=== PATIENT | female | born 1995 | race Caucasian/White ===

== ENCOUNTER → 2019-05-10 11:52 | Outpatient (BNVA) | payer MEDICAID, SELFPAY | PROVIDERS: Visit Provider Social Worker | DX: F31.12 Bipolar disorder, current episode manic without psychotic features, moderate (principal); F43.12 Post-traumatic stress disorder, chronic; F60.3 Borderline personality disorder | CPT/HCPCS: 90834 ==

== ENCOUNTER 2019-05-29 11:03 | Emergency (ER) | payer MEDICAID, SELFPAY ==
[2019-05-29 11:16] VITALS: BP 126/91; PULSE 84; RESP 16; TEMP 36.9; O2SAT 99; BMI 35.2
[2019-05-29 11:28] VITALS: O2SAT 97
--- NOTE | 2019-05-29 11:34 | XR_ITS ---
WS: [id number] XR chest 1V portable [id number] REASON FOR EXAM: admission FINDINGS: The heart and mediastinal interfaces were normal. The lung lopez are well aerated no pneumonia, pleural effusion, pulmonary edema, no mass effect. The hilum and apices are normal. No osseous abnormalities. XR/XR chest 1V portable [id number] IMPRESSION: No active cardiopulmonary disease.
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
[2019-05-29 11:43] VITALS: PULSE 81; RESP 18; O2SAT 98
[2019-05-29 11:48] VITALS: PULSE 78
[2019-05-29 11:53] LABS: Rapid Strep A Test Negative (Negative)
[2019-05-29 12:02] LABS: Influenza A by IFA Negative (Negative); Influenza B by IFA Negative (Negative)
[2019-05-29 12:28] VITALS: BP 133/87; PULSE 80; RESP 17; O2SAT 98
== END 2019-05-29 12:29 | disposition home or self-care (01) ==
PROVIDERS: Emergency Provider Nurse Practitioner Family
DX: J02.9 Acute pharyngitis, unspecified (principal); R59.0 Localized enlarged lymph nodes; R05 Cough; R50.9 Fever, unspecified; J45.909 Unspecified asthma, uncomplicated; F17.200 Nicotine dependence, unspecified, uncomplicated
CPT/HCPCS: 71045; 87081; 87804; 87880; 94640; 99282; 99283; J7611

== ENCOUNTER → 2019-07-12 08:22 | Outpatient (BNVA) | payer MEDICAID, SELFPAY | PROVIDERS: Visit Provider Nurse Practitioner | DX: F31.71 Bipolar disorder, in partial remission, most recent episode hypomanic (principal) | CPT/HCPCS: 99214 ==

== ENCOUNTER 2019-08-03 13:55 | Outpatient (CLI) | payer MEDICAID, SELFPAY ==
--- NOTE | 2019-08-03 14:01 | XR_ITS ---
WS: [id number] PROCEDURE: XR chest 2V* [id number] CLINICAL INFORMATION: FEVER, WHEEZING, COUGH, ASTHMA EXACERBATION COMPARISON: May 29, 2019 FINDINGS: Heart: Normal cardiac silhouette. Lungs: Lungs are clear. No consolidation or pleural fluid. No acute pulmonary infiltrates. Bones: Normal visualized bony structures. XR/XR chest 2V* [id number] IMPRESSION: Normal chest
== END 2019-08-03 13:56 | disposition home or self-care (01) ==
LOC: RADWPI 13:59
PROVIDERS: PCP Nurse Practitioner Family; Visit Provider Nurse Practitioner Family
DX: R50.9 Fever, unspecified (principal); R05 Cough; J45.901 Unspecified asthma with (acute) exacerbation
CPT/HCPCS: 71046

== ENCOUNTER → 2019-08-16 08:24 | Outpatient (BNVA) | payer MEDICAID, SELFPAY | PROVIDERS: PCP Nurse Practitioner Family; Visit Provider Social Worker | DX: F31.71 Bipolar disorder, in partial remission, most recent episode hypomanic (principal) | CPT/HCPCS: 90834 ==

== ENCOUNTER → 2019-08-23 08:11 | Outpatient (BNVA) | payer MEDICAID, SELFPAY | PROVIDERS: PCP Nurse Practitioner Family; Visit Provider Nurse Practitioner | DX: F31.71 Bipolar disorder, in partial remission, most recent episode hypomanic (principal) | CPT/HCPCS: 80178; 99214 ==

== ENCOUNTER → 2019-09-06 08:35 | Outpatient (BNVA) | payer MEDICAID, SELFPAY | PROVIDERS: PCP Nurse Practitioner Family; Visit Provider Social Worker | DX: F31.71 Bipolar disorder, in partial remission, most recent episode hypomanic (principal) | CPT/HCPCS: 90832 ==

== ENCOUNTER 2019-09-09 16:40 | Emergency (ER) | payer MEDICAID, SELFPAY ==
[2019-09-09 16:48] VITALS: BMI 34.9
[2019-09-09 16:53] VITALS: BP 127/89; PULSE 78; RESP 16; TEMP 36.7; O2SAT 99
--- NOTE | 2019-09-09 17:05 | W.ED.ABDPA2 ---
Documented by User: TAJ Maxwell 09/09/19 21:01 HPI - Abdominal Pain General: Chief Complaint: Abdominal Pain Stated Complaint: L ABD PAIN/RECTAL BLEEDING/V Time Seen by Provider: 09/09/19 17:04 History of Present Illness: HPI narrative: Patient is a 24-year-old female comes to the ED with left lower quadrant abdominal pain, nausea/vomiting and diarrhea with red blood. Patient has a past medical history of IBS and has had colonoscopies in the past. Patient says symptoms started about 3 to 4 days ago. She is also had some fever and chills during that time. She had multiple episodes of vomiting and many episodes of diarrhea. She says she sometimes has trouble controlling her diarrhea. Her stools are described as loose, yellow and floating. She describes as having a little bit of bright red blood in the diarrhea recently. The abdominal pain is located in the left lower quadrant and she currently rates it a 5 out of 10. Patient also says that in the past she has had some problems with drinking alcohol but none currently. Patient does say that she takes Tylenol frequently for headaches. She said in the last week to 2 weeks she is taken Tylenol almost daily anywhere from 1500 to 3000 mg. She endorses decreased appetite over the past couple days. Denies any dysuria, hematuria, vaginal discharge. Associated Symptoms: Reports chills, diarrhea, fever(s), hematochezia (bright red), nausea and vomiting; Denies constipation, dysuria and hematuria Review of Systems Const: Reports: fever(s), chills and change in appetite (decreased); Denies: fatigue Eyes: Denies: change in vision or eye discomfort ENMT: Denies: throat pain, odynophagia, nasal discharge or nasal congestion Card: Denies: chest pain, palpitations, edema, swelling of feet/ankles, dyspnea on exertion or orthopnea Resp: Denies: dyspnea, productive cough or non-productive cough GI: Reports: abdominal pain (LLQ), nausea, vomiting, diarrhea and hematochezia (bright red); Denies: constipation : Denies: flank pain, dysuria or hematuria Musc: Denies: neck pain, back pain or extremity swelling Skin/Breast: Denies: rash or new lesions Neuro: Denies: headache(s), numbness in extremities or weakness in extremities PFSH ED PFSH: Medical History Bipolar disorder, in partial remission, most recent episode hypomanic Social History Smoking and tobacco status: current every day smoker Physical Exam Const: COMMON NORMALS: no acute distress, patient oriented x3 and alert GENERAL APPEARANCE: cooperative, comfortable and well hydrated NUTRITIONAL APPEARANCE: obese HENMT: COMMON NORMALS: normocephalic HEAD & SCALP: normocephalic MOUTH: Normal oral and palatal mucosa present THROAT: posterior oropharynx normal and uvula midline Eye: COMMON NORMALS: Equal, round and reactive pupils present PUPIL: Yes Equal, round and reactive pupils present Neck/C-Spine: COMMON NORMALS: supple GENERAL: Yes normal visual inspection Resp: COMMON NORMALS: normal respiratory effort, No retractions, No use of accessory muscles and clear to auscultation bilaterally EFFORT & INSPECTION: Yes able to speak in complete sentences AUSCULTATION: clear to auscultation bilaterally Cardio: COMMON NORMALS: regular rate, regular rhythm, S1 normal heart sound present, S2 normal heart sound present, No gallops present (Cardio), No clicks present (Cardio), No murmurs present (Cardio) and Peripheral pulses 2+ throughout RATE: regular rate RHYTHM: regular rhythm HEART SOUNDS: S1 normal heart sound present and S2 normal heart sound present PERIPHERAL PULSES: Peripheral pulses 2+ throughout GI: COMMON NORMALS: Normal to inspection, nondistended, normoactive bowel sounds present, Soft to palpation and no masses INSPECTION: Yes central obesity AUSCULTATION: Yes normoactive bowel sounds PALPATION: Yes Soft to palpation and Yes Tenderness to palpation present (GI) Details: LLQ (mild tenderness) : COMMON NORMALS: Yes no CVA tenderness BLADDER/KIDNEY EXAM: Yes no CVA tenderness Back/Pelvis: COMMON NORMALS: no CVA tenderness Extremity: COMMON NORMALS: normal to inspection and no pedal edema Neuro: COMMON NORMALS: patient oriented x3 SENSORIUM/ORIENTATION: Yes alert GAIT: Yes Normal gait present Skin: COMMON NORMALS: no rashes or lesions noted GENERAL SKIN EXAM: no rashes or lesions noted and dry skin Course Vital Signs: Vital signs: Vital Signs Temperature 98.1 F 09/09/19 16:53 Pulse Rate 71 09/09/19 20:29 Respiratory Rate 16 06/04/20 20:29 Blood Pressure 150/92 09/09/19 20:29 Pulse Oximetry 98 09/09/19 20:29 MDM - Abdominal Pain MDM Narrative: Medical decision making narrative: Patient is a 24-year-old female comes to the ED with left lower quadrant abdominal pain, nausea/vomiting and diarrhea described as yellow and floating. Past medical history of IBS and has had several colonoscopies in the past. Patient states she has been taking Tylenol up to 3 g daily for the past 1 to 2 weeks and has had some problems with alcohol in the past. CBC and CMP were unremarkable. Liver enzymes AST and ALT were elevated 842 and 581 respectively. Hepatitis panel was nonreactive and acetaminophen levels were checked and were normal. CT of the abdomen and pelvis showed some chronic inflammation in the colon. Patient was diagnosed with elevated liver enzymes and told to stop taking Tylenol and to abstain from drinking alcohol. Patient was also told to reduce Seroquel dose 200 mg and to contact behavioral health doctor who prescribes med to discuss med dose changes. Patient will follow-up with her PCP in a week to recheck liver enzymes and I placed referral to Dr. Anderson for patient to get further evaluation. Patient understood and agreed with plan. Lab Data: Attestation: I reviewed the patient's lab results. Labs: Lab Results 09/09/19 09/09/19 09/09/19 Range/Units 17:15 17:15 17:25 WBC 5.1 (4.0-10.0) 10^3/ uL RBC 4.85 (4.1-5.3) 10^6/u L Hgb 13.3 (11.5-15.3) g/dL Hct 41.1 (37.0-47.0) % MCV 84.7 (81-99) fL MCH 27.4 L (28.0-34.0) pg MCHC 32.4 (30.0-36.0) g/dL RDW 12.8 (12.1-15.1) % Plt Count 180 (130-400) 10^3/c mm MPV 10.9 H (7.4-10.4) fL Neut % (Auto) 48.5 % Lymph % (Auto) 30.3 % Deuel % (Auto) 17.2 % Eos % (Auto) 2.8 % Baso % (Auto) 0.8 % Neut # (Auto) 2.5 (1.8-7.7) 10^3/u L Lymph # (Auto) 1.5 (0.8-4.8) 10^3/u L Deuel # (Auto) 0.9 (0.2-0.9) 10^3/u L Eos # (Auto) 0.1 (0.0-0.8) 10^3/u L Baso # (Auto) 0.0 (0.0-0.1) 10^3/u L Nucleated RBC % (a uto) 0 % Nucleated RBCs # 0.0 /100WBC ESR (0-15) mm/hr Sodium (136-145) mmol/L Potassium (3.5-5.1) mmol/L Chloride (98-107) mmol/L Carbon Dioxide (22-29) mmol/L Anion Gap (5-19) BUN (6-20) mg/dL Creatinine (0.5-0.9) mg/dL GFR Calculation (90-130) mL/min Glucose (65-115) mg/dL Calculated Osmolal ity (285-295) mOsm/k g Calcium (8.5-10.5) mg/dL Total Bilirubin (0.15-1.2) mg/dL AST (0-32) U/L ALT (0-33) U/L Alkaline Phosphata se (35-105) IU/L C-Reactive Protein (0.0-4.9) mg/L Total Protein (6.6-8.7) g/dL Albumin (3.5-5.2) g/dL Globulin (1.3-4.6) g/dL Lipase (13-60) U/L Urine Color Yellow (Yellow) Urine Appearance Clear (CLEAR) Urine pH 5 (5-7) Ur Specific Gravit y 1.025 (1.005-1.030) Urine Protein Neg (Negative) Urine Glucose (UA) Norm (Normal) Urine Ketones Negative (Negative) Urine Blood Neg (Negative) Urine Nitrate Negative (Negative) Urine Bilirubin Neg (NEGATIVE) Urine Urobilinogen Norm (Negative) mg/dL Ur Leukocyte Libby ase Negative (Negative) Urine HCG, Qual Negative (Negative) Acetaminophen (10-30) ug/mL Ethyl Alcohol (0-10) mg/dL Hepatitis A IgM Ab (Nonreactive) Hep Bs Antigen (Nonreactive) Hep Bs Antibody (0-8.5) Hep B Core Total A b (Nonreactive) Hepatitis C Antibo dy (Nonreactive) 09/09/19 09/09/19 09/09/19 Range/Units 17:25 17:25 17:25 WBC (4.0-10.0) 10^3/ uL RBC (4.1-5.3) 10^6/u L Hgb (11.5-15.3) g/dL Hct (37.0-47.0) % MCV (81-99) fL MCH (28.0-34.0) pg MCHC (30.0-36.0) g/dL RDW (12.1-15.1) % Plt Count (130-400) 10^3/c mm MPV (7.4-10.4) fL Neut % (Auto) % Lymph % (Auto) % Deuel % (Auto) % Eos % (Auto) % Baso % (Auto) % Neut # (Auto) (1.8-7.7) 10^3/u L Lymph # (Auto) (0.8-4.8) 10^3/u L Deuel # (Auto) (0.2-0.9) 10^3/u L Eos # (Auto) (0.0-0.8) 10^3/u L Baso # (Auto) (0.0-0.1) 10^3/u L Nucleated RBC % (a uto) % Nucleated RBCs # /100WBC ESR 9 (0-15) mm/hr Sodium 138 (136-145) mmol/L Potassium 3.5 (3.5-5.1) mmol/L Chloride 106 (98-107) mmol/L Carbon Dioxide 23 (22-29) mmol/L Anion Gap 12.5 (5-19) BUN 10 (6-20) mg/dL Creatinine 0.6 (0.5-0.9) mg/dL GFR Calculation 125.0 (90-130) mL/min Glucose 80 (65-115) mg/dL Calculated Osmolal ity 281 L (285-295) mOsm/k g Calcium 8.9 (8.5-10.5) mg/dL Total Bilirubin 0.3 (0.15-1.2) mg/dL AST 842 H (0-32) U/L ALT 581 H (0-33) U/L Alkaline Phosphata se 61 (35-105) IU/L C-Reactive Protein 9.1 H (0.0-4.9) mg/L Total Protein 6.6 (6.6-8.7) g/dL Albumin 4.5 (3.5-5.2) g/dL Globulin 2.1 (1.3-4.6) g/dL Lipase 16 (13-60) U/L Urine Color (Yellow) Urine Appearance (CLEAR) Urine pH (5-7) Ur Specific Gravit y (1.005-1.030) Urine Protein (Negative) Urine Glucose (UA) (Normal) Urine Ketones (Negative) Urine Blood (Negative) Urine Nitrate (Negative) Urine Bilirubin (NEGATIVE) Urine Urobilinogen (Negative) mg/dL Ur Leukocyte Libby ase (Negative) Urine HCG, Qual (Negative) Acetaminophen (10-30) ug/mL Ethyl Alcohol (0-10) mg/dL Hepatitis A IgM Ab (Nonreactive) Hep Bs Antigen (Nonreactive) Hep Bs Antibody (0-8.5) Hep B Core Total A b (Nonreactive) Hepatitis C Antibo dy (Nonreactive) 09/09/19 09/09/19 09/09/19 Range/Units 17:25 17:25 17:25 WBC (4.0-10.0) 10^3/ uL RBC (4.1-5.3) 10^6/u L Hgb (11.5-15.3) g/dL Hct (37.0-47.0) % MCV (81-99) fL MCH (28.0-34.0) pg MCHC (30.0-36.0) g/dL RDW (12.1-15.1) % Plt Count (130-400) 10^3/c mm MPV (7.4-10.4) fL Neut % (Auto) % Lymph % (Auto) % Deuel % (Auto) % Eos % (Auto) % Baso % (Auto) % Neut # (Auto) (1.8-7.7) 10^3/u L Lymph # (Auto) (0.8-4.8) 10^3/u L Deuel # (Auto) (0.2-0.9) 10^3/u L Eos # (Auto) (0.0-0.8) 10^3/u L Baso # (Auto) (0.0-0.1) 10^3/u L Nucleated RBC % (a uto) % Nucleated RBCs # /100WBC ESR (0-15) mm/hr Sodium (136-145) mmol/L Potassium (3.5-5.1) mmol/L Chloride (98-107) mmol/L Carbon Dioxide (22-29) mmol/L Anion Gap (5-19) BUN (6-20) mg/dL Creatinine (0.5-0.9) mg/dL GFR Calculation (90-130) mL/min Glucose (65-115) mg/dL Calculated Osmolal ity (285-295) mOsm/k g Calcium (8.5-10.5) mg/dL Total Bilirubin (0.15-1.2) mg/dL AST (0-32) U/L ALT (0-33) U/L Alkaline Phosphata se (35-105) IU/L C-Reactive Protein (0.0-4.9) mg/L Total Protein (6.6-8.7) g/dL Albumin (3.5-5.2) g/dL Globulin (1.3-4.6) g/dL Lipase (13-60) U/L Urine Color (Yellow) Urine Appearance (CLEAR) Urine pH (5-7) Ur Specific Gravit y (1.005-1.030) Urine Protein (Negative) Urine Glucose (UA) (Normal) Urine Ketones (Negative) Urine Blood (Negative) Urine Nitrate (Negative) Urine Bilirubin (NEGATIVE) Urine Urobilinogen (Negative) mg/dL Ur Leukocyte Libby ase (Negative) Urine HCG, Qual (Negative) Acetaminophen < 5.0 L (10-30) ug/mL Ethyl Alcohol < 10 (0-10) mg/dL Hepatitis A IgM Ab Non-reactive (Nonreactive) Hep Bs Antigen Non-reactive (Nonreactive) Hep Bs Antibody 80.1 H (0-8.5) Hep B Core Total A b Non-reactive (Nonreactive) Hepatitis C Antibo dy Non-reactive (Nonreactive) Imaging Data ^: CT Abd/Pel: Attestation: I personally reviewed and interpreted this imaging study as follows: Radiologist's impression: [address] [place] [address] CT Scan Report Signed Patient: Amie Aguilar Unit #: [id number] : 1995 Age/Sex: 24 / F ADM Date: 09/09/19 Loc: ER Room/Bed: Attending Dr: Ordering Provider/Ordering MD: Denzel Wright Date of Service: 09/09/19 Procedure(s): CT abdomen pelvis w con* [id number] Accession Number(s): [id number] Report Number: [id number] PROCEDURE INFORMATION: Exam: CT Abdomen And Pelvis With Contrast Exam date and time: 09/09/2019 6:20 PM Age: 24 years old Clinical indication: Nausea and vomiting and other: Rectal bleeding; Abdominal pain; Localized; Left; Patient HX: H/o ibs; Additional info: Llq abdom pain, diarrhea, n/v TECHNIQUE: Imaging protocol: Computed tomography of the abdomen and pelvis with intravenous contrast. Radiation optimization: All CT scans at this facility use at least one of these dose optimization techniques: automated exposure control; mA and/or kV adjustment per patient size (includes targeted exams where dose is matched to clinical indication); or iterative reconstruction. Contrast material: OMNI 300; Contrast volume: 95 ml; Contrast route: IV COMPARISON: No relevant prior studies available. FINDINGS: There are tiny bilateral pleural effusions with adjacent atelectasis. Liver, spleen, pancreas, kidneys, and adrenal glands appear unremarkable. Urinary bladder is poorly distended. Appendix appears grossly unremarkable. Bowel loops do not appear significantly dilated. Fat deposition in pettit of proximal colon may be due to chronic inflammation. No large amount of free fluid demonstrated. Abdominal aorta does not appear dilated. CT/CT abdomen pelvis w con* [id number] IMPRESSION: There are tiny bilateral pleural effusions with adjacent atelectasis. Fat deposition in pettit of proximal colon may be due to chronic inflammation. Total DLP: 2003.64 mGy-cm Radiation Dose CTDIVOL = (mGy): DLP = 2003.64 (mGy-cm) Dictated By: Fay Meyers MD Signed By: Fay Meyers MD Signed Date/Time: 09/09/191858 DD/ 57 Discharge Plan Discharge Patient Disposition: Home, Self-Care Clinical Impression: Elevated liver enzymes, Chronic inflammation of colon Condition: Stable Prescriptions: No Action lithium carbonate 300 mg tablet extended release 600 mg PO BID Qty: 120 RF: 1 prazosin 2 mg capsule 2 mg PO BEDTIME Qty: 30 RF: 1 Seroquel 100 mg tablet 150 mg PO BEDTIME Qty: 45 RF: 1 sertraline [Zoloft] 50 mg tablet 50 mg PO DAILY Qty: 30 RF: 1 aspirin 325 mg Tablet 325 mg PO PRN RF: 0 Tylenol Extra Strength 500 mg Tablet 1,000 mg PO PRN RF: 0 ibuprofen 200 mg Tablet 800 - 1,000 mg PO PRN RF: 0 ProAir HFA 90 mcg/actuation Hfa Aerosol Inhaler 2 puff INHALATION Q4H PRN (Reason: Shortness Of Breath) RF: 0 Ambien 5 mg tablet 5 mg PO BEDTIME RF: 0 Discharge Orders: Discharge Order (Routine); Ordered 09/09/19 Ordered By: Denzel Wright Referrals: EVELYNE TOURE FNP [Primary Care Provider] - Discharge Diet: Regular Discharge Activity: Resume usual activity Activity Restrictions/Additional Instructions: I placed a referral for you to see Dr. Anderson the [facility] internal medicine doctor. You can also follow-up with your PCP in the next week for reevaluation. Recheck liver enzymes (AST and ALT) at your next appointment. Stop drinking alcohol and taking Tylenol. Also, call your behavioral health doctor to talk to him about reducing your Seroquel dose. I recommend reducing your Seroquel dose down to 100 mg at night. Discharge Date/Time: 09/09/19 20:34 Coding Level of Care Code ED Composing Room Machinist Apprentice for Chg Fwd Exam Comprehensive Documented by User: Yonathan Robbins DO 09/09/19 22:50 HPI - Abdominal Pain General: Chief Complaint: Abdominal Pain Stated Complaint: L ABD PAIN/RECTAL BLEEDING/V Time Seen by Provider: 09/09/19 17:04 PFSH ED PFSH: Medical History Bipolar disorder, in partial remission, most recent episode hypomanic Social History Smoking and tobacco status: current every day smoker Course Vital Signs: Vital signs: Vital Signs Temperature 98.1 F 09/09/19 16:53 Pulse Rate 71 09/09/19 20:29 Respiratory Rate 16 09/09/19 20:29 Blood Pressure 150/92 09/09/19 20:29 Pulse Oximetry 98 09/09/19 20:29 MDM - Abdominal Pain MDM Narrative: Medical decision making narrative: Reviewed with TAJ Maxwell agree with assessment and plan discharge home follow-up with Dr. Anderson recommend abstinence from all alcohol recommend decreasing quit dipping to 50 nightly and recommend absolutely no Tylenol needs follow-up liver functions. Lab Data: Labs: Lab Results 09/09/19 09/09/19 09/09/19 Range/Units 17:15 17:15 17:25 WBC 5.1 (4.0-10.0) 10^3/ uL RBC 4.85 (4.1-5.3) 10^6/u L Hgb 13.3 (11.5-15.3) g/dL Hct 41.1 (37.0-47.0) % MCV 84.7 (81-99) fL MCH 27.4 L (28.0-34.0) pg MCHC 32.4 (30.0-36.0) g/dL RDW 12.8 (12.1-15.1) % Plt Count 180 (130-400) 10^3/c mm MPV 10.9 H (7.4-10.4) fL Neut % (Auto) 48.5 % Lymph % (Auto) 30.3 % Deuel % (Auto) 17.2 % Eos % (Auto) 2.8 % Baso % (Auto) 0.8 % Neut # (Auto) 2.5 (1.8-7.7) 10^3/u L Lymph # (Auto) 1.5 (0.8-4.8) 10^3/u L Deuel # (Auto) 0.9 (0.2-0.9) 10^3/u L Eos # (Auto) 0.1 (0.0-0.8) 10^3/u L Baso # (Auto) 0.0 (0.0-0.1) 10^3/u L Nucleated RBC % (a uto) 0 % Nucleated RBCs # 0.0 /100WBC ESR (0-15) mm/hr Sodium (136-145) mmol/L Potassium (3.5-5.1) mmol/L Chloride (98-107) mmol/L Carbon Dioxide (22-29) mmol/L Anion Gap (5-19) BUN (6-20) mg/dL Creatinine (0.5-0.9) mg/dL GFR Calculation (90-130) mL/min Glucose (65-115) mg/dL Calculated Osmolal ity (285-295) mOsm/k g Calcium (8.5-10.5) mg/dL Total Bilirubin (0.15-1.2) mg/dL AST (0-32) U/L ALT (0-33) U/L Alkaline Phosphata se (35-105) IU/L C-Reactive Protein (0.0-4.9) mg/L Total Protein (6.6-8.7) g/dL Albumin (3.5-5.2) g/dL Globulin (1.3-4.6) g/dL Lipase (13-60) U/L Urine Color Yellow (Yellow) Urine Appearance Clear (CLEAR) Urine pH 5 (5-7) Ur Specific Gravit y 1.025 (1.005-1.030) Urine Protein Neg (Negative) Urine Glucose (UA) Norm (Normal) Urine Ketones Negative (Negative) Urine Blood Neg (Negative) Urine Nitrate Negative (Negative) Urine Bilirubin Neg (NEGATIVE) Urine Urobilinogen Norm (Negative) mg/dL Ur Leukocyte Libby ase Negative (Negative) Urine HCG, Qual Negative (Negative) Acetaminophen (10-30) ug/mL Ethyl Alcohol (0-10) mg/dL Hepatitis A IgM Ab (Nonreactive) Hep Bs Antigen (Nonreactive) Hep Bs Antibody (0-8.5) Hep B Core Total A b (Nonreactive) Hepatitis C Antibo dy (Nonreactive) 09/09/19 09/09/19 09/09/19 Range/Units 17:25 17:25 17:25 WBC (4.0-10.0) 10^3/ uL RBC (4.1-5.3) 10^6/u L Hgb (11.5-15.3) g/dL Hct (37.0-47.0) % MCV (81-99) fL MCH (28.0-34.0) pg MCHC (30.0-36.0) g/dL RDW (12.1-15.1) % Plt Count (130-400) 10^3/c mm MPV (7.4-10.4) fL Neut % (Auto) % Lymph % (Auto) % Deuel % (Auto) % Eos % (Auto) % Baso % (Auto) % Neut # (Auto) (1.8-7.7) 10^3/u L Lymph # (Auto) (0.8-4.8) 10^3/u L Deuel # (Auto) (0.2-0.9) 10^3/u L Eos # (Auto) (0.0-0.8) 10^3/u L Baso # (Auto) (0.0-0.1) 10^3/u L Nucleated RBC % (a uto) % Nucleated RBCs # /100WBC ESR 9 (0-15) mm/hr Sodium 138 (136-145) mmol/L Potassium 3.5 (3.5-5.1) mmol/L Chloride 106 (98-107) mmol/L Carbon Dioxide 23 (22-29) mmol/L Anion Gap 12.5 (5-19) BUN 10 (6-20) mg/dL Creatinine 0.6 (0.5-0.9) mg/dL GFR Calculation 125.0 (90-130) mL/min Glucose 80 (65-115) mg/dL Calculated Osmolal ity 281 L (285-295) mOsm/k g Calcium 8.9 (8.5-10.5) mg/dL Total Bilirubin 0.3 (0.15-1.2) mg/dL AST 842 H (0-32) U/L ALT 581 H (0-33) U/L Alkaline Phosphata se 61 (35-105) IU/L C-Reactive Protein 9.1 H (0.0-4.9) mg/L Total Protein 6.6 (6.6-8.7) g/dL Albumin 4.5 (3.5-5.2) g/dL Globulin 2.1 (1.3-4.6) g/dL Lipase 16 (13-60) U/L Urine Color (Yellow) Urine Appearance (CLEAR) Urine pH (5-7) Ur Specific Gravit y (1.005-1.030) Urine Protein (Negative) Urine Glucose (UA) (Normal) Urine Ketones (Negative) Urine Blood (Negative) Urine Nitrate (Negative) Urine Bilirubin (NEGATIVE) Urine Urobilinogen (Negative) mg/dL Ur Leukocyte Libby ase (Negative) Urine HCG, Qual (Negative) Acetaminophen (10-30) ug/mL Ethyl Alcohol (0-10) mg/dL Hepatitis A IgM Ab (Nonreactive) Hep Bs Antigen (Nonreactive) Hep Bs Antibody (0-8.5) Hep B Core Total A b (Nonreactive) Hepatitis C Antibo dy (Nonreactive) 09/09/19 09/09/19 09/09/19 Range/Units 17:25 17:25 17:25 WBC (4.0-10.0) 10^3/ uL RBC (4.1-5.3) 10^6/u L Hgb (11.5-15.3) g/dL Hct (37.0-47.0) % MCV (81-99) fL MCH (28.0-34.0) pg MCHC (30.0-36.0) g/dL RDW (12.1-15.1) % Plt Count (130-400) 10^3/c mm MPV (7.4-10.4) fL Neut % (Auto) % Lymph % (Auto) % Deuel % (Auto) % Eos % (Auto) % Baso % (Auto) % Neut # (Auto) (1.8-7.7) 10^3/u L Lymph # (Auto) (0.8-4.8) 10^3/u L Deuel # (Auto) (0.2-0.9) 10^3/u L Eos # (Auto) (0.0-0.8) 10^3/u L Baso # (Auto) (0.0-0.1) 10^3/u L Nucleated RBC % (a uto) % Nucleated RBCs # /100WBC ESR (0-15) mm/hr Sodium (136-145) mmol/L Potassium (3.5-5.1) mmol/L Chloride (98-107) mmol/L Carbon Dioxide (22-29) mmol/L Anion Gap (5-19) BUN (6-20) mg/dL Creatinine (0.5-0.9) mg/dL GFR Calculation (90-130) mL/min Glucose (65-115) mg/dL Calculated Osmolal ity (285-295) mOsm/k g Calcium (8.5-10.5) mg/dL Total Bilirubin (0.15-1.2) mg/dL AST (0-32) U/L ALT (0-33) U/L Alkaline Phosphata se (35-105) IU/L C-Reactive Protein (0.0-4.9) mg/L Total Protein (6.6-8.7) g/dL Albumin (3.5-5.2) g/dL Globulin (1.3-4.6) g/dL Lipase (13-60) U/L Urine Color (Yellow) Urine Appearance (CLEAR) Urine pH (5-7) Ur Specific Gravit y (1.005-1.030) Urine Protein (Negative) Urine Glucose (UA) (Normal) Urine Ketones (Negative) Urine Blood (Negative) Urine Nitrate (Negative) Urine Bilirubin (NEGATIVE) Urine Urobilinogen (Negative) mg/dL Ur Leukocyte Libby ase (Negative) Urine HCG, Qual (Negative) Acetaminophen < 5.0 L (10-30) ug/mL Ethyl Alcohol < 10 (0-10) mg/dL Hepatitis A IgM Ab Non-reactive (Nonreactive) Hep Bs Antigen Non-reactive (Nonreactive) Hep Bs Antibody 80.1 H (0-8.5) Hep B Core Total A b Non-reactive (Nonreactive) Hepatitis C Antibo dy Non-reactive (Nonreactive) Discharge Plan Discharge Patient Disposition: Home, Self-Care Clinical Impression: Elevated liver enzymes, Chronic inflammation of colon Condition: Stable Prescriptions: No Action lithium carbonate 300 mg tablet extended release 600 mg PO BID Qty: 120 RF: 1 prazosin 2 mg capsule 2 mg PO BEDTIME Qty: 30 RF: 1 Seroquel 100 mg tablet 150 mg PO BEDTIME Qty: 45 RF: 1 sertraline [Zoloft] 50 mg tablet 50 mg PO DAILY Qty: 30 RF: 1 aspirin 325 mg Tablet 325 mg PO PRN RF: 0 Tylenol Extra Strength 500 mg Tablet 1,000 mg PO PRN RF: 0 ibuprofen 200 mg Tablet 800 - 1,000 mg PO PRN RF: 0 ProAir HFA 90 mcg/actuation Hfa Aerosol Inhaler 2 puff INHALATION Q4H PRN (Reason: Shortness Of Breath) RF: 0 Ambien 5 mg tablet 5 mg PO BEDTIME RF: 0 Discharge Orders: Discharge Order (Routine); Ordered 09/09/19 Ordered By: Denzel Wright Referrals: EVELYNE TOURE FNP [Primary Care Provider] - Discharge Diet: Regular Discharge Activity: Resume usual activity Activity Restrictions/Additional Instructions: I placed a referral for you to see Dr. Anderson the [facility] internal medicine doctor. You can also follow-up with your PCP in the next week for reevaluation. Recheck liver enzymes (AST and ALT) at your next appointment. Stop drinking alcohol and taking Tylenol. Also, call your behavioral health doctor to talk to him about reducing your Seroquel dose. I recommend reducing your Seroquel dose down to 100 mg at night. Discharge Date/Time: 09/09/19 20:34 Coding Level of Care Code ED Composing Room Machinist Apprentice for Jarret Fwd Exam Comprehensive
[2019-09-09 17:31] VITALS: BP 134/91; PULSE 72; RESP 16; O2SAT 99
[2019-09-09 17:32] LABS: Basophils % 0.8 %; Eosinophils # 0.1 10^3/uL (0.0-0.8); Eosinophils % 2.8 %; Hematocrit 41.1 % (37.0-47.0); Hemoglobin 13.3 g/dL (11.5-15.3); Lymphocytes # 1.5 10^3/uL (0.8-4.8); Lymphocytes % 30.3 %; Mean Corpuscular HGB Conc 32.4 g/dL (30.0-36.0); Mean Corpuscular Hemoglobin 27.4 pg (28.0-34.0); Mean Corpuscular Volume 84.7 fL (81-99); Mean Platelet Volume 10.9 fL (7.4-10.4); Monocytes # 0.9 10^3/uL (0.2-0.9); Monocytes % 17.2 %; Neutrophils # 2.5 10^3/uL (1.8-7.7); Neutrophils % 48.5 %; Nucleated Red Blood Cells % 0 %; Platelet Count 180 10^3/cmm (130-400); Red Blood Count 4.85 10^6/uL (4.1-5.3); Red Cell Distribution Width 12.8 % (12.1-15.1); White Blood Count 5.1 10^3/uL (4.0-10.0)
--- NOTE | 2019-09-09 17:32 | CTR_ITS ---
PROCEDURE INFORMATION: Exam: CT Abdomen And Pelvis With Contrast Exam date and time: 09/09/2019 6:20 PM Age: 24 years old Clinical indication: Nausea and vomiting and other: Rectal bleeding; Abdominal pain; Localized; Left; Patient HX: H/o ibs; Additional info: Llq abdom pain, diarrhea, n/v TECHNIQUE: Imaging protocol: Computed tomography of the abdomen and pelvis with intravenous contrast. Radiation optimization: All CT scans at this facility use at least one of these dose optimization techniques: automated exposure control; mA and/or kV adjustment per patient size (includes targeted exams where dose is matched to clinical indication); or iterative reconstruction. Contrast material: OMNI 300; Contrast volume: 95 ml; Contrast route: IV COMPARISON: No relevant prior studies available. FINDINGS: There are tiny bilateral pleural effusions with adjacent atelectasis. Liver, spleen, pancreas, kidneys, and adrenal glands appear unremarkable. Urinary bladder is poorly distended. Appendix appears grossly unremarkable. Bowel loops do not appear significantly dilated. Fat deposition in pettit of proximal colon may be due to chronic inflammation. No large amount of free fluid demonstrated. Abdominal aorta does not appear dilated. CT/CT abdomen pelvis w con* [id number] IMPRESSION: There are tiny bilateral pleural effusions with adjacent atelectasis. Fat deposition in pettit of proximal colon may be due to chronic inflammation. Total DLP: 2003.64 mGy-cm Radiation Dose CTDIVOL = (mGy): DLP = 2003.64 (mGy-cm)
[2019-09-09 17:38] LABS: Add Urine Microscopic? NO
[2019-09-09 17:44] VITALS: RESP 16
[2019-09-09] MEDS: ondansetron 2 mg/ML SDV 2 mL 4 MG IVP (17:44)
[2019-09-09] MEDS: morphine 4 mg/mL SDV 1 mL 2 MG IVP (17:44)
[2019-09-09] MEDS: sodium chloride 0.9% 1,000 ML 999 ML IV (17:45)
[2019-09-09 17:48] LABS: Bilirubin Urine Neg (NEGATIVE); Blood Urine Neg (Negative); Glucose Urine UA Norm (Normal); Ketones Urine Negative (Negative); Leukocyte Esterase Urine Negative (Negative); Nitrate Urine Negative (Negative); Protein Urine Neg (Negative); Specific Gravity, Urine 1.025 (1.005-1.030); Urine Appearance Clear (CLEAR); Urine Color Yellow (Yellow); Urobilinogen Urine Norm (Negative); pH Urine 5 (5-7)
[2019-09-09 17:53] LABS: Alanine Aminotransferase 581 U/L (0-33); Albumin Level 4.5 g/dL (3.5-5.2); Alkaline Phosphatase 61 IU/L (35-105); Anion Gap 12.5 (5-19); Blood Urea Nitrogen 10 mg/dL (6-20); Calcium 8.9 mg/dL (8.5-10.5); Carbon Dioxide 23 mmol/L (22-29); Chloride 106 mmol/L (98-107); Globulin 2.1 g/dL (1.3-4.6); Glucose 80 mg/dL (65-115); Lipase 16 U/L (13-60); Osmolality Calculated 281 mOsm/kg (285-295); Potassium 3.5 mmol/L (3.5-5.1); Sodium 138 mmol/L (136-145); Total Bilirubin 0.3 mg/dL (0.15-1.2); Total Protein 6.6 g/dL (6.6-8.7)
[2019-09-09 18:06] LABS: C Reactive Protein 9.1 mg/L (0.0-4.9)
[2019-09-09 18:09] LABS: Aspartate Amino Transferase 842 U/L (0-32)
[2019-09-09] MEDS: iohexol 300 mg/mL 100 mL Btl IV (18:25)
[2019-09-09 18:34] LABS: Erythrocyte Sedimentation Rate 9 mm/hr (0-15)
[2019-09-09 18:55] LABS: Hepatitis A Antibody IgM Non-Reactive (Nonreactive); Hepatitis B Core AB, Total Non-Reactive (Nonreactive); Hepatitis B Surface AB 80.1 (0-8.5); Hepatitis B Surface Antigen Non-Reactive (Nonreactive); Hepatitis C Virus Antibody Non-Reactive (Nonreactive)
[2019-09-09 18:59] LABS: Alcohol Level < 10 mg/dL (0-10)
[2019-09-09 19:47] VITALS: BP 147/90; PULSE 75; RESP 16; O2SAT 99
[2019-09-09 19:48] LABS: Acetaminophen < 5.0 ug/mL (10-30)
[2019-09-09 20:29] VITALS: BP 150/92; PULSE 71; RESP 16; O2SAT 98
--- NOTE | 2019-09-10 10:56 | DCPLANNER ---
manager economic had message so schedule a follow up appointment for patient with Dr. Anderson. manager economic called the office of Dr. Anderson, spoke with Huma. A follow up appointment is scheduled for Friday, September 13, 2019 at 10:30 with . manager economic called patient and gave patient the appointment information, patient stated that she would attend the scheduled appointment.
--- NOTE | 2019-09-14 10:04 | DCPLANNER ---
Patient did attend appointment scheduled for 09.13.[address] Anderson.
== END 2019-09-09 20:34 | disposition home or self-care (01) ==
PROVIDERS: Nurse Practitioner Family; Emergency Provider Physician Assistant; PCP Nurse Practitioner Family
DX: K52.9 Noninfective gastroenteritis and colitis, unspecified (principal); R74.8 Abnormal levels of other serum enzymes; Z79.82 Long term (current) use of aspirin; F17.210 Nicotine dependence, cigarettes, uncomplicated
CPT/HCPCS: 12345; 74177; 80053; 80307; 81003; 81025; 83690; 85025; 85651; 86140; 86705; 86706; 86709; 86803; 87340; 96361; 96374; 96375; 99283; J2270; J2405; J7030; Q9967

== ENCOUNTER → 2019-09-13 16:53 | Outpatient (BNVA) | payer MEDICAID, SELFPAY | PROVIDERS: PCP Nurse Practitioner Family; Visit Provider Internal Medicine | DX: R74.8 Abnormal levels of other serum enzymes (principal); R10.84 Generalized abdominal pain; K92.1 Melena | CPT/HCPCS: 80053 ==

== ENCOUNTER 2019-09-20 08:40 | Day surgery (SDC) | payer MEDICAID, SELFPAY ==
[2019-09-17 13:31] VITALS: BMI 36.6
[2019-09-20 08:59] VITALS: BP 127/85; PULSE 86; RESP 18; TEMP 36.2; O2SAT 98
[2019-09-20] MEDS: sodium chloride 0.9% 1,000 ML 30 ML IV (09:03)
--- NOTE | 2019-09-20 09:04 | ANES.PREANE2 ---
Pre-Anesthetic Assessment Pre-Anesthetic Assessment: Height/Weight: Height 1.83 m Weight 122.47 kg Temp Pulse Resp BP Pulse Ox 97.1 F L 86 18 127/85 98 09/20/19 08:59 09/20/19 08:59 09/20/19 08:59 09/20/19 08:59 09/20/19 08:59 Preop Diagnosis: pain bleeding Proposed Procedure: Operation Date: 09/20/19 09:30 Proposed Procedures p [id number]/r10.84/k92.1(Not Applicable) - Luis Anderson MD s Colonoscopy(Not Applicable) - Luis Anderson MD Last intake: Intake Last Liquid Date 09/19/19 Last Liquid Time 23:56 Last Solid Date 09/18/19 Last Solid Time 23:59 Social: Social History: Tobacco and No alcohol Exam: Pre-Anes Outpt Exam: alert, oriented x 3, clear to auscultation bilaterally and regular rate & rhythm Airway: Submandibular: WNL Cervical ROM: WNL MP: 2 Dentition: Other (teeth ok) History/ROS: No significant history except as noted Pulmonary: Pulmonary: Asthma (mild) and Sleep apnea CV/HEM: CV/HEM: HTN : : None reported Hepatic: Comments: Increased LFT GI: GI: GERD Metabolic: Metabolic: Morbid obesity Musc/skel: Musc/skel: Lower Back Pain Neuropsych: Neuropsych: Anxiety, Bipolar and Depression Anesthetic Plan: ASA status: 3 Anesthesia: Anesthesia Evaluation and MAC Risk of > 500 ml blood loss (7ml/kg in children): No Meds/Allergies Current Medications: Current Medications Generic Name Dose Route Start Last Admin Trade Name Freq PRN Reason Stop Dose Admin Sodium Chloride 1,000 mls @ 30 ml s/hr 09/20/19 08:30 09/20/19 09:03 Sodium Chloride 0.9% IV 09/21/19 08:29 30 mls/hr .Q24H DAI Administration PFSH Anesthesia PFSH: Medical History Bipolar disorder, in partial remission, most recent episode hypomanic Generalized postprandial abdominal pain Hematochezia Hemorrhage following tonsillectomy and adenoidectomy Surgical History (Updated 09/20/19 @ 09:06 by Bayron Estes MD) History of tonsillectomy Family History Other Cancer Diabetes Heart disease Social History Smoking and tobacco status: current every day smoker Alcohol intake: former Adopted: No Marital status: Single service: No History of recent travel: No Current gender identity: Female Data Anesthesia Cardiac Studies: No Data to Display
[2019-09-20 09:05] LABS: OR HCG Qualitative Urine Negative (Negative)
[2019-09-20 10:20] VITALS: BP 109/77; PULSE 72; RESP 18; TEMP 36.3; O2SAT 99
[2019-09-20 10:30] VITALS: BP 131/82; PULSE 76; RESP 18; O2SAT 99
[2019-09-21 10:36] LABS: H. Pylori / CLO Test Negative
--- NOTE | 2019-09-22 12:33 | W.PM.OPSUD ---
Surgery/Procedure H&P Update DATE OF PROCEDURE: September 22, 2019 DATE H&P PERFORMED: 09/13/19 PREOP DIAGNOSIS: pain bleeding PLANNED PROCEDURE: Operation Date: 09/20/19 09:30 Proposed Procedures p [id number]/r10.84/k92.1(Not Applicable) - Luis Anderson MD s Colonoscopy(Not Applicable) - Luis Anderson MD
== END 2019-09-20 10:44 | disposition home or self-care (01) ==
PROVIDERS: Anesthesiology; PCP Nurse Practitioner Family; Visit Provider Internal Medicine
PROC: 0DJ08ZZ Inspection of Upper Intestinal Tract, Via Natural or Artificial Opening Endoscopic (ICD-10-PCS; CPT 43235; principal; 2019-09-20 09:30)
PROC: 0DJD8ZZ Inspection of Lower Intestinal Tract, Via Natural or Artificial Opening Endoscopic (ICD-10-PCS; CPT 45378; 2019-09-20 09:30)
DX: K92.1 Melena (principal); R10.84 Generalized abdominal pain; K29.71 Gastritis, unspecified, with bleeding; I10 Essential (primary) hypertension; K21.9 Gastro-esophageal reflux disease without esophagitis; E66.01 Morbid (severe) obesity due to excess calories; Z68.36 Body mass index [BMI] 36.0-36.9, adult; G47.30 Sleep apnea, unspecified; F31.75 Bipolar disorder, in partial remission, most recent episode depressed; F17.210 Nicotine dependence, cigarettes, uncomplicated; Z79.82 Long term (current) use of aspirin
CPT/HCPCS: 12345; 43239; 45378; 84703; 87077; J2704; J7030

== ENCOUNTER → 2019-09-22 07:40 | Outpatient (BNVA) | payer MEDICAID, SELFPAY | PROVIDERS: PCP Nurse Practitioner Family; Visit Provider Nurse Practitioner | DX: F31.71 Bipolar disorder, in partial remission, most recent episode hypomanic (principal) | CPT/HCPCS: 99213 ==

== ENCOUNTER 2019-10-19 | Emergency (ER) | payer MEDICAID, SELFPAY ==
[2019-10-19 00:54] VITALS: BP 148/75; PULSE 71; RESP 18; TEMP 37.2; O2SAT 100; BMI 33.0
--- NOTE | 2019-10-19 01:28 | W.ED.FEMALGU ---
HPI - Female Genitourinary General: Chief complaint: Urogenital-Female Stated complaint: genital rash Time Seen by Provider: 10/19/19 01:04 Source: patient Mode of arrival: ambulatory Limitations: no limitations History of Present Illness: HPI Narrative: Amie is a 24-year-old female who comes in complaining of rash on her genital area. She states the symptoms have been present for the past 2 to 3 days. Denies any vaginal discharge or bleeding. She denies any dysuria or hematuria. Patient states she is been with a new sexual partner who also had a rash recently that was similar. She is unaware of anything that makes her symptoms better or worse other than urinating or touching the affected areas. She denies any fevers or chills or systemic symptoms. Associated symptoms: Deny abdominal pain, headache(s), nausea or syncope Date of Last Menstrual Period: 10/19/19 Review of Systems Const: Denies: fever(s), chills, body aches, fatigue, malaise or diaphoresis Eyes: Denies: change in vision, blurry vision, blind spots, photophobia, eye discharge or eye redness ENMT: Denies: throat pain, odynophagia, hoarseness, swelling of lips/tongue, oral sores, ear or mastoid pain, ear discharge, change in hearing or nasal discharge Card: Denies: chest pain, palpitations, irregular heart rhythm, edema, lightheadedness, syncope, pre-syncope, dyspnea on exertion or orthopnea Resp: Denies: dyspnea, productive cough, non-productive cough, wheezing, hemoptysis or chest congestion GI: Denies: abdominal pain, nausea, vomiting, hematemesis, coffee ground emesis, heartburn, diarrhea, constipation, GI cramping, hematochezia or melena : Denies: flank pain, dysuria, urinary frequency, urinary urgency or hematuria Musc: Denies: neck pain, back pain, extremity pain, extremity swelling, joint pain, joint swelling, joint redness, joint warmth or joint stiffness Skin/Breast: Reports: rash (See HPI) Neuro: Denies: headache(s), numbness in extremities, weakness in extremities, sensory changes, lack of coordination, difficulty walking, dizziness, vertigo, confusion, Slurred speech present or seizure-like activity Jeffrey/Lymph: Denies: easy bruising, easy bleeding, petechiae, purpura or enlarged lymph nodes All/Imm: Denies: urticaria, throat swelling, tongue swelling, facial swelling or acute wheezing PFSH ED PFSH: Medical History Bipolar disorder, in partial remission, most recent episode hypomanic Generalized postprandial abdominal pain Hematochezia Hemorrhage following tonsillectomy and adenoidectomy Surgical History History of tonsillectomy Family History Other Cancer Diabetes Heart disease Social History Smoking and tobacco status: current every day smoker Alcohol intake: former Adopted: No Marital status: Single service: No History of recent travel: No Current gender identity: Female Female Reproductive History: Date of last menstrual period: 10/19/19 Physical Exam Const: COMMON NORMALS: no acute distress, patient oriented x3, no limitations, healthy appearing and well nourished GENERAL APPEARANCE: cooperative, well kempt and well developed HENMT: COMMON NORMALS: normocephalic, atraumatic, external ears normal, EAC's normal and Normal external nose present HEAD & SCALP: normal to inspection, normocephalic and atraumatic FACE & SINUS: normal facial exam and face symmetric NOSE: Normal external nose present and Normal nares present EXTERNAL EAR: Yes external ears normal EXTERNAL AUDITORY CANAL: EAC's normal MOUTH: Normal oral and palatal mucosa present, lip normal and tongue normal Eye: COMMON NORMALS: Equal, round and reactive pupils present and conjunctivae normal GENERAL EYE: appearance normal, both eyes and all related structures ALIGNMENT: Yes alignment normal PERIORBITAL: periorbital findings normal EYELID: eyelids normal CONJUNCTIVA: Yes conjunctivae normal SCLERA: sclerae normal PUPIL: Yes Equal, round and reactive pupils present Neck/C-Spine: COMMON NORMALS: full ROM, no lymphadenopathy, supple, no meningeal signs and no JVD GENERAL: Yes normal visual inspection and Yes trachea midline Chest: COMMONS NORMALS: normal inspection of the chest and normal palpation of entire chest wall Resp: COMMON NORMALS: normal respiratory effort, No retractions and No use of accessory muscles EFFORT & INSPECTION: Yes able to speak in complete sentences and Yes symmetric chest movement AUSCULTATION: no crackles, no rales, no rhonchi and no wheezes Cardio: COMMON NORMALS: no JVD, regular rate, regular rhythm, S1 normal heart sound present and S2 normal heart sound present RATE: regular rate RHYTHM: regular rhythm HEART SOUNDS: S1 normal heart sound present, S2 normal heart sound present, no click, no gallops, no murmurs, no rubs and abnormal split S2 GI: COMMON NORMALS: Soft to palpation and No hepatosplenomegaly present PALPATION: Yes Soft to palpation, No Tenderness to palpation present (GI), No Guarding due to palpation present (GI), No Rigid due to palpation, Yes No hepatosplenomegaly present, No Hernia present, No Palpable mass present and No Pulsatile mass present : COMMON NORMALS: Yes no CVA tenderness BLADDER/KIDNEY EXAM: Yes no CVA tenderness EXTERNAL FEMALE EXAM: No Hernia present and Yes other (Herpetic lesions noted throughout the perineum and labia.) SPECULUM EXAM - VAGINA: Yes other (Patient cannot tolerate manual exam or speculum exam secondary to herpetic lesions. No obvious discharge or bleeding.) Back/Pelvis: COMMON NORMALS: no CVA tenderness, thoracic and lumbar spine normal to inspection, no thoracic nor lumbar tenderness and thoraco-lumbar ROM normal Extremity: COMMON NORMALS: normal to inspection, full ROM, capillary refill normal, no joint enlargement, no clubbing, cyanosis or edema and no calf tenderness Neuro: COMMON NORMALS: patient oriented x3, CN's II-XII intact bilaterally, moves all extremities, no focal motor deficits and no sensory deficits noted MENINGEAL SIGNS: Yes no meningeal signs SPEECH: speech normal Psych: COMMON NORMALS: mental status grossly normal, Normal thought process present, cooperative, normal affect, speech normal and activity/motor behavior normal APPEARANCE: Yes well kempt SPEECH: Yes normal speech THOUGHT PROCESS: Normal thought process present Skin: COMMON NORMALS: no rashes or lesions noted, turgor normal, no jaundice, no petechiae and no mottling GENERAL SKIN EXAM: no rashes or lesions noted and turgor normal Course Vital Signs: Vital signs: Vital Signs Temperature 98.9 F 10/19/19 00:54 Pulse Rate 78 10/19/19 03:22 Respiratory Rate 17 10/19/19 03:22 Blood Pressure 156/85 10/19/19 03:22 Pulse Oximetry 98 10/19/19 03:22 MDM - Female MDM Narrative: Medical decision making narrative: Amie comes in with appears to be a classic herpes type infestation/infection. Patient denies any other complaints at this time. Going to start her empirically on acyclovir as herpes cultures have been sent. Patient agrees to follow-up for definitive management and care. Lab Data: Labs: Lab Results 10/19/19 10/19/19 Range/Units 01:08 01:13 HCG, Qual Negative (Negative) Urine Color Yellow (Yellow) Urine Appearance Cloudy (CLEAR) Urine pH 5 (5-7) Ur Specific Gravit y 1.025 (1.005-1.030) Urine Protein Neg (Negative) Urine Glucose (UA) Norm (Normal) Urine Ketones Negative (Negative) Urine Blood 2+ H (Negative) Urine Nitrate Negative (Negative) Urine Bilirubin Neg (NEGATIVE) Urine Urobilinogen Norm (Negative) mg/dL Ur Leukocyte Libby ase 2+ H (Negative) Urine RBC 0-4 H (0-2) /hpf Urine WBC 25-40 H (0-5) /hpf Ur Squamous Epith Cells 25-40 H (0-5) Amorphous Sediment Not Reportable Urine Bacteria 1+ H (NONE) Urine Mucus 1+ Discharge Plan Discharge Patient Disposition: Home, Self-Care Clinical Impression: Genital herpes Qualifiers: Herpes simplex infection site: vulvovaginitis Qualified Code(s): A60.04 - Herpesviral vulvovaginitis Condition: Stable Prescriptions: New acyclovir 400 mg tablet 400 mg PO TID Qty: 30 RF: 0 [place] 5-325 mg tablet 1 tab PO Q6H PRN (Reason: pain) 5 Days Qty: 8 RF: 0 No Action Seroquel 100 mg tablet 100 mg PO BEDTIME Qty: 30 RF: 1 sertraline [Zoloft] 50 mg tablet 50 mg PO DAILY Qty: 30 RF: 1 zolpidem [Ambien] 5 mg tablet 5 mg PO BEDTIME Qty: 30 RF: 1 prazosin 2 mg capsule 2 mg PO BEDTIME Qty: 30 RF: 1 lithium carbonate 300 mg tablet extended release 600 mg PO BID Qty: 120 RF: 1 acetaminophen [Tylenol Extra Strength] 500 mg Tablet 1,000 mg PO PRN RF: 0 albuterol sulfate [ProAir HFA] 90 mcg/actuation Hfa Aerosol Inhaler 2 puff INHALATION Q4H PRN (Reason: Shortness Of Breath) RF: 0 pantoprazole 40 mg tablet,delayed release (DR/EC) 40 mg PO DAILY Qty: 30 RF: 8 Discharge Orders: Discharge Order (Routine); Ordered 10/19/19 Ordered By: Mayda Kaur Referrals: EVELYNE TOURE FNP [Primary Care Provider] - 7-10 days Suha oHrton MD [Physician] - 7-10 days Discharge Diet: Advance as tolerated Discharge Activity: Resume usual activity Patient Instructions: Genital Herpes - Female, Genital Herpes Simplex (ED) Activity Restrictions/Additional Instructions: Please return to the ER immediately for any of the signs or symptoms listed on your discharge instruction sheets, worsening/changing of your symptoms, you are not getting better as quickly as expected, or for ANY other cause or concerns. Be certain to follow-up with your doctor to get your test results as well as with Dr. Koch for further evaluation and care. 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
[2019-10-19 01:32] VITALS: BP 149/117; PULSE 106; RESP 17; O2SAT 99
[2019-10-19 02:09] LABS: Add Urine Microscopic? YES; Bacteria Urine 1+; Bilirubin Urine Neg (NEGATIVE); Blood Urine 2+ (Negative); Glucose Urine UA Norm (Normal); Ketones Urine Negative (Negative); Leukocyte Esterase Urine 2+ (Negative); Mucus Urine 1+; Nitrate Urine Negative (Negative); Protein Urine Neg (Negative); RBC Urine 0-4 /hpf (0-2); Specific Gravity, Urine 1.025 (1.005-1.030); Squamous Epithelial Cell Urine 25-40 (0-5); Urine Appearance Cloudy (CLEAR); Urine Color Yellow (Yellow); Urobilinogen Urine Norm (Negative); WBC Urine 25-40 /hpf (0-5); pH Urine 5 (5-7)
[2019-10-19 02:09] LABS: HCG Qualitative Urine. Negative (Negative)
[2019-10-19] MEDS: valACYclovir 1,000 mg Tablet 1000 MG PO (02:17)
[2019-10-19 03:19] VITALS: BP 145/91; PULSE 85; RESP 17; O2SAT 98
[2019-10-19 03:22] VITALS: BP 156/85; PULSE 78; RESP 17; O2SAT 98
--- NOTE | 2019-10-20 14:19 | DCPLANNER ---
assistant food service manager had message to schedule a follow up appointment for patient with [facility]. assistant food service manager made referral to [facility], a follow up appointment is scheduled for Friday, November 10, 2019 at 9:30. Clinic will call patient with appointment information.
[2019-10-27 10:15] LABS: HSV 1 DNA DETECTED; HSV 2 DNA NOT DETECTED
--- NOTE | 2019-11-19 13:08 | DCPLANNER ---
Patient had an appointment scheduled for 11.10.19 with [facility] - patient did not attend the appointment.
== END 2019-10-19 03:24 | disposition home or self-care (01) ==
PROVIDERS: Emergency Provider Emergency Medicine; PCP Nurse Practitioner Family
DX: A60.04 Herpesviral vulvovaginitis (principal); F17.210 Nicotine dependence, cigarettes, uncomplicated
CPT/HCPCS: 12345; 81001; 81003; 81025; 87086; 87210; 87530; 99283

== ENCOUNTER → 2019-12-03 08:24 | Outpatient (BNVA) | payer MEDICAID, SELFPAY | PROVIDERS: PCP Nurse Practitioner Family; Visit Provider Nurse Practitioner | DX: F31.71 Bipolar disorder, in partial remission, most recent episode hypomanic (principal) | CPT/HCPCS: 99213 ==

== ENCOUNTER → 2020-01-17 08:07 | Outpatient (BNVA) | payer MEDICAID, SELFPAY | PROVIDERS: PCP Nurse Practitioner Family; Visit Provider Nurse Practitioner | DX: F31.71 Bipolar disorder, in partial remission, most recent episode hypomanic (principal) | CPT/HCPCS: 99213 ==

== ENCOUNTER → 2020-02-25 07:49 | Outpatient (BNVA) | payer MEDICAID, SELFPAY | PROVIDERS: PCP Nurse Practitioner Family; Visit Provider Nurse Practitioner | DX: F31.71 Bipolar disorder, in partial remission, most recent episode hypomanic (principal) | CPT/HCPCS: 99213 ==

== ENCOUNTER → 2020-03-20 11:10 | Outpatient (BNVA) | payer MEDICAID, SELFPAY | PROVIDERS: PCP Nurse Practitioner Family; Visit Provider Obstetrics & Gynecology | DX: Z32.01 Encounter for pregnancy test, result positive (principal) | CPT/HCPCS: 81025; 84702 ==

== ENCOUNTER → 2020-03-21 15:09 | Outpatient (BNVA) | payer MEDICAID, SELFPAY | PROVIDERS: PCP Nurse Practitioner Family; Visit Provider Obstetrics & Gynecology | DX: R10.32 Left lower quadrant pain (principal) | CPT/HCPCS: 76830 ==

== ENCOUNTER → 2020-05-03 14:37 | Outpatient (BNVA) | payer MEDICAID, SELFPAY | PROVIDERS: PCP Nurse Practitioner Family; Visit Provider Nurse Practitioner Family | DX: Z20.2 Contact with and (suspected) exposure to infections with a predominantly sexual mode of transmission (principal); Z32.00 Encounter for pregnancy test, result unknown; Z68.31 Body mass index [BMI] 31.0-31.9, adult; F17.210 Nicotine dependence, cigarettes, uncomplicated | CPT/HCPCS: 81015; 81025; 87491; 87591; 87661 ==

== ENCOUNTER → 2020-05-05 09:21 | Outpatient (BNVA) | payer MEDICAID, SELFPAY | PROVIDERS: PCP Nurse Practitioner Family; Visit Provider Nurse Practitioner | DX: F31.81 Bipolar II disorder (principal) | CPT/HCPCS: 99214 ==

== ENCOUNTER → 2020-05-31 12:55 | Outpatient (BNVA) | payer MEDICAID, SELFPAY | PROVIDERS: PCP Nurse Practitioner Family; Visit Provider Obstetrics & Gynecology | DX: O20.9 Hemorrhage in early pregnancy, unspecified (principal) | CPT/HCPCS: 84702 ==

== ENCOUNTER 2020-06-30 18:28 | Emergency (ER) | payer MEDICAID, SELFPAY ==
[2020-06-30 18:31] VITALS: BP 160/101; PULSE 77; RESP 18; TEMP 36.8; O2SAT 100; BMI 32.1
--- NOTE | 2020-06-30 19:12 | ED_ITS ---
HPI - Abdominal Pain General: Chief Complaint: Abdominal Pain Stated Complaint: RUQ ABD PAIN Time Seen by Provider: 06/30/20 19:03 Source: patient Mode of arrival: ambulatory Limitations: no limitations History of Present Illness: HPI narrative: Patient is a 24-year-old female who presents to ED today with a complaint of right upper quadrant pain. Patient tells me she is had problems with her gallbladder previously and told at one point she needed a cholecystectomy. Patient states her pain began yesterday but worsened today while at work. She has not had any episodes of vomiting. She has had several episodes of nonbloody diarrhea. She is not complaining of fevers. Patient has a history of IBS and gastritis. She is supposed to be taking omeprazole but has not been. Patient also has a history of elevated LFTs. She has a hx of chronic alcohol use but states she has been doing better about this however states last night she drank three shots. MD elicited complaint: abdominal pain Pertinent past history: other (IBS/gastritis) Onset (ago): day(s) (yesterday) Pain Consistency: constant Location: RUQ Severity: moderate Quality: cramping and sharp Radiation: none Migration to: no migration Relieving factors: nothing Associated Symptoms: Reports diarrhea; Denies chills, dysuria, fever(s), hematochezia, melena, nausea and vomiting Related Data: Date of Last Menstrual Period: 06/28/20 Patient : No Review of Systems Const: Denies: fever(s) or chills Card: Denies: chest pain Resp: Denies: dyspnea GI: Reports: abdominal pain and diarrhea; Denies: nausea, vomiting, pain on defecation, rectal pain, hematochezia or melena : Reports: other; Denies: flank pain, dysuria, vaginal odor or pelvic pain Musc: Denies: neck pain or back pain Skin/Breast: Denies: rash Neuro: Denies: headache(s) PFSH ED PFSH: Medical History (Updated 06/30/20 @ 21:46 by TAJ Hutchison) Bipolar 2 disorder Bipolar disorder, in partial remission, most recent episode hypomanic Generalized postprandial abdominal pain Hematochezia Hemorrhage following tonsillectomy and adenoidectomy Surgical History (Updated 01/31/20 @ 13:21 by Rylee Nash RN) History of tonsillectomy Family History (Updated 01/31/20 @ 13:23 by Rylee Nash RN) Grandmother No problems noted. Grandfather Diabetes paternal Heart disease paternal Hyperlipidemia paternal Stroke paternal Colon cancer paternal Mother Hypertension Family/Other Thyroid condition maternal aunt Denies family history of Ovarian cancer Clotting disorder Breast cancer Anesthesia complication Bleeding disorder Uterine cancer Social History (Updated 01/31/20 @ 13:24 by Rylee Nash RN) Smoking and tobacco status: current every day smoker cigarettes Packs smoked per day: 1.5 Alcohol intake: current Alcohol intake frequency: holidays/special occasions only Alcohol type: hard liquor Adopted: No Marital status: Single service: No History of recent travel: No Female Reproductive History: Date of last menstrual period: 06/28/20 Physical Exam Const: COMMON NORMALS: no acute distress, patient oriented x3, no limitations and alert GENERAL APPEARANCE: cooperative NUTRITIONAL APPEARANCE: obese ORIENTATION/CONSCIOUSNESS: Yes awake, Yes oriented to person, Yes oriented to place and Yes oriented to time HENMT: COMMON NORMALS: normocephalic and atraumatic HEAD & SCALP: normocephalic and atraumatic Resp: COMMON NORMALS: normal respiratory effort and clear to auscultation bilaterally AUSCULTATION: clear to auscultation bilaterally Cardio: COMMON NORMALS: regular rate and regular rhythm RATE: regular rate RHYTHM: regular rhythm GI: COMMON NORMALS: Normal to inspection, nondistended, normoactive bowel sounds present, Soft to palpation, No hepatosplenomegaly present and no masses PALPATION: Yes Soft to palpation, Yes Tenderness to palpation present (GI) Details: RUQ and Yes No hepatosplenomegaly present : COMMON NORMALS: Yes no CVA tenderness BLADDER/KIDNEY EXAM: Yes no CVA tenderness Back/Pelvis: COMMON NORMALS: no CVA tenderness Neuro: COMMON NORMALS: patient oriented x3 SENSORIUM/ORIENTATION: Yes alert, Yes oriented to person, Yes oriented to place and Yes oriented to time Skin: COMMON NORMALS: no rashes or lesions noted GENERAL SKIN EXAM: no rashes or lesions noted Course ED course: Patients clean cath urine sample contains contaminates and a large amount of blood. She is currently on her menstrual cycle. Recommend cath specimen but patient adamantly refuses. Vital Signs: Vital signs: Vital Signs Temperature 98.3 F 06/30/20 18:31 Pulse Rate 77 06/30/20 18:31 Respiratory Rate 18 06/30/20 18:31 Blood Pressure 160/101 06/30/20 18:31 Pulse Oximetry 100 06/30/20 18:31 MDM - Abdominal Pain MDM Narrative: Medical decision making narrative: Patient clinically is in no acute distress. Her vital signs are stable. Her labs at this time are non- concerning. UA is contaminated but she refused a cath specimen. Ultrasound of her gallbladder showed no convincing evidence for cholecystitis. We will get patient set up with general surgery for further evaluation. Return to ED precautions given. Lab Data: Labs: Lab Results 06/30/20 06/30/20 06/30/20 Range/Units 19:08 19:08 19:08 WBC 9.8 (4.0-10.0) 10^3/ uL RBC 5.24 (4.1-5.3) 10^6/u L Hgb 15.5 H (11.5-15.3) g/dL Hct 47.3 H (37.0-47.0) % MCV 90.3 (81-99) fL MCH 29.6 (28.0-34.0) pg MCHC 32.8 (30.0-36.0) g/dL RDW 12.4 (12.1-15.1) % Plt Count 272 (130-400) 10^3/c mm MPV 10.4 (7.4-10.4) fL Neut % (Auto) 59.2 % Lymph % (Auto) 29.5 % [place] % (Auto) 9.1 % Eos % (Auto) 1.3 % Baso % (Auto) 0.4 % Neut # (Auto) 5.76 (1.8-7.7) 10^3/u L Lymph # (Auto) 2.9 (0.8-4.8) 10^3/u L [place] # (Auto) 0.9 (0.2-0.9) 10^3/u L Eos # (Auto) 0.1 (0.0-0.8) 10^3/u L Baso # (Auto) 0.0 (0.0-0.1) 10^3/u L Nucleated RBC % (a uto) 0 % Nucleated RBCs # 0.0 /100WBC Sodium 137 (136-145) mmol/L Potassium 3.5 (3.5-5.1) mmol/L Chloride 102 (98-107) mmol/L Carbon Dioxide 26 (22-29) mmol/L Anion Gap 12.5 (5-19) BUN 10 (6-20) mg/dL Creatinine 0.6 (0.5-0.9) mg/dL GFR Calculation 125.0 (90-130) mL/min Glucose 75 (65-115) mg/dL Calculated Osmolal ity 282 L (285-295) mOsm/k g Calcium 8.5 (8.5-10.5) mg/dL Total Bilirubin 0.3 (0.15-1.2) mg/dL AST 18 (0-32) U/L ALT 25 (0-33) U/L Alkaline Phosphata se 51 (35-105) IU/L Total Protein 7.4 (6.6-8.7) g/dL Albumin 4.4 (3.5-5.2) g/dL Globulin 3.0 (1.3-4.6) g/dL Lipase 16 (13-60) U/L HCG, Qual Negative (Negative) Urine Color (Yellow) Urine Appearance (CLEAR) Urine pH (5-7) Ur Specific Gravit y (1.005-1.030) Urine Protein (Negative) Urine Glucose (UA) (Normal) Urine Ketones (Negative) Urine Blood (Negative) Urine Nitrate (Negative) Urine Bilirubin (Negative) Urine Urobilinogen (Negative) mg/dL Ur Leukocyte Libby ase (Negative) Urine RBC (0-2) /hpf Urine WBC (0-5) /hpf Ur Squamous Epith Cells (0-5) /hpf Amorphous Sediment Urine Bacteria (NONE) /hpf 06/30/ Range/Units 19:12 WBC (4.0-10.0) 10^3/ uL RBC (4.1-5.3) 10^6/u L Hgb (11.5-15.3) g/dL Hct (37.0-47.0) % MCV (81-99) fL MCH (28.0-34.0) pg MCHC (30.0-36.0) g/dL RDW (12.1-15.1) % Plt Count (130-400) 10^3/c mm MPV (7.4-10.4) fL Neut % (Auto) % Lymph % (Auto) % [place] % (Auto) % Eos % (Auto) % Baso % (Auto) % Neut # (Auto) (1.8-7.7) 10^3/u L Lymph # (Auto) (0.8-4.8) 10^3/u L [place] # (Auto) (0.2-0.9) 10^3/u L Eos # (Auto) (0.0-0.8) 10^3/u L Baso # (Auto) (0.0-0.1) 10^3/u L Nucleated RBC % (a uto) % Nucleated RBCs # /100WBC Sodium (136-145) mmol/L Potassium (3.5-5.1) mmol/L Chloride (98-107) mmol/L Carbon Dioxide (22-29) mmol/L Anion Gap (5-19) BUN (6-20) mg/dL Creatinine (0.5-0.9) mg/dL GFR Calculation (90-130) mL/min Glucose (65-115) mg/dL Calculated Osmolal ity (285-295) mOsm/k g Calcium (8.5-10.5) mg/dL Total Bilirubin (0.15-1.2) mg/dL AST (0-32) U/L ALT (0-33) U/L Alkaline Phosphata se (35-105) IU/L Total Protein (6.6-8.7) g/dL Albumin (3.5-5.2) g/dL Globulin (1.3-4.6) g/dL Lipase (13-60) U/L HCG, Qual (Negative) Urine Color Yellow (Yellow) Urine Appearance Clear (CLEAR) Urine pH 5 (5-7) Ur Specific Gravit y 1.015 (1.005-1.030) Urine Protein Neg (Negative) Urine Glucose (UA) Norm (Normal) Urine Ketones Negative (Negative) Urine Blood 3+ H (Negative) Urine Nitrate Negative (Negative) Urine Bilirubin Neg (Negative) Urine Urobilinogen Norm (Negative) mg/dL Ur Leukocyte Libby ase Negative (Negative) Urine RBC 15-25 H (0-2) /hpf Urine WBC 5-10 H (0-5) /hpf Ur Squamous Epith Cells 10-15 H (0-5) /hpf Amorphous Sediment Not Reportable Urine Bacteria 1+ H (NONE) /hpf Imaging Data ^: US gallbladder: Radiologist's impression: [employer] [address] Ultrasound Report Signed Patient: Amie Aguilar #: [id number] : 1995Acct#:[id number] Age/Sex: 24 / FADM Date: 06/30/20 Loc: ERRoom/Bed: Attending Dr: Ordering Provider/Ordering MD: Yue Catherine Date of Service: 06/30/20 Procedure(s): US gall bladder 20554 Accession Number(s): [id number] Report Number: [id number] PROCEDURE INFORMATION: Exam: US Abdomen, Limited; Right Upper Quadrant Exam date and time: 06/30/2020 8:37 PM Age: 24 years old Clinical indication: Abdominal pain; Patient HX: Per PT h/o gb problems; Additional info: Ruq pain TECHNIQUE: Imaging protocol: US abdomen. Real time ultrasound with image documentation. Limited exam focused on the right upper quadrant. COMPARISON: CT abdomen pelvis w con* [id number] 09/09/2019 6:16 PM FINDINGS: Liver: Normal. No masses. Gallbladder: Gallbladder is fairly contracted at the time of imaging. Some of the images show echogenic shadowing near the superior margin of the gallbladder. This is of uncertain significance. Possibly adjacent bowel loop but echogenic shadowing stones are not confidently excluded. Common bile duct: Biliary system is nondilated. Common bile duct is not clearly seen secondary to poor acoustic windows, however no evidence of dilation. Pancreas: Visualized pancreas is unremarkable. Right kidney: Normal. No mass. No hydronephrosis. US/US gall bladder [id number] IMPRESSION: 1. Difficult scan secondary to body habitus and poor acoustic windows. 2. No convincing ultrasound evidence of acute right upper quadrant abdomen abnormality. 3. Contracted gallbladder possibly demonstrating echogenic shadowing stones versus adjacent bowel loop. 4. If there is high clinical suspicion of acute cholecystitis, recommend HIDA scan. Dictated By:Otilio Arce Signed By:Kinza Arce Date/Time:06/30/202138 DD/ 36 Discharge Plan Discharge Patient Disposition: Home Clinical Impression: Right upper quadrant abdominal pain Condition: Stable Prescriptions: No Action acyclovir 400 mg tablet 800 mg PO DAILY Qty: 180 RF: 3 zolpidem [Ambien] 5 mg tablet 5 mg PO BEDTIME Qty: 30 RF: 0 sertraline [Zoloft] 50 mg tablet 50 mg PO DAILY Qty: 30 RF: 0 Seroquel 100 mg tablet 100 mg PO BEDTIME Qty: 30 RF: 0 prazosin 2 mg capsule 2 mg PO BEDTIME Qty: 30 RF: 0 lithium carbonate 300 mg tablet extended release 600 mg PO BID Qty: 120 RF: 0 acetaminophen [Tylenol Extra Strength] 500 mg Tablet 1,000 mg PO PRN RF: 0 albuterol sulfate [ProAir HFA] 90 mcg/actuation Hfa Aerosol Inhaler 2 puff INHALATION Q4H PRN (Reason: Shortness Of Breath) RF: 0 Discharge Orders: Discharge ED (Routine); Ordered 06/30/20 Ordered By: Yue Catherine Referrals: Danielle Hansen FNP [Primary Care Provider] - Patient Instructions: Abdominal Pain (ED) Activity Restrictions/Additional Instructions: As discussed case management should contact you early next week to set you up with an appointment for general surgery consultation for evaluation of your right upper quadrant pain. He may return to the emergency department for worsening or severe pain, repetitive episodes of diarrhea or vomiting, blood in your vomit or diarrhea, fevers, or any other concerns you may have. Coding Level of Care Code ED Pillowcase Folder for Jarret Fwpriya Exam Detailed
[2020-06-30 19:24] LABS: Basophils % 0.4 %; Eosinophils # 0.1 10^3/uL (0.0-0.8); Eosinophils % 1.3 %; Hematocrit 47.3 % (37.0-47.0); Hemoglobin 15.5 g/dL (11.5-15.3); Lymphocytes # 2.9 10^3/uL (0.8-4.8); Lymphocytes % 29.5 %; Mean Corpuscular HGB Conc 32.8 g/dL (30.0-36.0); Mean Corpuscular Hemoglobin 29.6 pg (28.0-34.0); Mean Corpuscular Volume 90.3 fL (81-99); Mean Platelet Volume 10.4 fL (7.4-10.4); Monocytes # 0.9 10^3/uL (0.2-0.9); Monocytes % 9.1 %; Neutrophils # 5.76 10^3/uL (1.8-7.7); Neutrophils % 59.2 %; Nucleated Red Blood Cells % 0 %; Platelet Count 272 10^3/cmm (130-400); Red Blood Count 5.24 10^6/uL (4.1-5.3); Red Cell Distribution Width 12.4 % (12.1-15.1); White Blood Count 9.8 10^3/uL (4.0-10.0)
[2020-06-30 19:27] LABS: HCG, Serum Qual Negative (Negative)
[2020-06-30 19:48] LABS: Add Urine Microscopic? YES; Bacteria Urine 1+ /hpf; Bilirubin Urine Neg (Negative); Blood Urine 3+ (Negative); Glucose Urine UA Norm (Normal); Ketones Urine Negative (Negative); Leukocyte Esterase Urine Negative (Negative); Nitrate Urine Negative (Negative); Protein Urine Neg (Negative); RBC Urine 15-25 /hpf (0-2); Specific Gravity, Urine 1.015 (1.005-1.030); Urine Appearance Clear (CLEAR); Urine Color Yellow (Yellow); Urobilinogen Urine Norm (Negative); pH Urine 5 (5-7)
[2020-06-30 20:04] LABS: Alanine Aminotransferase 25 U/L (0-33); Albumin Level 4.4 g/dL (3.5-5.2); Alkaline Phosphatase 51 IU/L (35-105); Anion Gap 12.5 (5-19); Aspartate Amino Transferase 18 U/L (0-32); Blood Urea Nitrogen 10 mg/dL (6-20); Calcium 8.5 mg/dL (8.5-10.5); Carbon Dioxide 26 mmol/L (22-29); Chloride 102 mmol/L (98-107); Glucose 75 mg/dL (65-115); Lipase 16 U/L (13-60); Osmolality Calculated 282 mOsm/kg (285-295); Potassium 3.5 mmol/L (3.5-5.1); Sodium 137 mmol/L (136-145); Total Bilirubin 0.3 mg/dL (0.15-1.2); Total Protein 7.4 g/dL (6.6-8.7)
--- NOTE | 2020-07-03 08:21 | DCPLANNER ---
residential property manager had message to schedule a follow up appointment for patient with general surgery. residential property manager emailed patients information to both Damaris and Brie at [facility] General Surgery. Patients information will be printed and reviewed. Clinic will call patient with appointment information.
--- NOTE | 2020-07-06 07:54 | DCPLANNER ---
Patient has a follow up appointment scheduled for Saturday, July 25, 2020 at 1:[address] Smith at [facility] General Surgery. Clinic will call patient with appointment information.
--- NOTE | 2020-08-02 10:26 | DCPLANNER ---
Patients appointment scheduled for 07.25.20 was rescheduled for 08.11.[address] Smith at general surgery.
--- NOTE | 2020-09-01 11:07 | DCPLANNER ---
Patient had an appointment scheduled for 08.11.20 - appointment was cancelled.
== END 2020-06-30 21:56 | disposition home or self-care (01) ==
PROVIDERS: Emergency Provider Physician Assistant; PCP Nurse Practitioner Family
DX: R10.11 Right upper quadrant pain (principal); F17.210 Nicotine dependence, cigarettes, uncomplicated
CPT/HCPCS: 76705; 80053; 81001; 83690; 84703; 85025; 99283

== ENCOUNTER 2020-07-18 12:53 | Outpatient (CLI) | payer MEDICAID, SELFPAY ==
--- NOTE | 2020-07-18 12:58 | XRR_ITS ---
PROCEDURE INFORMATION: Exam: XR Chest Exam date and time: 07/18/2020 1:08 PM Age: 25 years old Clinical indication: Cough and dyspnea; Chest pain; Type not specified; Patient HX: PT has new nipple piercings and refused to elvira; Additional info: Tobacco dependence/dyspnea/bronchitis TECHNIQUE: Imaging protocol: XR of the chest. Views: 2 views. COMPARISON: CR XR chest 2V* [id number] 08/03/2019 2:06 PM FINDINGS: Lungs: Retrocardiac paravertebral parenchymal density is seen in the left lower lobe consistent with pneumonia. This finding was not seen on prior examination. Pleural spaces: Unremarkable. No pleural effusion. No pneumothorax. Heart/Mediastinum: Unremarkable. No cardiomegaly. Bones/joints: Unremarkable. Incidentally noted is metallic nipple rings. XR/XR chest 2V* [id number] IMPRESSION: Retrocardiac paravertebral left lower lobe pneumonia.
== END 2020-07-18 12:54 | disposition home or self-care (01) ==
LOC: RAD 12:55
PROVIDERS: PCP Nurse Practitioner Family; Visit Provider Nurse Practitioner Family
DX: F17.200 Nicotine dependence, unspecified, uncomplicated (principal); R06.00 Dyspnea, unspecified; J40 Bronchitis, not specified as acute or chronic; J18.8 Other pneumonia, unspecified organism
CPT/HCPCS: 71046

== ENCOUNTER → 2020-07-27 13:53 | Outpatient (BNVA) | payer MEDICAID, SELFPAY | PROVIDERS: PCP Nurse Practitioner Family; Visit Provider Nurse Practitioner | DX: F31.81 Bipolar II disorder (principal); F43.12 Post-traumatic stress disorder, chronic | CPT/HCPCS: 99214 ==

== ENCOUNTER 2020-08-18 14:13 | Emergency (ER) | payer MEDICAID, SELFPAY ==
[2020-08-18 14:46] VITALS: BP 133/85; PULSE 70; RESP 17; TEMP 36.8; O2SAT 99; BMI 31.8
--- NOTE | 2020-08-18 15:25 | US_ITS ---
WS: [id number] RIGHT UPPER QUADRANT ULTRASOUND HISTORY: RUQ pain COMPARISON: 06/30/2020 Liver: 18.2 cm in length. Moderately enlarged liver. Mild coarsened echotexture with no mass. No bile duct dilatation. Gallbladder: Gallbladder is not identified. There is shadowing from the region of the gallbladder fos sa which may be a stone filled gallbladder which is contracted. Stone filled gallbladder was evident on a prior ultrasound from 06/30/2020. CBD: 0.3 cm Pancreas: Not visualized. Right kidney: 13.4 cm in length. Normal size and echogenicity. No hydronephrosis or mass. Aorta and IVC: Not well visualized. No ascites. US/US gall bladder [id number] IMPRESSION: 1. Gallbladder is not identified today. There is shadowing from the region of the gallbladder fossa. Suspect this is most likely a contracted gallbladder wit h stones. A gallbladder with stones was identified on 06/30/2020 at the gallblad yue fossa. 2. No bile duct dilatation. 3. Hepatic steatosis and hepatomegaly.
--- NOTE | 2020-08-18 15:28 | ED_ITS ---
HPI - Abdominal Pain General: Chief Complaint: Abdominal Pain Stated Complaint: Gallbladder Attack Time Seen by Provider: 08/18/20 15:25 History of Present Illness: HPI narrative: Patient complain about right upper quadrant pain pretty severe today. Says she ate a [employer] and go straight to bathroom afterwards and had a greasy stool. Patient said she has appointment Dr. Nava office next week to have her gallbladder evaluated. Last gallbladder evaluation did not show anything. MD elicited complaint: abdominal pain Onset (ago): hour(s) Pain Consistency: intermittent Location: RUQ Severity: moderate Associated Symptoms: Reports no associated symptoms, heartburn and nausea; Denies chills, fever(s) and vomiting Related Data: Date of Last Menstrual Period: 07/30/20 Review of Systems Const: Denies: fever(s), chills or body aches Eyes: Denies: change in vision or blurry vision ENMT: Denies: throat pain or nasal congestion Card: Denies: chest pain or dyspnea on exertion Resp: Denies: dyspnea, productive cough or non-productive cough GI: Reports: abdominal pain (Pain radiates from right upper quadrant into the right shoulder), nausea and heartburn; Denies: vomiting Musc: Denies: extremity pain Skin/Breast: Denies: rash Neuro: Denies: headache(s) Psych: Denies: anxiety or depression Jeffrey/Lymph: Denies: easy bruising PFSH ED PFSH: Medical History (Updated 08/18/20 @ 16:15 by FERNANDO Aguilar) Bipolar 2 disorder Bipolar disorder, in partial remission, most recent episode hypomanic Generalized postprandial abdominal pain Hematochezia Hemorrhage following tonsillectomy and adenoidectomy Post-traumatic stress disorder, chronic Surgical History History of tonsillectomy Family History (Updated 01/31/20 @ 13:23 by Rylee Nash RN) Grandmother No problems noted. Grandfather Diabetes paternal Heart disease paternal Hyperlipidemia paternal Stroke paternal Colon cancer paternal Mother Hypertension Family/Other Thyroid condition maternal aunt Denies family history of Ovarian cancer Clotting disorder Breast cancer Anesthesia complication Bleeding disorder Uterine cancer Social History Smoking and tobacco status: current every day smoker cigarettes Packs smoked per day: 1.5 Alcohol intake: current Alcohol intake frequency: holidays/special occasions only Alcohol type: hard liquor Adopted: No Marital status: Single service: No History of recent travel: No Female Reproductive History: Date of last menstrual period: 07/30/20 Physical Exam Const: COMMON NORMALS: no acute distress, average body habitus and patient oriented x3 HENMT: COMMON NORMALS: normocephalic HEAD & SCALP: normal to inspection and normocephalic FACE & SINUS: normal facial exam Eye: COMMON NORMALS: conjunctivae normal GENERAL EYE: appearance normal, both eyes and all related structures CONJUNCTIVA: Yes conjunctivae normal Neck/C-Spine: COMMON NORMALS: no JVD Chest: COMMONS NORMALS: normal inspection of the chest Resp: COMMON NORMALS: normal respiratory effort and clear to auscultation bilaterally AUSCULTATION: clear to auscultation bilaterally Cardio: COMMON NORMALS: no JVD, regular rate and regular rhythm RATE: regular rate RHYTHM: regular rhythm GI: COMMON NORMALS: Normal to inspection, nondistended, normoactive bowel sounds present AUSCULTATION: Yes normoactive bowel sounds PALPATION: Yes Tenderness to palpation present (GI) Details: RUQ Extremity: COMMON NORMALS: normal to inspection and full ROM Neuro: COMMON NORMALS: patient oriented x3 Course Vital Signs: Vital signs: Vital Signs Temperature 98.2 F 08/18/20 14:46 Pulse Rate 70 08/18/20 14:46 Respiratory Rate 17 08/18/20 14:46 Blood Pressure 133/85 08/18/20 14:46 Pulse Oximetry 99 08/18/20 14:46 MDM - Abdominal Pain MDM Narrative: Medical decision making narrative: Nurse went in to draw blood after ultrasound was done and patient had already left. I did instruct her were going to lab work after ultrasound was done told her that the ultrasound would have to wait radiologist report. Apparently she left after this without consulting anybody. Discharge Plan Discharge Patient Disposition: Left Against Medical Advice Clinical Impression: Abdominal pain Qualifiers: Abdominal location: right upper quadrant Qualified Code(s): R10.11 - Right upper quadrant pain Condition: Stable Prescriptions: No Action acyclovir 400 mg tablet 800 mg PO DAILY Qty: 180 RF: 3 prazosin 2 mg capsule 2 mg PO BEDTIME Qty: 30 RF: 0 Seroquel 100 mg tablet 100 mg PO BEDTIME Qty: 30 RF: 0 zolpidem [Ambien] 5 mg tablet 5 mg PO BEDTIME Qty: 30 RF: 0 acetaminophen [Tylenol Extra Strength] 500 mg Tablet 1,000 - 1,500 mg PO PRN RF: 0 albuterol sulfate [ProAir HFA] 90 mcg/actuation Hfa Aerosol Inhaler 2 puff INHALATION Q6H PRN (Reason: Shortness Of Breath) RF: 0 Lamictal 25 mg tablet 25 mg PO BID RF: 0 Zoloft 50 mg tablet 50 mg PO QAM RF: 0 Discharge Orders: Discharge ED (Routine); Ordered 08/18/20 Ordered By: Atif Arias Referrals: Danielle Hansen, [employer] [Primary Care Provider] - Patient Instructions: Abdominal Pain (ED) Coding Level of Care Code ED Dietitian Teaching for Chg Fwd Exam Comprehensive
== END 2020-08-18 16:21 | disposition left against medical advice (07) ==
PROVIDERS: Emergency Provider Nurse Practitioner Family; PCP Nurse Practitioner Family
DX: R10.11 Right upper quadrant pain (principal); Z53.21 Procedure and treatment not carried out due to patient leaving prior to being seen by health care provider; F17.210 Nicotine dependence, cigarettes, uncomplicated
CPT/HCPCS: 76705

== ENCOUNTER → 2020-09-13 07:51 | Outpatient (BNVA) | payer MEDICAID, SELFPAY | PROVIDERS: PCP Nurse Practitioner Family; Visit Provider Nurse Practitioner | DX: F31.81 Bipolar II disorder (principal); F43.12 Post-traumatic stress disorder, chronic | CPT/HCPCS: 99214 ==

== ENCOUNTER 2020-09-14 09:41 | Outpatient (CLI) | payer MEDICAID, SELFPAY ==
--- NOTE | 2020-09-14 10:00 | NM_ITS ---
WS: [id number] NUCLEAR MEDICINE HIDA SCAN WITH GALLBLADDER EJECTION FRACTION HISTORY: R10.11 - Right upper quadrant pain COMPARISON: 08/18/2020 gallbladder ultrasound TECHNIQUE: The patient was intravenously injected with 5.2 mCi of TC99m Mebrofenin. Immediate imaging over the right upper quadrant was followed by 5 minute image and additional images for a total of 60 minutes. Normal uptake of radiotracer throughout the liver. Activity identified in the gallbladder at 10 minutes and only slightly distended by 60 minutes. Activity in the proximal small bowel was seen by 10 minutes. Good washout of the radiotracer from the liver by 60 minutes. The patient then drank 8 ounces of Ensure Plus. Ejection fraction at 60 minutes was 42%. Normal GB ej ection fraction is 35-75%. Post fatty meal symptoms: Mild nausea. NM/NM hepatobiliary w phar* [id number] IMPRESSION: 1. Normal HIDA scan. 2. Low normal ejection fraction.
== END 2020-09-14 09:42 | disposition home or self-care (01) ==
LOC: RAD 09:43
PROVIDERS: PCP Nurse Practitioner Family; Visit Provider Surgery
DX: R10.11 Right upper quadrant pain (principal)
CPT/HCPCS: 78227; A9537

== ENCOUNTER → 2020-09-20 12:40 | Outpatient (BNVA) | payer MEDICAID, SELFPAY | PROVIDERS: PCP Nurse Practitioner Family; Visit Provider Surgery | DX: R10.84 Generalized abdominal pain (principal); Z20.822 Contact with and (suspected) exposure to COVID-19 | CPT/HCPCS: 87635 ==

== ENCOUNTER 2020-09-25 06:32 | Day surgery (SDC) | payer MEDICAID, SELFPAY ==
[2020-09-22 13:39] VITALS: BMI 33.2
[2020-09-25] VITALS (10 sets, daily range): BP systolic 103–163; BP diastolic 64–98; PULSE 54–80; RESP 14–28; TEMP 36.1–36.5; O2SAT 94–98
--- NOTE | 2020-09-25 07:55 | W.PM.OPSUD ---
Surgery/Procedure H&P Update DATE OF PROCEDURE: September 25, 2020 DATE H&P PERFORMED: 09/15/20 H&P UPDATE INFORMATION: I have reviewed H&P completed within last 30 days, I have examined patient prior to procedure and No changes to prior documentation PREOP DIAGNOSIS: Chronic cholecystitis PLANNED PROCEDURE: Operation Date: 09/25/20 08:00 Proposed Procedures p Lap possible open cholecystectomy 14248 r10.11(Not Applicable) - Bonilla Smith MD
[2020-09-25 08:14] LABS: OR HCG Qualitative Urine Negative (Negative)
--- NOTE | 2020-09-25 08:19 | ANES.PREANE2 ---
Pre-Anesthetic Assessment Pre-Anesthetic Assessment: Height/Weight: Height 1.83 m Weight 111.13 kg Temp Pulse Resp BP Pulse Ox 97.3 F L 64 18 103/85 98 09/25/20 06:53 09/25/20 06:53 09/25/20 06:53 09/25/20 06:53 09/25/20 06:53 Preop Diagnosis: Chronic cholecystitis Proposed Procedure: Operation Date: 09/25/20 08:00 Proposed Procedures p Lap possible open cholecystectomy 90072 r10.11(Not Applicable) - Bonilla Smith MD Familial anesthetic complications: None Was Beta Neva taken within 24 hours: N/A Was Clonidine taken within 24 hours: N/A Last intake: Intake Last Liquid Date 09/24/20 Last Liquid Time 21:00 Last Solid Date 09/24/20 Last Solid Time 21:00 Social: Social History: Tobacco and No alcohol Exam: Pre-Anes Outpt Exam: alert, oriented x 3 and regular rate & rhythm Additional Exam Findings (including area of procedure): B/L wheeze (L > R) Airway: Cervical ROM: WNL MP: 4 Dentition: Chipped Pulmonary: Pulmonary: Asthma GI: GI: GERD Anesthetic Plan: ASA status: 2 Anesthesia: General Risk of > 500 ml blood loss (7ml/kg in children): No PFSH Anesthesia PFSH: Medical History Bipolar 2 disorder Bipolar disorder, in partial remission, most recent episode hypomanic Gastritis Generalized postprandial abdominal pain Post-traumatic stress disorder, chronic Surgical History H/O oral surgery wisdom teeth History of colonoscopy 2020 History of esophagogastroduodenoscopy (EGD) History of tonsillectomy Family History Grandmother No problems noted. Grandfather Diabetes paternal Heart disease paternal Hyperlipidemia paternal Stroke paternal Colon cancer paternal Mother Hypertension Family/Other Thyroid condition maternal aunt Denies family history of Ovarian cancer Clotting disorder Breast cancer Anesthesia complication Bleeding disorder Uterine cancer Social History Smoking and tobacco status: current every day smoker cigarettes Packs smoked per day: 1.5 Alcohol intake: current Alcohol intake frequency: holidays/special occasions only Alcohol type: hard liquor Adopted: No Marital status: Single service: No History of recent travel: No Female Reproductive History: Date of last menstrual period: 08/31/20 Data Anesthesia Other Labs: Laboratory Results - last 48 hr 09/25/20 08:12 Urine HCG, Qual Negative Cardiac Studies: No Data to Display
[2020-09-25] MEDS: sodium chloride 0.9% 1,000 ML 30 ML IV (08:27)
--- NOTE | 2020-09-25 09:28 | PM.OP ---
Operative Report Date of procedure: September 25, 2020 Pre-op Diagnosis: Chronic cholecystitis Post-op diagnosis: same Procedure Done: Laparoscopic cholecystectomy Specimens removed/disposition: Gallbladder Surgeon: Bonilla Smith Anesthesia: General Estimated blood loss (mL): 5 Condition: stable Disposition: PACU Procedure: The patient was taken to the operating room and was intubated under general anesthesia. After the antibiotic had been administered, the abdomen was prepped and draped in a sterile manner. Using a #15 blade, a 1 centimeter infraumbilical curvilinear incision was made and using an open Lisa technique the peritoneal cavity was entered. A 10 millimeter port was placed and 15 millimeters of pneumoperitoneum was created. A 10 millimeter, 30 degrees scope was then introduced. Three 5 millimeter ports were placed in the epigastric, midclavicular and the anterior axillary line two fingerbreadths below the costal margin on the right side under the direct visualization. Ratcheted forceps were introduced into the lateral most port and was used to retract the fundus of the gallbladder cephalad and using forceps the infundibulum of the gallbladder was retracted laterally. Using L-hook cautery the peritoneum overlying the Calot's triangle was opened medially and laterally until the cystic duct and the cystic artery were skeletonized. Dissection was carried along the body of the gallbladder and after ensuring critical view of safety, 4 clips applied on the cystic duct and 3 clips applied on the cystic artery and cut leaving, 3 clips on the remaining portion of the duct and 2 clips on the remaining portion of the artery. The rest of the gallbladder was dissected off the liver using L-hook cautery. There was no bleeding or bile leaking noted from the gallbladder fossa and the clips appeared to be in place. An EndoCatch bag was introduced to remove the gallbladder. All the ports were removed under direct visualization and there was no bleeding noted from the port sites. The fascia of the umbilicus was closed using [id number] 0 Vicryl sutures and the subcutaneous tissue was approximated using 3-0 Vicryl sutures. The skin at all four ports were closed using 4-0 Monocryl and Dermabond. A total of 10 millimeters of 0.5% Marcaine was infiltrated around the port sites. The patient was stable throughout the procedure.
[2020-09-25] MEDS: ondansetron 2 mg/ML SDV 2 mL 4 MG IVP (09:49)
[2020-09-25] MEDS: fentaNYL 50 mcg/mL INJ 2mL IVP ×2 (09:51→09:56)
[2020-09-25] MEDS: metoclopramide 5 mg/mL SDV 2 mL 10 MG IVP ×2 (09:55→10:01)
[2020-09-25] MEDS: HYDROcodone-acetaminophen 5-325 mg Tablet 1 TAB PO (11:03)
--- NOTE | 2020-09-25 15:51 | ANE.PACU2 ---
Inpatient post-anesthesia follow up: Airway intact: Yes Vital signs: Temperature 97.7 F Pulse Rate 54 Respiratory Rate 16 Blood Pressure 126/64 Pulse Oximetry 97 Oxygen Delivery Me thod Room Air Oxygen Flow Rate Fraction of Inspir ed Oxygen Hydration adequate: Yes Nausea and vomiting: No Pain level: 3 Mental status: Baseline
== END 2020-09-25 12:35 | disposition home or self-care (01) ==
PROVIDERS: PCP Nurse Practitioner Family; Visit Provider Surgery
PROC: 0FT44ZZ Resection of Gallbladder, Percutaneous Endoscopic Approach (ICD-10-PCS; CPT 47562; principal; 2020-09-25 08:00)
DX: K80.10 Calculus of gallbladder with chronic cholecystitis without obstruction (principal); F17.210 Nicotine dependence, cigarettes, uncomplicated
CPT/HCPCS: 47562; 81025; 84703; 88304; 96365; J0690; J1100; J1885; J2405; J2704; J2710; J2765; J3010; J3490; J3535; J7030

== ENCOUNTER 2020-10-31 19:21 | Emergency (ER) | payer MEDICAID, SELFPAY ==
[2020-10-31 19:23] VITALS: BP 146/104; PULSE 119; RESP 20; TEMP 36.8; O2SAT 96; BMI 32.5
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
[2020-10-31 20:57] VITALS: BP 162/99; PULSE 100; RESP 16; O2SAT 98
== END 2020-10-31 20:58 | disposition home or self-care (01) ==
PROVIDERS: Emergency Provider Physician Assistant; PCP Nurse Practitioner Family
DX: S13.4XXA Sprain of ligaments of cervical spine, initial encounter (principal); S63.501A Unspecified sprain of right wrist, initial encounter; F17.210 Nicotine dependence, cigarettes, uncomplicated; V49.9XXA Car occupant (driver) (passenger) injured in unspecified traffic accident, initial encounter; Y92.411 Interstate highway as the place of occurrence of the external cause
CPT/HCPCS: 70450; 72125; 72128; 72131; 73110; 99283

== ENCOUNTER → 2020-11-20 07:32 | Outpatient (BNVA) | payer MEDICAID, SELFPAY | PROVIDERS: PCP Nurse Practitioner Family; Visit Provider Nurse Practitioner | DX: F43.12 Post-traumatic stress disorder, chronic (principal); F31.81 Bipolar II disorder | CPT/HCPCS: 99214 ==

== ENCOUNTER → 2021-02-13 08:31 | Outpatient (BNVA) | payer MEDICAID, SELFPAY | PROVIDERS: PCP Nurse Practitioner Family; Visit Provider Nurse Practitioner | DX: F43.12 Post-traumatic stress disorder, chronic (principal); F31.81 Bipolar II disorder; F31.71 Bipolar disorder, in partial remission, most recent episode hypomanic | CPT/HCPCS: 99214 ==

== ENCOUNTER 2021-03-11 16:12 | Emergency (ER) | payer MEDICAID, SELFPAY ==
[2021-03-11 16:21] VITALS: BP 151/103; PULSE 68; RESP 16; TEMP 36.8; O2SAT 99
--- NOTE | 2021-03-11 16:32 | W.ED.PREGNAN ---
HPI - General: Chief complaint: Vaginal Bleeding Stated complaint: 6 WKS , BLEEDING/CRAMPING Time Seen by Provider: 03/11/21 16:32 History of Present Illness: HPI Narrative: Ms. Aguilar is a 25-year-old lady with significant psychiatric history who presents to the emergency department due to abdominal cramping and spotting with clots during . Including this she is G2, P0 with a early sab approximately 1 year ago. Her last menstrual period was January 31. She had a positive home test on 03/07 and subsequently confirmatory test at [facility]. She has been at her baseline health without significant changes up until this morning. She has spontaneous onset of spotting which is progressed to more bleeding and passing clots. She has associated abdominal cramping in the lower abdomen and back. She reports that she typically has heavy periods and therefore relatively this is etl developer than it. But she feels like it is worsened. No other specific changes in health. No other specific exacerbating or relieving factors. No abdominal trauma. Date of Last Menstrual Period: 08/31/20 Review of Systems General: Reports: 10 or more systems reviewed and unremarkable except in HPI and below PFSH ED PFSH: Medical History Bipolar 2 disorder Bipolar disorder, in partial remission, most recent episode hypomanic Gastritis Post-traumatic stress disorder, chronic Psychiatric care Surgical History H/O oral surgery wisdom teeth History of colonoscopy 2020 History of esophagogastroduodenoscopy (EGD) History of tonsillectomy Status post laparoscopic cholecystectomy (09/25/20) Family History Grandmother No problems noted. Grandfather Diabetes paternal Heart disease paternal Hyperlipidemia paternal Stroke paternal Colon cancer paternal Mother Hypertension Family/Other Thyroid condition maternal aunt Denies family history of Ovarian cancer Clotting disorder Breast cancer Anesthesia complication Bleeding disorder Uterine cancer Social History Smoking and tobacco status: current every day smoker cigarettes Packs smoked per day: 1.5 Alcohol intake: current Alcohol intake frequency: holidays/special occasions only Alcohol type: hard liquor Adopted: No Marital status: Single service: No History of recent travel: No Female Reproductive History: Date of last menstrual period: 08/31/20 Physical Exam Narrative: EXAM NARRATIVE: GENERAL/CONSTITUTIONAL -well appearing. Mildly uncomfortable due to pain Eyes -no scleral icterus, no conjunctival injection ENMT - Atraumatic external nose and ears. Moist mucous membranes NECK - supple. trachea midline CARDIOVASCULAR - regular rate and rhythm. RESPIRATORY -clear to auscultation bilaterally. ABDOMEN/GI -mild tenderness without evidence of peritonitis in the suprapubic region MSK - Extremities without obvious deformity or tenderness to palpation SKIN - Warm, Dry NEURO - alert and appropriately oriented. Moves all extremities equally. PELVIC - performed with hog slaughterer present. Patient has history of HSV and is on daily oral suppressive medication, no external vesicular lesions or abnormality. Trace dark red blood in the vaginal vault without appreciable abnormality. Cervix is well identified and the os appears closed, more small slitlike horizontally oriented than expected for a nulparous woman, with mucoid discharge. No asymmetry or masses or color differences noted cervical inspection. Bimanual exam performed with right adnexal tenderness greater than midline or left. Course ED course: - Patient was seen and evaluated by me at bedside -Vital signs obtained - Initial evaluation notable for exam as noted above. - Labs notable for hCG 13.18. RBCs noted in urine - Based on adnexal tenderness on bimanual examination imaging is warranted . imaging notable for no evidence of intrauterine gestation. Adnexa are normal. - Upon serial reexamination after treatment the patient was similar - Based on patient history, evaluation, labs, and imaging as interpreted the most likely cause of the patient's condition is SAB versus failed - The results of ED evaluation were discussed with the patient including prescriptions and/or symptomatic cares (if applicable) including appropriate and responsible use, followup plan, and return precautions. I discussed need for follow-up for repeat hCG and ultrasound if clinically indicated as recommended by radiology. The patient verbalized understanding and felt safe for discharge. - Patient discharged in satisfactory condition. Vital Signs: Vital signs: Vital Signs Temperature 98.3 F 03/11/21 16:21 Pulse Rate 78 03/11/21 19:48 Respiratory Rate 18 03/11/21 19:48 Blood Pressure 138/78 03/11/21 19:48 Pulse Oximetry 99 03/11/21 19:48 MDM - OB/Uterine Contractions Medical Records: Attestation: I reviewed the patient's medical records. Lab Data: Attestation: I reviewed the patient's lab results. Labs: Lab Results 03/11/21 03/11/21 03/11/21 17:03 17:03 17:03 Ser , Gregory i-Qnt 13.18 mIU/mL mIU/ mL Urine Color Yellow (Yellow) Urine Appearance Sl hazy (CLEAR) Urine pH 5 (5-7) Ur Specific Gravit y 1.020 (1.005-1.030) Urine Protein Neg (Negative) Urine Glucose (UA) Norm (Normal) Urine Ketones Negative (Negative) Urine Blood 3+ H (Negative) Urine Nitrate Negative (Negative) Urine Bilirubin Neg (Negative) Urine Urobilinogen Norm mg/dL mg/dL (Negative) Ur Leukocyte Libby ase Negative (Negative) Urine RBC 80-100 /hpf H /hp f (0-2) Urine WBC Rare /hpf /hpf (0-5) Ur Squamous Epith Cells 0-4 /hpf H /hpf (0-5) Amorphous Sediment Not Reportable Urine Bacteria 1+ /hpf H /hpf (NONE) Urine Mucus 1+ /hpf /hpf Blood Type B Positive Rho(D) Type Positive Discharge Plan Discharge Patient Disposition: Home Clinical Impression: Vaginal bleeding, , Abdominal cramping Condition: Stable Prescriptions: No Action acyclovir 400 mg tablet 800 mg PO DAILY Qty: 180 RF: 3 hydrocodone-acetaminophen 5-325 mg tablet 1 tab PO Q6H PRN (Reason: pain) 42 Days Qty: 20 RF: 0 Zofran 4 mg tablet 4 mg PO Q6H PRN (Reason: nausea and vomiting) Qty: 20 RF: 0 pantoprazole 40 mg tablet,delayed release (DR/EC) 40 mg PO DAILY Qty: 30 RF: 2 zolpidem [Ambien] 5 mg tablet 5 mg PO BEDTIME Qty: 30 RF: 2 lamotrigine [Lamictal] 100 mg tablet 100 mg PO DAILY Qty: 30 RF: 2 prazosin 2 mg capsule 2 mg PO BEDTIME Qty: 30 RF: 2 Seroquel 100 mg tablet 100 mg PO BEDTIME Qty: 30 RF: 2 triamcinolone acetonide 0.1 % cream 1 applic topical DAILY 14 Days Qty: 30 RF: 0 acetaminophen [Tylenol Extra Strength] 500 mg Tablet 1,000 - 1,500 mg PO PRN RF: 0 albuterol sulfate [ProAir HFA] 90 mcg/actuation Hfa Aerosol Inhaler 2 puff INHALATION Q6H PRN (Reason: Shortness Of Breath) RF: 0 Colace 100 mg capsule 100 mg PO BID Qty: 30 RF: 0 Discharge Orders: Discharge ED (Routine); Ordered 03/11/21 Ordered By: Bayron Dudley Referrals: Danielle Hansen FNP [Primary Care Provider] - Discharge Diet: Usual diet Discharge Activity: Resume usual activity Activity Restrictions/Additional Instructions: Thank you for visiting the emergency department. You were seen and evaluated for vaginal bleeding and abdominal cramping in . As discussed, it is most likely that you have had a miscarriage however you do need further evaluation in the outpatient setting to confirm this. Your beta hCG was 13.18 which is only minimally elevated and lower than I would expect given your last menstrual period. No abnormalities including no findings of were found on your ultrasound. As discussed, given this beta-hCG level, a gestational sac or other evidence of would not be typically visible even on transvaginal ultrasound. Radiology recommends a follow-up ultrasound in 1 to 2 weeks. This should be discussed with your primary care provider/injection molding supervisor. I recommend repeat hCG in 2 days for trending purposes. Please return to the emergency department if you experience worsening symptoms, lightheadedness, dizziness, significant blood loss including soaking through more than 2 pads per hour, uncontrolled pain, or anything else that you are concerned about and feel needs emergency department evaluation. Coding Level of Care Code ED X [employer] Equipment Mechanic for Jarret Naidu
--- NOTE | 2021-03-11 17:24 | USR_ITS ---
PROCEDURE INFORMATION: Exam: US , Transvaginal Exam date and time: 03/11/2021 5:24 PM Age: 25 years old Clinical indication: Lmp or gestational age (in weeks): 5 weeks 4 days (by lmp); Other: Bleeding, right adnexal tenderness; Additional info: Bleeding early preg, R adnexal tenderness, R/O ectopic, lmp 01/31 TECHNIQUE: Imaging protocol: Real-time transvaginal obstetrical ultrasound of the maternal pelvis with image documentation. Transvaginal imaging was used for better evaluation of the fetus, adnexa, and/or cervix. COMPARISON: US transvaginal [id number] 03/21/2020 3:10 PM FINDINGS: Gestation: No evidence for an intrauterine gestation. Embryonic/ heart rate: See under Gestation . Placenta: See under Gestation . Amniotic fluid: See under Gestation . BIOMETRY: Gestational age (AUA): See under Gestation . MATERNAL: Uterus: The uterus is unremarkable. The uterus measures 5.5 x 2.7 x 2.9 cm. The endometrium is unremarkable. Endometrium measures 8.2 mm. Right ovary/adnexa: Few small follicles in the right ovary. The right ovary measures 2.6 x 1.5 x 2.5 cm with a volume of 5.0 ml. There is flow in the right ovary on Doppler imaging. No abnormal adnexal masses. Left ovary/adnexa: Few small follicles in the left ovary. The left ovary measures 2.3 x 1.6 x 1.7 cm with a volume of 3.5 ml. There is flow in the left ovary on Doppler imaging. No abnormal adnexal masses. Intraperitoneal space: No free fluid in the pelvis. US/US OB transvaginal [id number] IMPRESSION: 1. No evidence for an intrauterine gestation. This could be due to the early stage of of unknown location versus a prior spontaneous . Recommend clinical follow-up. Also recommend follow-up ultrasound in 1-2 weeks or sooner as clinically indicated. 2. No abnormal findings in the right or left adnexa. 3. Few small follicles in the right and left ovaries. Radiation Dose CTDIVOL = (mGy): DLP = (mGy-cm)
[2021-03-11 17:25] VITALS: BP 151/103; PULSE 68; RESP 16; O2SAT 99
[2021-03-11 17:28] LABS: HCG Quantitative 13.18 mIU/mL
[2021-03-11 18:01] LABS: Glucose Urine UA Norm (Normal); Ketones Urine Negative (Negative); Protein Urine Neg (Negative); Urine Appearance SL Hazy (CLEAR); Urine Color Yellow (Yellow); pH Urine 5 (5-7)
[2021-03-11 18:02] LABS: Add Urine Microscopic? YES; Bilirubin Urine Neg (Negative); Blood Urine 3+ (Negative); Leukocyte Esterase Urine Negative (Negative); Nitrate Urine Negative (Negative); Urobilinogen Urine Norm (Negative)
[2021-03-11 18:08] LABS: RBC Urine 80-100 /hpf (0-2); WBC Urine RARE /hpf (0-5)
[2021-03-11 18:09] LABS: Add Urine Culture? Yes; Bacteria Urine 1+ /hpf; Mucus Urine 1+ /hpf; Squamous Epithelial Cell Urine 0-4 /hpf (0-5)
[2021-03-11 19:48] VITALS: BP 138/78; PULSE 78; RESP 18; O2SAT 99
== END 2021-03-11 19:45 | disposition home or self-care (01) ==
PROVIDERS: Emergency Provider Emergency Medicine; PCP Nurse Practitioner Family
DX: O20.9 Hemorrhage in early pregnancy, unspecified (principal); O26.891 Other specified pregnancy related conditions, first trimester; R10.9 Unspecified abdominal pain; O99.331 Smoking (tobacco) complicating pregnancy, first trimester; F17.210 Nicotine dependence, cigarettes, uncomplicated; Z3A.01 Less than 8 weeks gestation of pregnancy
CPT/HCPCS: 76817; 81001; 84702; 86900; 87086; 87210; 99283; E0352

== ENCOUNTER → 2021-03-28 07:40 | Outpatient (BNVA) | payer MEDICAID, SELFPAY | PROVIDERS: PCP Nurse Practitioner Family; Visit Provider Nurse Practitioner | DX: F31.81 Bipolar II disorder (principal); F43.12 Post-traumatic stress disorder, chronic | CPT/HCPCS: 99214 ==

== ENCOUNTER 2021-06-29 15:44 | Emergency (ER) | payer MEDICAID, SELFPAY ==
[2021-06-29 15:52] VITALS: BP 175/125; PULSE 90; RESP 18; TEMP 37.1; O2SAT 99; BMI 31.1
--- NOTE | 2021-06-29 16:17 | CTR_ITS ---
PROCEDURE INFORMATION: Exam: CT Abdomen And Pelvis With Contrast Exam date and time: 06/29/2021 5:41 PM Age: 25 years old Clinical indication: Abdominal pain; Localized; Right lower quadrant (rlq); Prior surgery; Surgery date: 6+ months; Surgery type: Gb; Patient HX: C/O rlq abd pain w abn early period; Additional info: Right sided abdominal pain TECHNIQUE: Imaging protocol: Computed tomography of the abdomen and pelvis with contrast. Radiation optimization: All CT scans at this facility use at least one of these dose optimization techniques: automated exposure control; mA and/or kV adjustment per patient size (includes targeted exams where dose is matched to clinical indication); or iterative reconstruction. Contrast material: OMNI 300; Contrast volume: 95 ml; Contrast route: INTRAVENOUS (IV); COMPARISON: CT abdomen pelvis w con* [id number] 09/09/2019 6:16 PM RADIATION DOSE METRICS: Total DLP (mGy-cm): 1888.74 FINDINGS: Lungs: Lung bases are clear. Liver: The liver is normal. Gallbladder and bile ducts: The gallbladder is absent. There is no intrahepatic or extrahepatic bile duct dilation. Pancreas: The pancreas is unremarkable. Spleen: The spleen is unremarkable. Adrenal glands: The adrenal glands are unremarkable. Kidneys and ureters: The kidneys are unremarkable. No hydronephrosis or stones. No ureteral dilation. Stomach and bowel: There is luminal decompression in the ascending and proximal transverse colon limiting assessment of wall thickness. There is very subtle serosal surface edema throughout the ascending colon. The stomach is decompressed, preventing meaningful evaluation of wall thickness. The small bowel is nondilated. There is prominent mucosal enhancement and subtle mesenteric edema associated with small bowel in the deep pelvis. Appendix: The appendix is normal. Intraperitoneal space: Trace pelvic free fluid. There is no intraperitoneal free air. Vasculature: The aorta is unremarkable. There is no aneurysm. The portal, splenic and superior mesenteric veins are patent. Lymph nodes: There is no lymphadenopathy in the retroperitoneum, mesentery, pelvis or inguinal regions. Urinary bladder: The urinary bladder is decompressed, preventing meaningful evaluation of wall thickness. Reproductive: The uterus is unremarkable. There is no adnexal mass or large cyst. Bones/joints: Bones are unremarkable. Soft tissues: The abdominal wall is intact. CT/CT abdomen pelvis w con* [id number] IMPRESSION: 1. Suggestive findings of mild enterocolitis. No sign of obstruction. 2. Incidental findings above.
--- NOTE | 2021-06-29 16:49 | ED_ITS ---
Documented by User: Chandra Pino 06/29/21 17:15 HPI - Abdominal Pain General: Chief Complaint: Abdominal Pain Stated Complaint: severe pain/menstrual issues Time Seen by Provider: 06/29/21 16:00 History of Present Illness: 25-year-old female presents to the emergency department chief complaint of abdominal pain on the right side has been progressively worse for last 3 to 4 days she reports he felt food she felt a pop in her upper abdomen in which he proceeded to start bleeding on her cycle 3 days early she reports her last cycle was approximately a month ago reports she is sexually active reports potential concerns of being patient does report having a recent miscarriage in the past 2 months. The patient reports that she has some nausea and vomiting associate with her abdominal pain. She does report having a prior history of cholecystectomy reports a history of endometriosis in her family but reports she never been diagnosed with it. She does report that this cycle is currently she is bleeding more than normal but not considered excessive. She did report significant pain noted to the right side of her abdomen with radiation to the back she reports no blood in her urine reporting no other associated symptoms she does report having a pre-existing history of genital herpes that she has been treated for the past for. Patient does not report any recent flareups of that. Associated Symptoms: Reports GI cramping, nausea and vomiting; Denies chills and fever(s) Related Data: Date of Last Menstrual Period: 08/31/20 Review of Systems General: Reports: 10 or more systems reviewed and unremarkable except in HPI and below Const: Denies: fever(s), chills, fatigue or malaise Eyes: Denies: change in vision or blurry vision Card: Denies: chest pain or palpitations Resp: Denies: dyspnea or productive cough GI: Reports: abdominal pain, nausea, vomiting and GI cramping : Reports: flank pain, dysmenorrhea, irregular period and change in menstrual flow Musc: Denies: extremity pain or extremity swelling Skin/Breast: Denies: rash or pruritus Neuro: Denies: headache(s) Psych: Denies: anxiety or depression Jeffrey/Lymph: Denies: easy bleeding All/Imm: Denies: urticaria, throat swelling or facial swelling PFS ED PFSH: Medical History Bipolar 2 disorder Bipolar disorder, in partial remission, most recent episode hypomanic Gastritis Post-traumatic stress disorder, chronic Psychiatric care Surgical History H/O oral surgery wisdom teeth History of colonoscopy 2020 History of esophagogastroduodenoscopy (EGD) History of tonsillectomy Status post laparoscopic cholecystectomy (09/25/20) Family History Grandmother No problems noted. Grandfather Diabetes paternal Heart disease paternal Hyperlipidemia paternal Stroke paternal Colon cancer paternal Mother Hypertension Family/Other Thyroid condition maternal aunt Denies family history of Ovarian cancer Clotting disorder Breast cancer Anesthesia complication Bleeding disorder Uterine cancer Social History Smoking and tobacco status: current every day smoker cigarettes Packs smoked per day: 1.5 Alcohol intake: current Alcohol intake frequency: holidays/special occasions only Alcohol type: hard liquor Adopted: No Marital status: Single service: No History of recent travel: No Female Reproductive History: Date of last menstrual period: 08/31/20 Physical Exam Const: COMMON NORMALS: no acute distress, patient oriented x3, healthy appearing and alert (Patient appears nontoxic appears in no obvious acute distress appears in mi) HENMT: COMMON NORMALS: normocephalic and atraumatic HEAD & SCALP: normocephalic and atraumatic Eye: COMMON NORMALS: Equal, round and reactive pupils present and EOMs intact bilaterally PUPIL: Yes Equal, round and reactive pupils present Neck/C-Spine: COMMON NORMALS: full ROM, supple and no JVD Lymph: LYMPHATIC: no lymphadenopathy noted Chest: COMMONS NORMALS: normal inspection of the chest and normal palpation of entire chest wall Resp: COMMON NORMALS: normal respiratory effort, No retractions and clear to auscultation bilaterally EFFORT & INSPECTION: Yes able to speak in complete sentences and Yes symmetric chest movement AUSCULTATION: clear to auscultation bilaterally Cardio: COMMON NORMALS: no JVD, regular rate and regular rhythm RATE: regular rate RHYTHM: regular rhythm GI: COMMON NORMALS: Soft to palpation; negative for non-tender (Moderate pain to palpation noted along the right side of the abdomen with r) INSPECTION: Yes normal to inspection PALPATION: Yes Soft to palpation : COMMON NORMALS: Yes no CVA tenderness BLADDER/KIDNEY EXAM: Yes no CVA tenderness Back/Pelvis: COMMON NORMALS: no CVA tenderness Extremity: COMMON NORMALS: normal to inspection and full ROM Neuro: COMMON NORMALS: patient oriented x3, CN's II-XII intact bilaterally, m oves all extremities and no focal motor deficits SENSORIUM/ORIENTATION: Yes alert (Patient appears nontoxic appears in no obvious acute distress appears in mi) Psych: COMMON NORMALS: mental status grossly normal, Normal thought process present, cooperative and normal affect THOUGHT PROCESS: Normal thought process present Skin: COMMON NORMALS: no rashes or lesions noted GENERAL SKIN EXAM: no rashes or lesions noted Course Vital Signs: Vital signs: Vital Signs Temperature 98.7 F 06/29/21 15:52 Pulse Rate 77 06/29/21 18:38 Respiratory Rate 16 06/29/21 18:38 Blood Pressure 151/114 06/29/21 18:38 Pulse Oximetry 99 06/29/21 18:38 MDM - Abdominal Pain Medical Decision Making Due to the patient's symptoms and condition lab work and imaging will be obtained underlying concerns of ruptured ovarian cyst versus ectopic versus acute appendicitis versus potential kidney stone are prominent we will continue to follow with an IV lab work imaging. Lab Data : 06/29/21 17:35 06/29/21 18:15 Labs/Radiology: Radiology Impressions Abdomen/Pelvis CT 06/29/21 16:17 IMPRESSION: 1. Suggestive findings of mild enterocolitis. No sign of obstruction. 2. Incidental findings above. Laboratory Results WBC 6.3 10^3/uL (4.0-10.0) 06/29/21 17:35 RBC 5.66 10^6/uL (4.1-5.3) H 06/29/21 17:35 Hgb 16.9 g/dL (11.5-15.3) H 06/29/21 17:35 Hct 46.8 % (37.0-47.0) 06/29/21 17:35 MCV 82.7 fl (81-99) 06/29/21 17:35 MCH 29.9 pg (28.0-34.0) 06/29/21 17:35 MCHC 36.1 g/dL (30.0-36.0) H 06/29/21 17:35 RDW 12.1 % (12.1-15.1) 06/29/21 17:35 Plt Count 289 10^3/cmm (130-400) 06/29/21 17:35 MPV 11.3 fL (7.4-10.4) H 06/29/21 17:35 Neut % (Auto) 39.7 % 06/29/21 17:35 Lymph % (Auto) 47.1 % 06/29/21 17:35 Hanson % (Auto) 11.6 % 06/29/21 17:35 Eos % (Auto) 1.1 % 06/29/21 17:35 Baso % (Auto) 0.3 % 06/29/21 17:35 Neut # (Auto) 2.50 10^3/uL (1.8-7.7) 06/29/21 17:35 Lymph # (Auto) 3.0 10^3/uL (0.8-4.8) 06/29/21 17:35 Hanson # (Auto) 0.7 10^3/uL (0.2-0.9) 06/29/21 17:35 Eos # (Auto) 0.1 10^3/uL (0.0-0.8) 06/29/21 17:35 Baso # (Auto) 0.0 10^3/uL (0.0-0.1) 06/29/21 17:35 Nucleated RBC % (auto) 0 % 06/29/21 17: Nucleated RBCs # 0.0 /100WBC 06/29/21 17:35 Sodium Cancelled 06/29/21 17:35 Potassium 3.6 mmol/L (3.5-5.1) 06/29/21 18:15 Chloride 102 mmol/L (98-107) 06/29/21 18:15 Carbon Dioxide 24 mmol/L (22-29) 06/29/21 18:15 Anion Gap 12.6 (5-19) 06/29/21 18:15 BUN 7 mg/dL (6-20) 06/29/21 18:15 Creatinine 0.6 mg/dL (0.5-0.9) 06/29/21 18:15 GFR Calculation 123.9 mL/min (90-130) 06/29/21 18:15 Glucose 80 mg/dL (65-115) 06/29/21 18:15 Calculated Osmolality Cancelled 06/29/21 17:35 Lactate 0.8 mmol/L (0.5-2.2) 06/29/21 17:35 Calcium 8.9 mg/dL (8.5-10.5) 06/29/21 18:15 Total Bilirubin 0.4 mg/dL (0.15-1.2) 06/29/21 18:15 AST 12 U/L (0-32) 06/29/21 18:15 ALT 15 U/L (0-33) 06/29/21 18:15 Alkaline Phosphatase 53 IU/L (35-105) 06/29/21 18:15 C-Reactive Protein 3.0 mg/L (0.0-4.9) 06/29/21 18:15 Total Protein 6.6 g/dL (6.6-8.7) 06/29/21 18:15 Albumin 4.0 g/dL (3.5-5.2) 06/29/21 18:15 Globulin 2.6 g/dL (1.3-4.6) 06/29/21 18:15 HCG, Qual Negative (Negative) 06/29/21 17:10 Urine Color Dark yellow (Yellow) 06/29/21 17:10 Urine Appearance Cloudy (CLEAR) 06/29/21 17:10 Urine pH 5 (5-7) 06/29/21 17:10 Ur Specific [place] 1.030 (1.005-1.030) 06/29/21 17:10 Urine Protein 1+ (Negative) H 06/29/21 17:10 Urine Glucose (UA) Norm (Normal) 06/29/21 17:10 Urine Ketones Negative (Negative) 06/29/21 17:10 Urine Blood 3+ (Negative) H 06/29/21 17:10 Urine Nitrate Negative (Negative) 06/29/21 17:10 Urine Bilirubin 1+ (Negative) H 06/29/21 17:10 Urine Urobilinogen 1 mg/dL (Negative) H 06/29/21 17:10 Ur Leukocyte Esterase Negative (Negative) 06/29/21 17:10 Urine RBC >100 /hpf (0-2) H 06/29/21 17:10 Urine WBC 5-10 /hpf (0-5) H 06/29/21 17:10 Ur Squamous Epith Cells 0-4 /hpf (0-5) H 06/29/21 17:10 Amorphous Sediment Not Reportable 06/29/21 17:10 Urine Bacteria 1+ /hpf (NONE) H 06/29/21 17:10 Urine Mucus Trace /hpf 06/29/21 17:10 Discharge Plan Discharge Patient Disposition: Home Clinical Impression: Enterocolitis Condition: Stable Prescriptions: New metronidazole 500 mg tablet 500 mg PO Q8H 7 Days Qty: 21 0RF ketorolac 10 mg tablet 10 mg PO TID PRN (Reason: pain) Qty: 10 0RF Continued ondansetron HCl [Zofran] 4 mg tablet 4 mg PO Q6H PRN (Reason: nausea and vomiting) Qty: 10 0RF Rx Instructions: pt not taking No Action acyclovir 400 mg tablet 800 mg PO DAILY Qty: 180 3RF zolpidem [Ambien] 5 mg tablet 5 mg PO BEDTIME Qty: 30 1RF Seroquel 100 mg tablet 100 mg PO BEDTIME Qty: 30 1RF prazosin 2 mg capsule 2 mg PO BEDTIME Qty: 30 1RF lamotrigine [Lamictal] 100 mg tablet 100 mg PO DAILY Qty: 30 1RF hydrocodone-acetaminophen 5-325 mg tablet 1 tab PO Q6H PRN (Reason: pain) 42 Days Qty: 20 0RF Rx Instructions: pt states not taking this medication pantoprazole 40 mg tablet,delayed release (DR/EC) 40 mg PO DAILY Qty: 30 2RF Rx Instructions: pt not taking triamcinolone acetonide 0.1 % cream 1 applic topical DAILY 14 Days Qty: 30 0RF acetaminophen [Tylenol Extra Strength] 500 mg Tablet 1,000 - 1,500 mg PO PRN 0RF albuterol sulfate [ProAir HFA] 90 mcg/actuation Hfa Aerosol Inhaler 2 puff INHALATION Q6H PRN (Reason: Shortness Of Breath) 0RF Colace 100 mg capsule 100 mg PO BID Qty: 30 0RF Discharge Orders: Discharge ED (Routine); Ordered 06/29/21 Ordered By: Noe Manzanares Referrals: Pretty Mcbride FNP [Primary Care Provider] - 4-7 days Discharge Diet: Advance as tolerated and Clear Liquid Discharge Activity: Increase activity as tolerated Patient Instructions: Gastroenteritis (ED) Activity Restrictions/Additional Instructions: Return for worsening pain despite treatment, significant fever, vomiting liquids or medications, blood in the stool, any other concerning symptoms. Coding Level of Care Code ED Chemotherapist for Chg Fwd Exam Comprehensive Documented by User: Noe Manzanares, 06/29/21 19:11 HPI - Abdominal Pain General: Chief Complaint: Abdominal Pain Stated Complaint: severe pain/menstrual issues Time Seen by Provider: 06/29/21 16:00 PFSH ED PFSH: Medical History Bipolar 2 disorder Bipolar disorder, in partial remission, most recent episode hypomanic Gastritis Post-traumatic stress disorder, chronic Psychiatric care Surgical History H/O oral surgery wisdom teeth History of colonoscopy 2020 History of esophagogastroduodenoscopy (EGD) History of tonsillectomy Status post laparoscopic cholecystectomy (09/25/20) Family History Grandmother No problems noted. Grandfather Diabetes paternal Heart disease paternal Hyperlipidemia paternal Stroke paternal Colon cancer paternal Mother Hypertension Family/Other Thyroid condition maternal aunt Denies family history of Ovarian cancer Clotting disorder Breast cancer Anesthesia complication Bleeding disorder Uterine cancer Social History Smoking and tobacco status: current every day smoker cigarettes Packs smoked per day: 1.5 Alcohol intake: current Alcohol intake frequency: holidays/special occasions only Alcohol type: hard liquor Adopted: No Marital status: Single service: No History of recent travel: No Course Vital Signs: Vital signs: Vital Signs Temperature 98.7 F 06/29/21 15:52 Pulse Rate 77 06/29/21 18:38 Respiratory Rate 16 06/29/21 18:38 Blood Pressure 151/114 06/29/21 18:38 Pulse Oximetry 99 06/29/21 18:38 MDM - Abdominal Pain Medical Decision Making Due to the patient's symptoms and condition lab work and imaging will be obtained underlying concerns of ruptured ovarian cyst versus ectopic versus acute appendicitis versus potential kidney stone are prominent we will continue to follow with an IV lab work imaging. 25-year-old female checked out to me by Dr. Hernandez at shift change. This young lady had right lower quadrant pain. Her white blood cell count is normal. Her CRP is normal as well. Hemoglobin is 17. Urinalysis is negative for leukocyte esterase. She has greater than 100 reds, but she is on her period. CT shows findings suggestive of mild enterocolitis in particular with mild wall edema of the ascending colon. There is a normal appendix present. No hydronephrosis. Her gallbladder is absent. There is only trace pelvic free fluid, no adnexal masses. The patient has been noted to be laughing in the room with family. She will be allowed discharge. Lab Data : 06/29/21 17:35 06/29/21 18:15 Labs/Radiology: Radiology Impressions Abdomen/Pelvis CT 06/29/21 16:17 IMPRESSION: 1. Suggestive findings of mild enterocolitis. No sign of obstruction. 2. Incidental findings above. Laboratory Results WBC 6.3 10^3/uL (4.0-10.0) 06/29/21 17:35 RBC 5.66 10^6/uL (4.1-5.3) H 06/29/21 17:35 Hgb 16.9 g/dL (11.5-15.3) H 06/29/21 17:35 Hct 46.8 % (37.0-47.0) 06/29/21 17:35 MCV 82.7 fl (81-99) 06/29/21 17:35 MCH 29.9 pg (28.0-34.0) 06/29/21 17:35 MCHC 36.1 g/dL (30.0-36.0) H 06/29/21 17:35 RDW 12.1 % (12.1-15.1) 06/29/21 17:35 Plt Count 289 10^3/cmm (130-400) 06/29/21 17:35 MPV 11.3 fL (7.4-10.4) H 06/29/21 17:35 Neut % (Auto) 39.7 % 06/29/21 17:35 Lymph % (Auto) 47.1 % 06/29/21 17:35 Hanson % (Auto) 11.6 % 06/29/21 17:35 Eos % (Auto) 1.1 % 06/29/21 17:35 Baso % (Auto) 0.3 % 06/29/21 17:35 Neut # (Auto) 2.50 10^3/uL (1.8-7.7) 06/29/21 17:35 Lymph # (Auto) 3.0 10^3/uL (0.8-4.8) 06/29/21 17:35 Hanson # (Auto) 0.7 10^3/uL (0.2-0.9) 06/29/21 17:35 Eos # (Auto) 0.1 10^3/uL (0.0-0.8) 06/29/21 17:35 Baso # (Auto) 0.0 10^3/uL (0.0-0.1) 06/29/21 17:35 Nucleated RBC % (auto) 0 % 06/29/21 17:35 Nucleated RBCs # 0.0 /100WBC 06/29/21 17:35 Sodium Cancelled 06/29/21 17:35 Potassium 3.6 mmol/L (3.5-5.1) 06/29/21 18:15 Chloride 102 mmol/L (98-107) 06/29/21 18:15 Carbon Dioxide 24 mmol/L (22-29) 06/29/21 18:15 Anion Gap 12.6 (5-19) 06/29/21 18:15 BUN 7 mg/dL (6-20) 06/29/21 18:15 Creatinine 0.6 mg/dL (0.5-0.9) 06/29/21 18:15 GFR Calculation 123.9 mL/min (90-130) 06/29/21 18:15 Glucose 80 mg/dL (65-115) 06/29/21 18:15 Calculated Osmolality Cancelled 06/29/21 17:35 Lactate 0.8 mmol/L (0.5-2.2) 06/29/21 17:35 Calcium 8.9 mg/dL (8.5-10.5) 06/29/21 18:15 Total Bilirubin 0.4 mg/dL (0.15-1.2) 06/29/21 18:15 AST 12 U/L (0-32) 06/29/21 18:15 ALT 15 U/L (0-33) 06/29/21 18:15 Alkaline Phosphatase 53 IU/L (35-105) 06/29/21 18:15 C-Reactive Protein 3.0 mg/L (0.0-4.9) 06/29/21 18:15 Total Protein 6.6 g/dL (6.6-8.7) 06/29/21 18:15 Albumin 4.0 g/dL (3.5-5.2) 06/29/21 18:15 Globulin 2.6 g/dL (1.3-4.6) 06/29/21 18:15 HCG, Qual Negative (Negative) 06/29/21 17:10 Urine Color Dark yellow (Yellow) 06/29/21 17:10 Urine Appearance Cloudy (CLEAR) 06/29/21 17:10 Urine pH 5 (5-7) 06/29/21 17:10 Ur Specific [place] 1.030 (1.005-1.030) 06/29/21 17:10 Urine Protein 1+ (Negative) H 06/29/21 17:10 Urine Glucose (UA) Norm (Normal) 06/29/21 17:10 Urine Ketones Negative (Negative) 06/29/21 17:10 Urine Blood 3+ (Negative) H 06/29/21 17:10 Urine Nitrate Negative (Negative) 06/29/21 17:10 Urine Bilirubin 1+ (Negative) H 06/29/21 17:10 Urine Urobilinogen 1 mg/dL (Negative) H 06/29/21 17:10 Ur Leukocyte Esterase Negative (Negative) 06/29/21 17:10 Urine RBC >100 /hpf (0-2) H 06/29/21 17:10 Urine WBC 5-10 /hpf (0-5) H 06/29/21 17:10 Ur Squamous Epith Cells 0-4 /hpf (0-5) H 06/29/21 17:10 Amorphous Sediment Not Reportable 06/29/21 17:10 Urine Bacteria 1+ /hpf (NONE) H 06/29/21 17:10 Urine Mucus Trace /hpf 06/29/21 17:10 Discharge Plan Discharge Patient Disposition: Home Clinical Impression: Enterocolitis Condition: Stable Prescriptions: New metronidazole 500 mg tablet 500 mg PO Q8H 7 Days Qty: 21 0RF ketorolac 10 mg tablet 10 mg PO TID PRN (Reason: pain) Qty: 10 0RF Continued ondansetron HCl [Zofran] 4 mg tablet 4 mg PO Q6H PRN (Reason: nausea and vomiting) Qty: 10 0RF Rx Instructions: pt not taking No Action acyclovir 400 mg tablet 800 mg PO DAILY Qty: 180 3RF zolpidem [Ambien] 5 mg tablet 5 mg PO BEDTIME Qty: 30 1RF Seroquel 100 mg tablet 100 mg PO BEDTIME Qty: 30 1RF prazosin 2 mg capsule 2 mg PO BEDTIME Qty: 30 1RF lamotrigine [Lamictal] 100 mg tablet 100 mg PO DAILY Qty: 30 1RF hydrocodone-acetaminophen 5-325 mg tablet 1 tab PO Q6H PRN (Reason: pain) 42 Days Qty: 20 0RF Rx Instructions: pt states not taking this medication pantoprazole 40 mg tablet,delayed release (DR/EC) 40 mg PO DAILY Qty: 30 2RF Rx Instructions: pt not taking triamcinolone acetonide 0.1 % cream 1 applic topical DAILY 14 Days Qty: 30 0RF acetaminophen [Tylenol Extra Strength] 500 mg Tablet 1,000 - 1,500 mg PO PRN 0RF albuterol sulfate [ProAir HFA] 90 mcg/actuation Hfa Aerosol Inhaler 2 puff INHALATION Q6H PRN (Reason: Shortness Of Breath) 0RF Colace 100 mg capsule 100 mg PO BID Qty: 30 0RF Discharge Orders: Discharge ED (Routine); Ordered 06/29/21 Ordered By: Noe Manzanares Referrals: Pretty Mcbride FNP [Primary Care Provider] - 4-7 days Discharge Diet: Advance as tolerated and Clear Liquid Discharge Activity: Increase activity as tolerated Patient Instructions: Gastroenteritis (ED) Activity Restrictions/Additional Instructions: Return for worsening pain despite treatment, significant fever, vomiting liquids or medications, blood in the stool, any other concerning symptoms. Coding Level of Care Code ED Chemotherapist for Chg Fwd Exam Comprehensive
[2021-06-29 17:32] LABS: Add Urine Microscopic? YES; Bilirubin Urine 1+ (Negative); Blood Urine 3+ (Negative); Glucose Urine UA Norm (Normal); Ketones Urine Negative (Negative); Leukocyte Esterase Urine Negative (Negative); Nitrate Urine Negative (Negative); Protein Urine 1+ (Negative); Urine Appearance Cloudy (CLEAR); Urine Color Dark Yellow (Yellow); Urobilinogen Urine 1 mg/dL (Negative); pH Urine 5 (5-7)
[2021-06-29 17:33] LABS: HCG Qualitative Urine. Negative (Negative)
[2021-06-29] MEDS: iohexol 300 mg/mL 100 mL Btl IV (17:40)
[2021-06-29 17:42] LABS: Add Urine Culture? Yes; Bacteria Urine 1+ /hpf; Mucus Urine TRACE /hpf; RBC Urine >100 /hpf (0-2); Squamous Epithelial Cell Urine 0-4 /hpf (0-5)
[2021-06-29] MEDS: sodium chloride 0.9% 1,000 ML 999 ML IV (17:59)
[2021-06-29] MEDS: ketorolac 30 mg/mL INJ IVP (17:59)
[2021-06-29] MEDS: ondansetron 2 mg/ML SDV 2 mL 4 MG IVP (17:59)
[2021-06-29 18:04] LABS: Basophils % 0.3 %; Eosinophils # 0.1 10^3/uL (0.0-0.8); Eosinophils % 1.1 %; Hematocrit 46.8 % (37.0-47.0); Hemoglobin 16.9 g/dL (11.5-15.3); Lymphocytes % 47.1 %; Mean Corpuscular HGB Conc 36.1 g/dL (30.0-36.0); Mean Corpuscular Hemoglobin 29.9 pg (28.0-34.0); Mean Corpuscular Volume 82.7 fl (81-99); Mean Platelet Volume 11.3 fL (7.4-10.4); Monocytes # 0.7 10^3/uL (0.2-0.9); Monocytes % 11.6 %; Neutrophils % 39.7 %; Nucleated Red Blood Cells % 0 %; Platelet Count 289 10^3/cmm (130-400); Red Blood Count 5.66 10^6/uL (4.1-5.3); Red Cell Distribution Width 12.1 % (12.1-15.1); White Blood Count 6.3 10^3/uL (4.0-10.0)
[2021-06-29 18:07] VITALS: BP 139/115; PULSE 75; RESP 16; O2SAT 98
[2021-06-29 18:20] LABS: Lactate (Lactic Acid level) 0.8 mmol/L (0.5-2.2)
[2021-06-29 18:38] VITALS: BP 151/114; PULSE 77; RESP 16; O2SAT 99
[2021-06-29 18:47] LABS: Alanine Aminotransferase 15 U/L (0-33); Alkaline Phosphatase 53 IU/L (35-105); Anion Gap 12.6 (5-19); Aspartate Amino Transferase 12 U/L (0-32); Blood Urea Nitrogen 7 mg/dL (6-20); Calcium 8.9 mg/dL (8.5-10.5); Carbon Dioxide 24 mmol/L (22-29); Chloride 102 mmol/L (98-107); Globulin 2.6 g/dL (1.3-4.6); Glomerular Filtration Rate 123.9 mL/min (90-130); Glucose 80 mg/dL (65-115); Osmolality Calculated 277 mOsm/kg (285-295); Potassium 3.6 mmol/L (3.5-5.1); Sodium 135 mmol/L (136-145); Total Bilirubin 0.4 mg/dL (0.15-1.2); Total Protein 6.6 g/dL (6.6-8.7)
[2021-06-29 19:00] VITALS: BP 155/100; PULSE 91; RESP 18; O2SAT 98
[2021-06-29] MEDS: diphenhydrAMINE 50 mg/mL SDV 1mL 25 MG IVP (19:18)
[2021-06-29 19:45] VITALS: BP 143/93; PULSE 78; RESP 18; O2SAT 99
== END 2021-06-29 19:45 | disposition home or self-care (01) ==
PROVIDERS: Emergency Medicine; Emergency Provider Emergency Medicine; PCP Nurse Practitioner Family
DX: K52.9 Noninfective gastroenteritis and colitis, unspecified (principal); F17.210 Nicotine dependence, cigarettes, uncomplicated
CPT/HCPCS: 74177; 80053; 81001; 81025; 83605; 85025; 86140; 87086; 96361; 96374; 96375; 99283; J1200; J1885; J2405; J7030; Q9967

== ENCOUNTER 2021-12-29 16:50 | Emergency (ER) | payer MEDICAID, SELFPAY ==
[2021-12-29 16:51] VITALS: BP 156/97; PULSE 89; RESP 18; TEMP 36.7; O2SAT 98; BMI 29.8
--- NOTE | 2021-12-29 17:04 | ED_ITS ---
HPI - Wound/Laceration General: Chief Complaint: Wound/Laceration Stated Complaint: Left leg possible spider bite Time Seen by Provider: 12/29/21 16:51 History of Present Illness: Patient is a 26 y/o female comes to the ED with possible spider bite to left leg. Patient says she felt a bite to her left leg approximately 8 hours ago but denies seeing what actually bit her. She sees a lot of brown recluse spiders around her house. Bite is on the left lower thigh. She says there was a small puslike blister that she scrubbed and popped in the shower. The skin around spider bite is tender, warm and red. Associated symptoms: Denies chills, fever(s), nausea or vomiting Review of Systems Const: Denies: fever(s), chills or fatigue Eyes: Denies: change in vision or eye discomfort ENMT: Denies: throat pain, odynophagia, nasal discharge or nasal congestion Card: Denies: chest pain, palpitations, edema, swelling of feet/ankles, dyspnea on exertion or orthopnea Resp: Denies: dyspnea, productive cough or non-productive cough GI: Denies: abdominal pain, nausea, vomiting, diarrhea, constipation or hematochezia : Denies: flank pain, dysuria or hematuria Musc: Denies: neck pain, back pain or extremity swelling Skin/Breast: Reports: new lesions (Spider bite to left leg); Denies: rash Neuro: Denies: headache(s), numbness in extremities or weakness in extremities PFS ED PFSH: Medical History Bipolar 2 disorder Bipolar disorder, in partial remission, most recent episode hypomanic Gastritis Post-traumatic stress disorder, chronic Psychiatric care Surgical History H/O oral surgery wisdom teeth History of colonoscopy 2020 History of esophagogastroduodenoscopy (EGD) History of tonsillectomy Status post laparoscopic cholecystectomy (09/25/20) Family History Grandmother No problems noted. Grandfather Diabetes paternal Heart disease paternal Hyperlipidemia paternal Stroke paternal Colon cancer paternal Mother Hypertension Family/Other Thyroid condition maternal aunt Denies family history of Ovarian cancer Clotting disorder Breast cancer Anesthesia complication Bleeding disorder Uterine cancer Social History Smoking and tobacco status: current every day smoker cigarettes Packs smoked per day: 1.5 Alcohol intake: current Alcohol intake frequency: holidays/special occasions only Alcohol type: hard liquor Adopted: No Marital status: Single service: No History of recent travel: No Female Reproductive History: Date of last menstrual period: 12/16/21 Physical Exam Const: COMMON NORMALS: no acute distress, patient oriented x3, healthy appearing and alert GENERAL APPEARANCE: cooperative and comfortable HENMT: COMMON NORMALS: normocephalic HEAD & SCALP: normocephalic MOUTH: Normal oral and palatal mucosa present THROAT: posterior oropharynx normal and uvula midline Neck/C-Spine: COMMON NORMALS: supple GENERAL: Yes normal visual inspection Resp: COMMON NORMALS: normal respiratory effort, No retractions, No use of accessory muscles and clear to auscultation bilaterally AUSCULTATION: clear to auscultation bilaterally Cardio: COMMON NORMALS: regular rate, regular rhythm, S1 normal heart sound present, S2 normal heart sound present, No gallops present (Cardio), No clicks present (Cardio), No murmurs present (Cardio) and Peripheral pulses 2+ throughout RATE: regular rate RHYTHM: regular rhythm HEART SOUNDS: S1 normal heart sound present and S2 normal heart sound present PERIPHERAL PULSES: Peripheral pulses 2+ throughout GI: COMMON NORMALS: Normal to inspection, nondistended, normoactive bowel sounds present, Soft to palpation, non-tender and no masses PALPATION: Yes Soft to palpation : COMMON NORMALS: Yes no CVA tenderness BLADDER/KIDNEY EXAM: Yes no CVA tenderness Back/Pelvis: COMMON NORMALS: no CVA tenderness Extremity: NARRATIVE EXTREMITY EXAM: Left thigh?small wound with central ulceration of skin. There is some surrounding erythema, warmth and tenderness. No visible purulent drainage noted. GENERAL: Yes normal exam except as noted Neuro: COMMON NORMALS: patient oriented x3 SENSORIUM/ORIENTATION: Yes alert GAIT: Yes Normal gait present Skin: GENERAL SKIN EXAM: dry skin Course Vital Signs: Vital signs: Vital Signs Temperature 98.0 F 12/29/21 16:51 Pulse Rate 89 12/29/21 16:51 Respiratory Rate 18 12/29/21 16:51 Blood Pressure 156/97 12/29/21 16:51 Pulse Oximetry 98 12/29/21 16:51 Oxygen Delivery Me thod 12/29/21 16:51 MDM - Wound/Laceration Medical Decision Making Patient is a 26-year-old female comes to the ED with possible spider bite wound on left thigh. Vitals are stable. Patient appears nontoxic in no acute distress. She has a small ulcerated wound with some surrounding erythema warmth and tenderness. Findings suggestive of a spider bite. Patient was stable for discharge home and given a dose of clindamycin here in the ED. She was sent home with a prescription for clindamycin and told to follow-up with her PCP in the next week for reevaluation. Discharge Plan Discharge Patient Disposition: Home Clinical Impression: Spider bite Qualifiers: Encounter type: initial encounter Injury intent: accidental or unintentional Qualified Code(s): T63.301A - Toxic effect of unspecified spider venom, accidental (unintentional), initial encounter Condition: Stable Prescriptions: New clindamycin HCl 150 mg capsule 300 mg PO QID 7 Days Qty: 56 0RF Triple Antibiotic 3.5mg-400 unit- 5,000 unit/gram ointment 1 applic topical DAILY PRN (Reason: wound) Qty: 15 0RF No Action acyclovir 400 mg tablet 800 mg PO DAILY Qty: 180 3RF zolpidem [Ambien] 5 mg tablet 5 mg PO BEDTIME Qty: 30 1RF Seroquel 100 mg tablet 100 mg PO BEDTIME Qty: 30 1RF prazosin 2 mg capsule 2 mg PO BEDTIME Qty: 30 1RF lamotrigine [Lamictal] 100 mg tablet 100 mg PO DAILY Qty: 30 1RF hydrocodone-acetaminophen 5-325 mg tablet 1 tab PO Q6H PRN (Reason: pain) 42 Days Qty: 20 0RF Rx Instructions: pt states not taking this medication pantoprazole 40 mg tablet,delayed release (DR/EC) 40 mg PO DAILY Qty: 30 2RF Rx Instructions: pt not taking triamcinolone acetonide 0.1 % cream 1 applic topical DAILY 14 Days Qty: 30 0RF acetaminophen [Tylenol Extra Strength] 500 mg Tablet 1,000 - 1,500 mg PO PRN albuterol sulfate [ProAir HFA] 90 mcg/actuation Hfa Aerosol Inhaler 2 puff INHALATION Q6H PRN (Reason: Shortness Of Breath) Colace 100 mg capsule 100 mg PO BID Qty: 30 0RF ketorolac 10 mg tablet 10 mg PO TID PRN (Reason: pain) Qty: 10 0RF Zofran 4 mg tablet 4 mg PO Q6H PRN (Reason: nausea and vomiting) Qty: 10 0RF Rx Instructions: pt not taking Discharge Orders: Discharge ED (Routine); Ordered 12/29/21 Ordered By: Denzel Wright Referrals: Pretty Mcbride FNP [Primary Care Provider] - Discharge Diet: Regular Discharge Activity: Resume usual activity Patient Instructions: Insect Bite or Sting (ED), Brown Recluse Spider Bite (ED) Activity Restrictions/Additional Instructions: Follow-up with medical provider as directed in the next 5 to 7 days reevaluation. Take medications as prescribed. Clean wound daily with soap and water and then apply triple antibiotic ointment on it and cover with Band-Aid. Return to the ER or your medical provider if condition worsens. Please read and understand discharge instructions. Thank you for choosing [facility] for your healthcare needs today. Please realize this is an emergency room and that we are providing you with a medical screening exam and this may not be complete and all inclusive of all the testing and or work up that you may need to determine your ailment or severity of your illness. It is very important that you follow up as instructed or that you return to the Emergency Department should you have concerns or if your condition changes or worsens in any way. Coding Level of Care Code ED District Fire Management Officer for Jarret Fwpriya Exam Comprehensive
[2021-12-29] MEDS: neomycin-poly-bacitracin oint 28 gm 1 APPLIC TOPICAL (17:22)
[2021-12-29] MEDS: clindamycin 150 mg Capsule 300 MG PO (17:22)
== END 2021-12-29 17:27 | disposition home or self-care (01) ==
PROVIDERS: Emergency Provider Physician Assistant; PCP Nurse Practitioner Family
DX: T63.301A Toxic effect of unspecified spider venom, accidental (unintentional), initial encounter (principal); F17.210 Nicotine dependence, cigarettes, uncomplicated
CPT/HCPCS: 99283

== ENCOUNTER 2022-03-12 23:20 | Emergency (ER) | payer MEDICAID, SELFPAY ==
[2022-03-12 23:33] VITALS: BP 197/133; PULSE 99; RESP 16; TEMP 36.9; O2SAT 99; BMI 30.5
[2022-03-13 00:21] LABS: Basophils % 0.4 %; Eosinophils # 0.1 10^3/uL (0.0-0.8); Eosinophils % 0.8 %; Hematocrit 44.6 % (37.0-47.0); Hemoglobin 14.9 g/dL (11.5-15.3); Lymphocytes # 2.4 10^3/uL (0.8-4.8); Lymphocytes % 32.4 %; Mean Corpuscular HGB Conc 33.4 g/dL (30.0-36.0); Mean Corpuscular Volume 86.9 fl (81-99); Mean Platelet Volume 10.1 fL (7.4-10.4); Monocytes # 0.8 10^3/uL (0.2-0.9); Monocytes % 10.7 %; Neutrophils # 4.15 10^3/uL (1.8-7.7); Neutrophils % 55.4 %; Nucleated Red Blood Cells % 0 %; Platelet Count 300 10^3/cmm (130-400); Red Blood Count 5.13 10^6/uL (4.1-5.3); Red Cell Distribution Width 12.2 % (12.1-15.1); White Blood Count 7.5 10^3/uL (4.0-10.0)
--- NOTE | 2022-03-13 00:28 | ED_ITS ---
HPI - Female Genitourinary General: Chief complaint: Vaginal Bleeding Stated complaint: pain in liver Time Seen by Provider: 03/12/22 23:36 Source: patient Mode of arrival: ambulatory Limitations: no limitations History of Present Illness: 26-year-old female is here with multiple complaints she did admit to meth use the last 2 days patient states that she has been having abdominal pain along with pain in her extremities she has been having vaginal bleeding and her last menstruation was 2 weeks ago she is concerned she may be patient here is under the influence of meth states her pain was earlier today and felt like in her liver she is currently pain-free denies any worsening proving factors. Associated symptoms: Reports abdominal pain; Deny headache(s) Date of Last Menstrual Period: 03/03/22 Review of Systems Const: Denies: fever(s), chills, body aches or change in appetite Eyes: Denies: blurry vision or eye discomfort ENMT: Denies: throat pain or dental pain Card: Denies: chest pain Resp: Denies: dyspnea GI: Reports: abdominal pain : Reports: vaginal bleeding Musc: Reports: extremity pain Skin/Breast: Denies: rash Neuro: Denies: headache(s) Psych: Denies: depression Jeffrey/Lymph: Denies: easy bruising All/Imm: Denies: urticaria PFSH ED PFSH: Medical History Bipolar 2 disorder Bipolar disorder, in partial remission, most recent episode hypomanic Gastritis Post-traumatic stress disorder, chronic Psychiatric care Surgical History H/O oral surgery wisdom teeth History of colonoscopy 2020 History of esophagogastroduodenoscopy (EGD) History of tonsillectomy Status post laparoscopic cholecystectomy (09/25/20) Family History Grandmother No problems noted. Grandfather Diabetes paternal Heart disease paternal Hyperlipidemia paternal Stroke paternal Colon cancer paternal Mother Hypertension Family/Other Thyroid condition maternal aunt Denies family history of Ovarian cancer Clotting disorder Breast cancer Anesthesia complication Bleeding disorder Uterine cancer Social History Smoking and tobacco status: current every day smoker cigarettes Packs smoked per day: 1.5 Alcohol intake: current Alcohol intake frequency: holidays/special occasions only Alcohol type: hard liquor Adopted: No Marital status: Single service: No History of recent travel: No Female Reproductive History: Date of last menstrual period: 03/03/22 Physical Exam Const: COMMON NORMALS: no acute distress, patient oriented x3 and healthy appearing HENMT: COMMON NORMALS: normocephalic and atraumatic HEAD & SCALP: normocephalic and atraumatic Eye: COMMON NORMALS: Equal, round and reactive pupils present and EOMs intact bilaterally PUPIL: Yes Equal, round and reactive pupils present Neck/C-Spine: COMMON NORMALS: full ROM and supple Chest: COMMONS NORMALS: normal inspection of the chest and normal palpation of entire chest wall Resp: COMMON NORMALS: normal respiratory effort, No retractions, No use of accessory muscles and clear to auscultation bilaterally AUSCULTATION: clear to auscultation bilaterally Cardio: COMMON NORMALS: regular rate, regular rhythm and No murmurs present (Cardio) RATE: regular rate RHYTHM: regular rhythm GI: COMMON NORMALS: Normal to inspection, nondistended, normoactive bowel sounds present, Soft to palpation, non-tender and no masses PALPATION: Yes Soft to palpation Extremity: COMMON NORMALS: normal to inspection and full ROM Neuro: COMMON NORMALS: patient oriented x3, moves all extremities and no focal motor deficits Psych: COMMON NORMALS: mental status grossly normal, Normal thought process present and cooperative THOUGHT PROCESS: Normal thought process present Skin: COMMON NORMALS: no rashes or lesions noted and no wounds GENERAL SKIN EXAM: no rashes or lesions noted Course Vital Signs: Vital signs: Vital Signs Temperature 98.4 F 03/12/22 23:33 Pulse Rate 96 03/13/22 01:28 Respiratory Rate 16 03/13/22 01:28 Blood Pressure 125/82 03/13/22 01:28 Pulse Oximetry 100 03/13/22 01:28 Oxygen Delivery Me thod 03/12/22 23:33 MDM - Female Medical Decision Making Patient presents with multiple complaints her main complaint is abdominal pain and vaginal bleeding she is not she is likely having her menstruation. Her exam here is benign blood work is normal white count is normal no sign of ac christine surgical abdomen she is stable for discharge we will place her on Zofran she is return if worsening. Lab Data 03/13/22 00:17 03/13/22 00:17 Laboratory Results WBC 7.5 10^3/uL (4.0-10.0) 03/13/22 00:17 RBC 5.13 10^6/uL (4.1-5.3) 03/13/22 00:17 Hgb 14.9 g/dL (11.5-15.3) 03/13/22 00:17 Hct 44.6 % (37.0-47.0) 03/13/22 00:17 MCV 86.9 fl (81-99) 03/13/22 00:17 MCH 29.0 pg (28.0-34.0) 03/13/22 00:17 MCHC 33.4 g/dL (30.0-36.0) 03/13/22 00:17 RDW 12.2 % (12.1-15.1) 03/13/22 00:17 Plt Count 300 10^3/cmm (130-400) 03/13/22 00:17 MPV 10.1 fL (7.4-10.4) 03/13/22 00:17 Neut % (Auto) 55.4 % 03/13/22 00:17 Lymph % (Auto) 32.4 % 03/13/22 00:17 Tama % (Auto) 10.7 % 03/13/22 00:17 Eos % (Auto) 0.8 % 03/13/22 00:17 Baso % (Auto) 0.4 % 03/13/22 00:17 Neut # (Auto) 4.15 10^3/uL (1.8-7.7) 03/13/22 00:17 Lymph # (Auto) 2.4 10^3/uL (0.8-4.8) 03/13/22 00:17 Tama # (Auto) 0.8 10^3/uL (0.2-0.9) 03/13/22 00:17 Eos # (Auto) 0.1 10^3/uL (0.0-0.8) 03/13/22 00:17 Baso # (Auto) 0.0 10^3/uL (0.0-0.1) 03/13/22 00:17 Nucleated RBC % (auto) 0 % 03/13/22 00:17 Nucleated RBCs # 0.0 /100WBC 03/13/22 00:17 Sodium 136 mmol/L (136-145) 03/13/22 00:17 Potassium 3.6 mmol/L (3.5-5.1) 03/13/22 00:17 Chloride 100 mmol/L (98-107) 03/13/22 00:17 Carbon Dioxide 25 mmol/L (22-29) 03/13/22 00:17 Anion Gap 14.6 (5-19) 03/13/22 00:17 BUN 12 mg/dL (6-20) 03/13/22 00:17 Creatinine 0.6 mg/dL (0.5-0.9) 03/13/22 00:17 GFR Calculation 122.8 mL/min (90-130) 03/13/22 00:17 Glucose 86 mg/dL (65-115) 03/13/22 00:17 Calculated Osmolality 281 mOsm/kg (285-295) L 03/13/22 00:17 Calcium 9.4 mg/dL (8.5-10.5) 03/13/22 00:17 Total Bilirubin 0.3 mg/dL (0.15-1.2) 03/13/22 00:17 AST 36 U/L (0-32) H 03/13/22 00:17 ALT 101 U/L (0-33) H 03/13/22 00:17 Alkaline Phosphatase 56 U/L (35-105) 03/13/22 00:17 Total Protein 7.4 g/dL (6.6-8.7) 03/13/22 00:17 Albumin 4.4 g/dL (3.5-5.2) 03/13/22 00:17 Globulin 3.0 g/dL (1.3-4.6) 03/13/22 00:17 Lipase 17 U/L (13-60) 03/13/22 00:17 HCG, Qual Negative (Negative) 03/13/22 00:17 Urine Color Red (Yellow) 03/13/22 00:17 Urine Appearance Cloudy (CLEAR) A 03/13/22 00:17 Urine pH 5 (5-7) 03/13/22 00:17 Ur Specific Ross 1.030 (1.005-1.030) 03/13/22 00:17 Urine Protein 3+ (Negative) H 03/13/22 00:17 Urine Glucose (UA) Norm (Normal) 03/13/22 00:17 Urine Ketones 1+ (Negative) H 03/13/22 00:17 Urine Blood 3+ (Negative) H 03/13/22 00:17 Urine Nitrate Negative (Negative) 03/13/22 00:17 Urine Bilirubin 1+ (Negative) H 03/13/22 00:17 Urine Urobilinogen 1 mg/dL (Negative) H 03/13/22 00:17 Ur Leukocyte Esterase Trace (Negative) H 03/13/22 00:17 Urine RBC Too numerous to cnt /hpf (0-2) H 03/13/22 00:17 Urine WBC 5-10 /hpf (0-5) H 03/13/22 00:17 Ur Squamous Epith Cells 15-25 /hpf (0-5) H 03/13/22 00:17 Amorphous Sediment Not Reportable 03/13/22 00:17 Urine Bacteria 4+ /hpf (NONE) H 03/13/22 00:17 Discharge Plan Discharge Patient Disposition: Home Clinical Impression: Vaginal bleeding, Abdominal pain Condition: Stable Prescriptions: New ondansetron 4 mg tablet,disintegrating 4 mg PO Q6H PRN (Reason: nausea and vomiting) Qty: 14 0RF No Action acyclovir 400 mg tablet 800 mg PO DAILY Qty: 180 3RF zolpidem [Ambien] 5 mg tablet 5 mg PO BEDTIME Qty: 30 1RF Seroquel 100 mg tablet 100 mg PO BEDTIME Qty: 30 1RF prazosin 2 mg capsule 2 mg PO BEDTIME Qty: 30 1RF lamotrigine [Lamictal] 100 mg tablet 100 mg PO DAILY Qty: 30 1RF hydrocodone-acetaminophen 5-325 mg tablet 1 tab PO Q6H PRN (Reason: pain) 42 Days Qty: 20 0RF Rx Instructions: pt states not taking this medication pantoprazole 40 mg tablet,delayed release (DR/EC) 40 mg PO DAILY Qty: 30 2RF Rx Instructions: pt not taking triamcinolone acetonide 0.1 % cream 1 applic topical DAILY 14 Days Qty: 30 0RF acetaminophen [Tylenol Extra Strength] 500 mg Tablet 1,000 - 1,500 mg PO PRN albuterol sulfate [ProAir HFA] 90 mcg/actuation Hfa Aerosol Inhaler 2 puff INHALATION Q6H PRN (Reason: Shortness Of Breath) Colace 100 mg capsule 100 mg PO BID Qty: 30 0RF ketorolac 10 mg tablet 10 mg PO TID PRN (Reason: pain) Qty: 10 0RF Zofran 4 mg tablet 4 mg PO Q6H PRN (Reason: nausea and vomiting) Qty: 10 0RF Rx Instructions: pt not taking Triple Antibiotic 3.5mg-400 unit- 5,000 unit/gram ointment 1 applic topical DAILY PRN (Reason: wound) Qty: 15 0RF Discharge Orders: Discharge ED (Routine); Ordered 03/13/22 Ordered By: Frances Islas Referrals: Pretty Mcbride FNP [Primary Care Provider] - 1-3 days Discharge Diet: Advance as tolerated Discharge Activity: Resume usual activity Coding Level of Care Code ED Assembler Garment Form for Chg Fwd Exam Comprehensive
[2022-03-13 00:36] LABS: Add Urine Microscopic? YES; Bilirubin Urine 1+ (Negative); Blood Urine 3+ (Negative); Glucose Urine UA Norm (Normal); Ketones Urine 1+ (Negative); Leukocyte Esterase Urine Trace (Negative); Nitrate Urine Negative (Negative); Protein Urine 3+ (Negative); Urine Appearance Cloudy (CLEAR); Urine Color Red (Yellow); Urobilinogen Urine 1 mg/dL (Negative); pH Urine 5 (5-7)
[2022-03-13 00:37] LABS: Bacteria Urine 4+ /hpf; RBC Urine TOO NUMEROUS TO CNT /hpf (0-2); Squamous Epithelial Cell Urine 15-25 /hpf (0-5)
[2022-03-13 00:38] LABS: Add Urine Culture? No
[2022-03-13] MEDS: metoclopramide 5 mg/mL SDV 2 mL 10 MG IVP (00:42)
[2022-03-13 00:44] VITALS: RESP 18
[2022-03-13] MEDS: morphine 4 mg/mL SDV 1 mL IVP (00:44)
[2022-03-13] MEDS: diphenhydrAMINE 50 mg/mL SDV 1mL IVP (00:47)
[2022-03-13 00:51] VITALS: BP 140/95; PULSE 86; RESP 16; O2SAT 97
[2022-03-13 00:54] LABS: Alanine Aminotransferase 101 U/L (0-33); Albumin Level 4.4 g/dL (3.5-5.2); Alkaline Phosphatase 56 U/L (35-105); Anion Gap 14.6 (5-19); Aspartate Amino Transferase 36 U/L (0-32); Blood Urea Nitrogen 12 mg/dL (6-20); Calcium 9.4 mg/dL (8.5-10.5); Carbon Dioxide 25 mmol/L (22-29); Chloride 100 mmol/L (98-107); Glomerular Filtration Rate 122.8 mL/min (90-130); Glucose 86 mg/dL (65-115); HCG, Serum Qual Negative (Negative); Lipase 17 U/L (13-60); Osmolality Calculated 281 mOsm/kg (285-295); Potassium 3.6 mmol/L (3.5-5.1); Sodium 136 mmol/L (136-145); Total Bilirubin 0.3 mg/dL (0.15-1.2); Total Protein 7.4 g/dL (6.6-8.7)
[2022-03-13 01:28] VITALS: BP 125/82; PULSE 96; RESP 16; O2SAT 100
== END 2022-03-13 04:15 | disposition home or self-care (01) ==
PROVIDERS: Emergency Provider Emergency Medicine; PCP Nurse Practitioner Family
DX: N93.9 Abnormal uterine and vaginal bleeding, unspecified (principal); R10.9 Unspecified abdominal pain; F17.210 Nicotine dependence, cigarettes, uncomplicated
CPT/HCPCS: 80053; 81001; 83690; 84703; 85025; 96374; 96375; 99284; J1200; J2270; J2765

== ENCOUNTER → 2022-07-02 13:26 | Outpatient (BNVA) | payer MEDICAID, SELFPAY | PROVIDERS: PCP Nurse Practitioner Family; Visit Provider Nurse Practitioner Family | DX: Z34.91 Encounter for supervision of normal pregnancy, unspecified, first trimester (principal); R05.9 Cough, unspecified; J40 Bronchitis, not specified as acute or chronic | CPT/HCPCS: 87400; 87426 ==

== ENCOUNTER → 2022-07-09 13:10 | Outpatient (BNVA) | payer MEDICAID, SELFPAY | PROVIDERS: PCP Nurse Practitioner Family; Visit Provider Nurse Practitioner Women's Health | DX: Z34.91 Encounter for supervision of normal pregnancy, unspecified, first trimester (principal); A60.00 Herpesviral infection of urogenital system, unspecified | CPT/HCPCS: 80307; 81025; 84315; 84443; 85025; 86592; 86705; 86706; 86709; 86762; 86787; 86803; 86850; 86900; 87086; 87340; 87806 ==

== ENCOUNTER → 2022-08-05 08:14 | Outpatient (BNVA) | payer MEDICAID, SELFPAY | PROVIDERS: PCP Nurse Practitioner Family; Visit Provider Obstetrics & Gynecology | DX: Z34.90 Encounter for supervision of normal pregnancy, unspecified, unspecified trimester (principal) | CPT/HCPCS: 80307; 81000 ==

== ENCOUNTER → 2022-08-19 10:00 | Outpatient (BNVA) | payer MEDICAID, SELFPAY | PROVIDERS: PCP Nurse Practitioner Family; Visit Provider Obstetrics & Gynecology | DX: O09.899 Supervision of other high risk pregnancies, unspecified trimester (principal); R82.90 Unspecified abnormal findings in urine; Z12.4 Encounter for screening for malignant neoplasm of cervix | CPT/HCPCS: 80307; 84315; 84443; 85027; 86592; 86762; 86803; 86850; 86900; 87086; 87340; 87491; 87591; 87624; 87661; 87806 ==

== ENCOUNTER → 2022-09-11 09:59 | Outpatient (BNVA) | payer MEDICAID, SELFPAY | PROVIDERS: PCP Nurse Practitioner Family; Visit Provider Obstetrics & Gynecology | DX: O09.899 Supervision of other high risk pregnancies, unspecified trimester (principal); R82.90 Unspecified abnormal findings in urine; Z3A.00 Weeks of gestation of pregnancy not specified | CPT/HCPCS: 80307; 84315; 87086 ==

== ENCOUNTER → 2022-10-17 14:08 | Outpatient (BNVA) | payer MEDICAID, SELFPAY | PROVIDERS: PCP Nurse Practitioner Family; Visit Provider Obstetrics & Gynecology | DX: O09.899 Supervision of other high risk pregnancies, unspecified trimester (principal); Z3A.20 20 weeks gestation of pregnancy | CPT/HCPCS: 80307; 84315; 87086 ==

== ENCOUNTER → 2022-11-06 13:20 | Outpatient (BNVA) | payer MEDICAID, SELFPAY | PROVIDERS: PCP Nurse Practitioner Family; Visit Provider Obstetrics & Gynecology | DX: O09.899 Supervision of other high risk pregnancies, unspecified trimester (principal); Z3A.24 24 weeks gestation of pregnancy | CPT/HCPCS: 80307; 84315 ==

== ENCOUNTER → 2022-12-02 13:53 | Outpatient (BNVA) | payer MEDICAID, SELFPAY | PROVIDERS: PCP Nurse Practitioner Family; Visit Provider Nurse Practitioner Family | DX: R50.9 Fever, unspecified (principal) | CPT/HCPCS: 87426 ==

== ENCOUNTER 2022-12-17 14:25 | Outpatient (CLI) | payer MEDICAID, SELFPAY ==
[2022-12-17 14:30] VITALS: BMI 34.8
[2022-12-17 14:51] VITALS: BP 135/77; PULSE 85
[2022-12-17 15:07] VITALS: RESP 16
[2022-12-17 15:21] VITALS: BP 133/70; PULSE 80
[2022-12-17 15:51] VITALS: BP 139/70; PULSE 83
[2022-12-17 16:14] VITALS: BP 139/70; PULSE 83
== END 2022-12-17 16:15 | disposition home or self-care (01) ==
LOC: OPOB 14:44 → OBGYN 14:45
PROVIDERS: PCP Nurse Practitioner Family; Visit Provider Obstetrics & Gynecology
DX: O16.9 Unspecified maternal hypertension, unspecified trimester (principal); Z3A.00 Weeks of gestation of pregnancy not specified; Y09 Assault by unspecified means
CPT/HCPCS: 59025; 82950; 84315; 99211

== ENCOUNTER → 2023-01-14 12:23 | Outpatient (BNVA) | payer MEDICAID, SELFPAY | PROVIDERS: PCP Nurse Practitioner Family; Visit Provider Obstetrics & Gynecology | DX: Z34.93 Encounter for supervision of normal pregnancy, unspecified, third trimester (principal); Z3A.34 34 weeks gestation of pregnancy | CPT/HCPCS: 76816 ==

== ENCOUNTER 2023-01-14 14:43 | Outpatient (CLI) | payer MEDICAID, SELFPAY ==
[2023-01-14 14:43] VITALS: BMI 34.9
[2023-01-14 14:52] VITALS: BP 131/87; PULSE 88
[2023-01-14 15:02] VITALS: RESP 17
[2023-01-14 15:07] VITALS: BP 147/90; PULSE 90
[2023-01-14 15:22] VITALS: BP 146/85; PULSE 83
[2023-01-14 15:39] VITALS: BP 155/93; PULSE 83
[2023-01-14 15:40] VITALS: BP 155/93; PULSE 83
== END 2023-01-14 15:40 | disposition home or self-care (01) ==
LOC: OPOB 14:47 → OBGYN 14:49
PROVIDERS: PCP Nurse Practitioner Family; Visit Provider Obstetrics & Gynecology
DX: O16.9 Unspecified maternal hypertension, unspecified trimester (principal); Z3A.00 Weeks of gestation of pregnancy not specified
CPT/HCPCS: 59025; 84315; 99211

== ENCOUNTER → 2023-01-28 13:41 | Outpatient (BNVA) | payer MEDICAID, SELFPAY | PROVIDERS: PCP Nurse Practitioner Family; Visit Provider Nurse Practitioner Women's Health | DX: O09.899 Supervision of other high risk pregnancies, unspecified trimester (principal); Z3A.36 36 weeks gestation of pregnancy | CPT/HCPCS: 80307; 84315; 87081 ==

== ENCOUNTER → 2023-02-04 14:04 | Outpatient (BNVA) | payer MEDICAID, SELFPAY | PROVIDERS: PCP Nurse Practitioner Family; Visit Provider Obstetrics & Gynecology | DX: O09.899 Supervision of other high risk pregnancies, unspecified trimester (principal) | CPT/HCPCS: 76815; 80307; 84315 ==

== ENCOUNTER → 2023-02-11 13:41 | Outpatient (BNVA) | payer MEDICAID, SELFPAY | PROVIDERS: PCP Nurse Practitioner Family; Visit Provider Obstetrics & Gynecology | DX: O09.899 Supervision of other high risk pregnancies, unspecified trimester (principal); O98.319 Other infections with a predominantly sexual mode of transmission complicating pregnancy, unspecified trimester; A60.09 Herpesviral infection of other urogenital tract; Z3A.38 38 weeks gestation of pregnancy | CPT/HCPCS: 80307; 84315 ==

== ENCOUNTER 2023-02-14 18:20 | Outpatient (CLI) | payer MEDICAID, SELFPAY ==
[2023-02-14] VITALS (9 sets, daily range): BP systolic 129–155; BP diastolic 69–88; PULSE 63–81; RESP 16–18; TEMP 36.3; BMI 35.9
[2023-02-14 19:16] LABS: Add Urine Microscopic? NO; Charge for UA Resulting for Rev
[2023-02-14 19:21] LABS: Bilirubin Urine Neg (Negative); Blood Urine Neg (Negative); Glucose Urine UA Norm (Normal); Ketones Urine 1+ (Negative); Leukocyte Esterase Urine Negative (Negative); Nitrate Urine Negative (Negative); Protein Urine Neg (Negative); Urine Appearance Clear (CLEAR); Urine Color Yellow (Yellow); Urobilinogen Urine Neg (Negative); pH Urine 5 (5-7)
== END 2023-02-14 20:10 | disposition home or self-care (01) ==
LOC: OPOB 18:26 → OBGYN 18:29
PROVIDERS: Obstetrics & Gynecology; PCP Nurse Practitioner Family; Visit Provider Obstetrics & Gynecology
DX: O26.899 Other specified pregnancy related conditions, unspecified trimester (principal); Z3A.00 Weeks of gestation of pregnancy not specified; R10.9 Unspecified abdominal pain
CPT/HCPCS: 59025; 81003; 99211

== ENCOUNTER 2023-02-20 13:12 | Inpatient (IN) | payer MEDICAID, SELFPAY ==
[2023-02-20] VITALS (26 sets, daily range): BP systolic 122–149; BP diastolic 65–98; PULSE 57–82; RESP 17; TEMP 36.6; BMI 36.1
[2023-02-20 14:22] LABS: Basophils % 0.3 %; Eosinophils # 0.1 10^3/uL (0.0-0.8); Eosinophils % 0.8 %; Hematocrit 41.6 % (36-47); Lymphocytes % 18.9 %; Mean Corpuscular HGB Conc 32.7 g/dL (30-55); Mean Corpuscular Hemoglobin 28.7 pg (27-33); Mean Corpuscular Volume 87.8 fl (85-98); Mean Platelet Volume 11.4 fL (7.4-10.4); Monocytes # 0.7 10^3/uL (0.2-0.9); Monocytes % 6.5 %; Neutrophils # 7.44 10^3/uL (1.8-7.7); Nucleated Red Blood Cells % 0 %; Platelet Count 237 10^3/cmm (157-399); Red Blood Count 4.74 10^6/uL (3.85-5.65); White Blood Count 10.32 10^3/uL (3.29-11.43)
[2023-02-20 14:33] LABS: Amphetamines Screen Urine Negative (Negative); Barbiturates Screen Urine Negative (Negative); Benzodiazepines Screen Urine Negative (Negative); Cocaine Screen Urine Negative (Negative); Opiate Screen Urine Negative (Negative); PCP Screen Urine Negative (Negative); THC Screen Urine Positive (Negative)
[2023-02-20 14:38] LABS: Alanine Aminotransferase 18 U/L (0-33); Albumin Level 3.7 g/dL (3.5-5.2); Alkaline Phosphatase 135 U/L (35-105); Anion Gap 17.5 (5-19); Aspartate Amino Transferase 15 U/L (0-32); Blood Urea Nitrogen 6 mg/dL (6-20); Calcium 8.6 mg/dL (8.5-10.5); Carbon Dioxide 19 mmol/L (22-29); Chloride 102 mmol/L (98-107); Glomerular Filtration Rate 150.3 mL/min (90-130); Glucose 133 mg/dL (65-115); Osmolality Calculated 280 mOsm/kg (285-295); Potassium 3.5 mmol/L (3.5-5.1); Sodium 135 mmol/L (136-145); Total Bilirubin 0.2 mg/dL (0.15-1.2); Total Protein 6.7 g/dL (6.6-8.7); Uric Acid 3.5 mg/dL (2.4-5.7)
[2023-02-20 14:45] LABS: Urine Creatinine 87 mg/dL (28-217); Urine Protein Random 12 mg/dL
[2023-02-20 14:47] LABS: UPRO/UCREAT Ratio 0.14 mg/mg CR
--- NOTE | 2023-02-20 15:10 | PM.OBGYHP ---
Providers/Chief Complaint Admitting Physician: Oliver Zimmerman MD Primary COMMODITY MANAGEMENT SPECIALIST: Oliver Zimmerman MD Primary Care Provider: Pretty Mcbride Chief Complaint: INDUCTION OF LABOR FOR ELEVATED BLOOD PRESSURES HPI COMMODITY MANAGEMENT SPECIALIST History of Present Illness 27 y.o. A1 EDC?? February 25, 2023 At 39 w 2 d With chronic hypertension Admitted for induction of labor No c/o No headaches, swelling + active movements PMHx:? bipolar II ? PTSD ? h/o genital herpes, 2019 PSHx:? cholecystectomy Meds:? acyclovir ? Hydroxyzine (Vistaril) 50 mg TID ? Promethazine 12.5 mg q 6 prn ? Quetiapine HS SHx:? + smoking ? h/o IVDA Present Details : 2 Para: 0 Labs Rubella: Immune RPR: Negative GBS: Negative Medications/Allergies Home Medications Medication Instructions Recorded Confirmed Last Taken Type acetaminophen 500 mg tablet 1,000 - 1,500 mg PO PRN 09/09/19 02/11/23 08/17/20 History (Tylenol Extra Strength) prenat.vits,briana,xme-blco-goxwe 1 tab PO DAILY #30 tabs 07/09/22 02/11/23 Unknown Rx promethazine 12.5 mg tablet 12.5 mg PO Q6H PRN nausea and 07/10/22 02/11/23 Unknown Rx vomiting #30 tabs hydroxyzine pamoate 50 mg capsule 50 mg PO TID PRN itching #90 caps 08/05/22 02/11/23 Unknown Rx (Vistaril) quetiapine 100 mg tablet See Rx Instructions .Route 08/08/22 02/11/23 Unknown Rx .COMPLEX #30 tabs acyclovir 400 mg tablet 400 mg PO TID Genital herpes #180 09/16/22 02/11/23 Unknown Rx tabs Allergies Allergy/AdvReac Type Severity Reaction Status Date / Time codeine Allergy Unknown Unknown Verified 02/11/23 13:55 dicyclomine Allergy Unknown Unknown Verified 02/11/23 13:55 shellfish derived Allergy Unknown Verified 02/11/23 13:55 PFSH COMMODITY MANAGEMENT SPECIALIST PFSH: Medical History Bipolar 2 disorder Gastritis Post-traumatic stress disorder, chronic Surgical History H/O oral surgery wisdom teeth History of colonoscopy 2020 History of esophagogastroduodenoscopy (EGD) History of tonsillectomy Status post laparoscopic cholecystectomy (09/25/20) Family History Grandmother No problems noted. Grandfather Diabetes paternal Heart disease paternal Hyperlipidemia paternal Stroke paternal Colon cancer paternal Mother Hypertension Family/Other Thyroid disease maternal aunt Denies family history of Ovarian cancer Clotting disorder Breast cancer Anesthesia complication Bleeding disorder Uterine cancer Other Female Reproductive History: Hx Age of Menarche: 17 History History History 2 Term 0 0 Miscarriages/Ectopic 1 Living Children 0 Care MARIANO Calculator Estimated Delivery Date Method Current WG Current Estimate 02/25/23 LMP (Certain) 39w 3d Vitals/I&O/Wt Last Vital Signs Temp 97.9 F 02/21/23 05:03 Pulse 78 02/21/23 07:01 Resp 16 02/21/23 02:49 BP 126/79 02/21/23 07:01 O2 Del Method Room Air 02/20/23 18:12 02/20/23 02/21/23 02/21/23 22:59 06:59 14:59 Intake Total 500 / 500 Balance 500 / 500 Weight last 48 hrs Weight 266 lb Physical Exam Narrative: Weight? 270? lbs;? 6? BPs? 136 / 91 Comfortable Awake, alert Lungs:? clear Cor:? RRR Abd:? nontender FH? 37 cm Cx:? 0 ?cm / 0 % / -3 / posterior Ext:? no edema External monitor:? heart tracing good variability,? + accelerations Data 02/20/23 13:25 02/20/23 13:25 Other data: GBS?negative Results Labs OB ([facility]): Obstetrics 02/04/23 Blood Type B Positive 02/20/23 Antibody Screen Negative 02/20/23 Hct 41.6 % (36-47) 02/20/23 Hgb 13.60 g/dL (11.27-16.99) 02/20/23 Rho(D) Type Rh positive 02/20/23 Plt Count 237 10^3/cmm (157-399) 02/20/23 Hep Bs Antigen Non-reactive (Nonreactive) 08/19/22 Hep B Core Total Ab Non-reactive (Nonreactive) 07/09/22 Hep Bs Antibody 67.8 (11.5-1000) 07/09/22 Hepatitis C Antibody Non-reactive (Nonreactive) 08/19/22 Rubella IgG Antibody 51.6 IU/mL (0.0-10.0) H 08/19/22 RPR Nonreactive (Nonreactive) 08/19/22 HIV 1&2 Ab & HIV 1 Ag Non-reactive (Non-Reactiv) 08/19/22 TSH 1.34 uIU/mL (0.27-4.20) 08/19/22 Cystic Fibrosis Screen Carrier 08/05/22 Uric Acid 3.5 mg/dL (2.4-5.7) 02/20/23 VZV IgG Antibody 1241.00 index 07/09/22 Ser , Semi-Qnt 13.18 mIU/mL 03/11/21 HCG, Qual Positive (Negative) H 07/09/22 Urine Opiates Screen Negative ng/mL (Negative) 02/20/23 Ur Barbiturates Screen Negative ng/mL (Negative) 02/20/23 Ur Phencyclidine Scrn Negative ng/mL (Negative) 02/20/23 Ur Amphetamines Screen Negative ng/mL (Negative) 02/20/23 U Benzodiazepines Scrn Negative ng/mL (Negative) 02/20/23 Urine Cocaine Screen Negative ng/mL (Negative) 02/20/23 U Marijuana (THC) Screen Positive ng/mL (Negative) H 02/20/23 Micro Urine Specimen 10/17/22 Pap Smear Interpret See note 08/19/22 A&P Assessment and plan (1) Supervision of other high-risk : 39 w 2 d (2) Chronic hypertension affecting : Admitted for labor induction Plan Cytotec 25 ug intravaginal Attestations Medical Necessity Statement*: patient at 39 w 2 d, with chronic hypertension, admitted for induction of labor Coding Level of Care Code Acute Code for Chg Fwd Diagnoses Supervision of other high-risk O09.899 Chronic hypertension affecting O10.919 Time Spent (min) 30
[2023-02-20] MEDS: miSOPROStol 100 mcg tablet 25 MCG VAGINAL ×2 (15:52→20:15)
[2023-02-20] MEDS: ondansetron 2 mg/ML SDV 2 mL 4 MG IVP (19:30)
[2023-02-20] MEDS: nicotine 14 mg Patch 1 PATCH TRANSDERMA (22:26)
[2023-02-21] VITALS (67 sets, daily range): BP systolic 118–160; BP diastolic 58–99; PULSE 56–78; RESP 16–18; TEMP 36.2–36.6
[2023-02-21] MEDS: ondansetron 2 mg/ML SDV 2 mL 4 MG IVP ×2 (00:29→17:07)
[2023-02-21] MEDS: miSOPROStol 100 mcg tablet 25 MCG VAGINAL ×2 (00:35→19:39)
[2023-02-21] MEDS: fentaNYL 50 mcg/mL INJ 2mL IVP ×5 (01:13→23:47)
--- NOTE | 2023-02-21 05:50 | PM.OBGYPN ---
PSYCHOLOGY TECHNICIAN Subjective Subjective: Interval history: Fetus reassuring Received two doses of Cytotec 25 ug feeling mild UCs Cervix:?? 2 cm? /? 50% / -3 Plan start pitocin Labor: Station: -3 Amniotic Membrane Status: Intact Monitor Mode: External Contraction Pattern: Regular Status: Category I Vitals/I&O/Wt Last Vital Signs Temp 97.9 F 02/21/23 05:03 Pulse 78 02/21/23 07:01 Resp 16 02/21/23 02:49 BP 126/79 02/21/23 07:01 O2 Del Method Room Air 02/20/23 18:12 02/20/23 02/21/23 02/21/23 22:59 06:59 14:59 Intake Total 500 / 500 Balance 500 / 500 Weight last 48 hrs Weight 266 lb Data 02/20/23 13:25 02/20/23 13:25 A&P Assessment and plan (1) Encounter for induction of labor: (2) Chronic hypertension affecting : Attestations Medical Necessity Statement*: patient at 39 w 3 d, with history of chronic hypertension, admitted for induction of labor Coding Level of Care Code Acute Code for Chg Fwd Diagnoses Encounter for induction of labor Z34.90 Chronic hypertension affecting O10.919 Time Spent (min) 20
[2023-02-21] MEDS: nicotine 14 mg Patch 1 PATCH TRANSDERMA (10:33)
[2023-02-21] MEDS: dextrose 5%-lactated ringers 1,000 ML 125 ML IV ×2 (10:34→17:57)
[2023-02-21] MEDS: oxytocin 30 UNIT/500 ML BAG IV (10:34)
[2023-02-21] MEDS: acetaminophen 325 mg Tablet 650 MG PO (18:02)
--- NOTE | 2023-02-21 19:23 | PM.PN ---
Subjective Subjective: 27yo female at 39.3 wk IUP with Hx of CHTN/Bipolar Ds/HSV(no recent outbreaks) and +UDS THC. Pt admitted 02/20/23 for Cervical Ripening/IOL. Pt presently on 20mu of Pitocin without Cervical change. Cx 2cm/th/firm Vtx -3. EFM- Cat 1 . Discussed plan with pt to stop Pitocin for now and use another dose of Cytotec to thin the cervix more for hopefully a better result with the pitocin. Pt and Mother agree with plan. Vitals/I&O/Wt Last Vital Signs Temp 97.2 F L 02/21/23 12:54 Pulse 73 02/21/23 17:59 Resp 18 02/21/23 17:06 BP 137/92 02/21/23 17:59 O2 Del Method Room Air 02/21/23 18:23 02/21/23 02/21/23 02/21/23 06:59 14:59 22:59 Intake Total 38.183 / 38.183 1509.500 / 1547.683 Balance 38.183 / 38.183 1509.500 / 1547.683 Weight last 48 hrs Weight 120.656 kg Data 02/20/23 13:25 02/20/23 13:25 A&P Assessment and plan (1) 39 weeks gestation of : (2) Encounter for induction of labor: (3) Chronic hypertension affecting : (4) Cystic fibrosis carrier: (5) Tobacco abuse: (6) Supervision of other high-risk : (7) Drug use affecting : (8) Genital herpes affecting : (9) Post-traumatic stress disorder, chronic: (10) Bipolar 2 disorder: Plan Continue care. Attestations Medical Necessity Statement*: IOL for delivery. Coding Level of Care Code Acute Code for Chg Fwd Diagnoses 39 weeks gestation of Z3A.39 Encounter for induction of labor Z34.90 Chronic hypertension affecting O10.919 Cystic fibrosis carrier Z14.1 Tobacco abuse Z72.0 Supervision of other high-risk O09.899 Drug use affecting O99.320 Genital herpes affecting O98.319; A60.09 Post-traumatic stress disorder, chronic F43.12 Bipolar 2 disorder F31.81
[2023-02-22] VITALS (60 sets, daily range): BP systolic 106–160; BP diastolic 56–93; PULSE 54–103; RESP 15–16; TEMP 35.8–36.8; O2SAT 98–100
[2023-02-22] MEDS: fentaNYL 50 mcg/mL INJ 2mL IVP ×3 (05:54→13:08)
[2023-02-22] MEDS: dextrose 5%-lactated ringers 1,000 ML 125 ML IV ×2 (07:12→22:11)
[2023-02-22] MEDS: nicotine 14 mg Patch 1 PATCH TRANSDERMA (11:46)
[2023-02-22] MEDS: lactated ringers 1,000 ML 999 ML IV ×2 (12:53→13:53)
--- NOTE | 2023-02-22 13:29 | PM.OBGYPN ---
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 Pitocin presently on 10 milliunits. Manisha every 2 to 3 minutes. Patient has started to complain of contraction pain. Cervical exam?3 cm / 60%/-2 vertex presentation. AROM?clear fluid. Patient requesting epidural for pain management. EFM?category 1. Labor: Station: -2 Amniotic Membrane Status: Ruptured Monitor Mode: External Contraction Pattern: Occasional Status: Category I Vitals/I&O/Wt Last Vital Signs Temp 97.3 F L 02/22/23 04:47 Pulse 67 02/22/23 09:53 Resp 15 02/22/23 13:08 BP 126/59 02/22/23 09:53 O2 Del Method Room Air 02/21/23 18:23 02/21/23 02/22/23 02/22/23 22:59 06:59 14:59 Intake Total 1509.500 / 6399.966 7439.083 / 2555.766 38.034 / 38.034 Balance 1509.500 / 6583.091 4314.083 / 2555.766 38.034 / 38.034 Data 02/20/23 13:25 02/20/23 13:25 A&P Assessment and plan (1) 39 weeks gestation of : (2) Encounter for induction of labor: Continue present care. We will proceed and get patient an epidural for pain management. (3) Chronic hypertension affecting : (4) Genital herpes affecting : (5) Post-traumatic stress disorder, chronic: (6) Bipolar 2 disorder: Attestations Medical Necessity Statement*: Induction of labor Coding Level of Care Code Acute Code for Chg Fwd Diagnoses 39 weeks gestation of Z3A.39 Encounter for induction of labor Z34.90 Chronic hypertension affecting O10.919 Genital herpes affecting O98.319; A60.09 Post-traumatic stress disorder, chronic F43.12 Bipolar 2 disorder F31.81
--- NOTE | 2023-02-22 14:00 | ANES.PREANE2 ---
Pre-Anesthetic Assessment Height/Weight: Height 1.83 m Weight 120.656 kg Temp Pulse Resp BP Pulse Ox O2 Del Method 98.2 F 83 15 146/88 100 Room Air 02/22/23 14:00 02/22/23 14:12 02/22/23 13:08 02/22/23 14:10 02/22/23 14:12 02/21/23 18:23 Preop Diagnosis: IUP labor epidural Familial anesthetic complications: none Was Beta Neva taken within 24 hours: N/A Was Clonidine taken within 24 hours: N/A Social Tobacco and No alcohol Exam alert and oriented x 3 Airway Submandibular: within normal limits Cervical ROM: within normal limits Mallampati: Class II Dentition: full History/ROS No significant history except as noted Pulmonary Asthma CV/HEM Hypertension Anesthetic Plan ASA status: 3 Anesthesia: Anesthesia Evaluation and Regional (specify below) Medications/Allergies Home Medications Medication Instructions Recorded Confirmed Last Taken Type acetaminophen 500 mg tablet 1,000 - 1,500 mg PO PRN 09/09/19 02/11/23 08/17/20 History (Tylenol Extra Strength) prenat.vits,briana,[id number] 1 tab PO DAILY #30 tabs 07/09/22 02/11/23 Unknown Rx promethazine 12.5 mg tablet 12.5 mg PO Q6H PRN nausea and 07/10/22 02/11/23 Unknown Rx vomiting #30 tabs hydroxyzine pamoate 50 mg capsule 50 mg PO TID PRN itching #90 caps 08/05/22 02/11/23 Unknown Rx (Vistaril) quetiapine 100 mg tablet See Rx Instructions .Route 08/08/22 02/11/23 Unknown Rx .COMPLEX #30 tabs acyclovir 400 mg tablet 400 mg PO TID Genital herpes #180 09/16/22 02/11/23 Unknown Rx tabs Allergies Allergy/AdvReac Type Severity Reaction Status Date / Time codeine Allergy Unknown Unknown Verified 02/11/23 13:55 dicyclomine Allergy Unknown Unknown Verified 02/11/23 13:55 shellfish derived Allergy Unknown Verified 02/11/23 13:55 Current Medications Generic Name Dose Route Start Last Admin Trade Name Freq PRN Reason Stop Dose Admin Acetaminophen 650 mg 02/20/23 13:59 02/21/23 18:02 Acetaminophen 325 Mg Tablet PO 650 mg Q6H PRN Administration Mild pain or temp > 100.4 Fentanyl 25 - 100 mcg 02/20/23 13:59 02/22/23 13:08 Fentanyl 50 Mcg/Ml Inj 2ml IVP 25 mcg Q1H PRN Administration SEVERE PAIN Dextrose/Lactated Ringer's 1,000 mls @ 125 mls/hr 02/20/23 14:00 02/22/23 11:00 Dextrose 5%-Lactated Ringers IV Not Given .Q8H DAI Oxytocin 30 unit in 500 mls @ 1 mls/hr 02/21/23 10:00 02/22/23 10:58 Pitocin IV 10 milliunit/min .Q24H DAI 10 mls/hr Titration Protocol 1 MILLIUNIT/MIN Lactated Ringer's 1,000 mls @ 999 mls/hr 02/22/23 12:50 02/22/23 13:53 Lactated Ringers IV 999 mls/hr .Q1H1M PRN Administration See label comments Nicotine 1 patch 02/20/23 21:33 02/22/23 11:46 Nicotine 14 Mg Patch TRANSDERMA 1 patch DAILY DAI Administration Ondansetron HCl 4 mg 02/20/23 13:59 02/21/23 17:07 Ondansetron 2 Mg/Ml Sdv 2 Ml IVP 4 mg Q4H PRN Administration NAUSEA AND VOMITING PFSH Anesthesia Medical History Bipolar 2 disorder Gastritis Post-traumatic stress disorder, chronic Surgical History H/O oral surgery wisdom teeth History of colonoscopy 2020 History of esophagogastroduodenoscopy (EGD) History of tonsillectomy Status post laparoscopic cholecystectomy (09/25/20) Family History Grandmother No problems noted. Grandfather Diabetes paternal Heart disease paternal Hyperlipidemia paternal Stroke paternal Colon cancer paternal Mother Hypertension Family/Other Thyroid disease maternal aunt Denies family history of Ovarian cancer Clotting disorder Breast cancer Anesthesia complication Bleeding disorder Uterine cancer Female Reproductive History : 2 Data Anesthesia 02/20/23 13:25 02/20/23 13:25 Short CBC 02/20/23 Range/Units 13:25 WBC 10.32 (3.29-11.43) 10^3/uL Hgb 13.60 (11.27-16.99) g/dL Hct 41.6 (36-47) % MCV 87.8 (85-98) fl Plt Count 237 (157-399) 10^3/cmm Neut % (Auto) 72.0 % Neut # (Auto) 7.44 (1.8-7.7) 10^3/uL BMP 02/20/23 13:25 Sodium 135 L Potassium 3.5 Chloride 102 Carbon Dioxide 19 L BUN 6 Creatinine 0.5 Glucose 133 H Calcium 8.6 Liver Function 02/20/23 Range/Units 13:25 Total Bilirubin 0.2 (0.15-1.2) mg/dL AST 15 (0-32) U/L ALT 18 (0-33) U/L Alkaline Phosphatase 135 H (35-105) U/L Albumin 3.7 (3.5-5.2) g/dL Blood Bank 02/20/23 13:25 Blood Type B Positive Rho(D) Type Rh positive Antibody Screen Negative Cardiac Studies: No Data to Display
[2023-02-22] MEDS: ROPivacaine syringe 100 MG/50 ML SYRINGE 13 MG EPIDURAL ×3 (14:14→20:40)
--- NOTE | 2023-02-22 14:14 | P.ANES_ITS ---
Anesthesia Procedures Procedure/Date: 02/22/23 Epidural: Time Out Performed: Yes Consents Signed: Procedure Consent Consent: from patient, risks and benefits reviewed and patient agrees to proceed Lumbar Level: L3-L4 Epidural position: sitting Epidural procedure: sterile prep of area, 1% lidocaine to numb the area, 18 g needle, negative for p aresthesia passed, neg for paresthesia, test dose given, 1.5% xylocaine 1:200k epi, placed PCEA, no systemic response, sterile dressing applied, L.U.D. no apparent complications and 0.2% Ropiavacaine @ mls/hr (13) Additional Comments: MIN at 5. negative blood/CSF upon aspiration. taped at 12 at skin.
[2023-02-22] MEDS: ondansetron 2 mg/ML SDV 2 mL 4 MG IVP (18:40)
--- NOTE | 2023-02-22 22:32 | PM.OBGYPN ---
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 EFM?category 1 Cervix?complete/+1 Discussed plan to discontinue epidural in order for patient to start feeling the desire to push. Labor: Station: +1 Amniotic Membrane Status: Ruptured Monitor Mode: External Contraction Pattern: Irregular Status: Category I Vitals/I&O/Wt Last Vital Signs Temp 96.4 F L 02/22/23 17:27 Pulse 89 02/22/23 22:26 Resp 15 02/22/23 13:08 BP 138/79 02/22/23 22:26 Pulse Ox 99 02/22/23 15:22 O2 Del Method Room Air 02/21/23 18:23 02/22/23 02/22/23 02/22/23 06:59 14:59 22:59 Intake Total 1008.083 / 2555.766 1037.034 / 7776.940 8205.167 / 2208.201 Balance 1008.083 / 2555.766 1037.034 / 5509.311 7006.167 / 2208.201 Physical Exam Urinary Catheter Management: Richter Latex: Cath Placed During This Visit: yes Reason for Continuing Indwelling Catheter: Required Immobilization for Trauma or Surgery or Anesthesia Urinary Catheter Date of Insertion: 02/22/23 Urinary Catheter Time of Insertion: 14:52 Data 02/20/23 13:25 02/20/23 13:25 A&P Assessment and plan (1) 39 weeks gestation of : (2) Encounter for induction of labor: (3) Chronic hypertension affecting : (4) Tobacco abuse: (5) Supervision of other high-risk : (6) Drug use affecting : (7) Genital herpes affecting : (8) Post-traumatic stress disorder, chronic: (9) Bipolar 2 disorder: Attestations Medical Necessity Statement*: Induction of labor for chronic hypertension at 39.3 weeks Coding Level of Care Code Acute Code for Chg Fwd Diagnoses 39 weeks gestation of Z3A.39 Encounter for induction of labor Z34.90 Chronic hypertension affecting O10.919 Tobacco abuse Z72.0 Supervision of other high-risk O09.899 Drug use affecting O99.320 Genital herpes affecting O98.319; A60.09 Post-traumatic stress disorder, chronic F43.12 Bipolar 2 disorder F31.81
[2023-02-23] VITALS (13 sets, daily range): BP systolic 129–167; BP diastolic 75–102; PULSE 67–82; RESP 16–18; TEMP 36.6–36.8; O2SAT 98–99
--- NOTE | 2023-02-23 00:03 | PM.DELIVERY ---
Delivery Note: Date of delivery: February 23, 2023 Pre-delivery diagnoses: 39.4 weeks gestation with chronic hypertension History of HSV (no active lesions) Post-delivery diagnoses: Same Procedure: Cervical ripening/induction of labor Op report anesthesia: Epidural Delivering Physician: Earlene Sanchez DO Estimated blood loss (mL): 300 Findings: Viable baby boy 6 pounds Delivery: 27-year-old G2, P1 delivered via a viable baby boy OA presentation followed by the anterior and posterior shoulders then the remainder of the baby's body. Robust spontaneous cry was noted. The oral and nasal pathways bulb suctioned. After delay of cord clamping the cord was clamped and cut and baby placed on the mother's abdomen for bonding. Three-vessel cord was noted. Blood gases as well as cord blood was drawn and handed off. The uterus was massaged and the placenta presented in a [place] presentation with trailing membranes. Pitocin IV solution was started in a bolus manner the uterus was massaged and firmed well. Minimal bleeding resulted. The uterus was expressed vaginal vault explored with no lacerations noted. Anesthesia?epidural EBL 300ml 9/9 weight 6 pounds 0 Mother and are both in stable and satisfactory condition. Post-Delivery Status: Stable History History History 2 Term 0 0 Miscarriages/Ectopic 1 Living Children 0 A&P Assessment and plan (1) 39 weeks gestation of : S/p viable male Chronic hypertension P. Begin care (2) Encounter for induction of labor: (3) Chronic hypertension affecting : (4) Cystic fibrosis carrier: (5) Tobacco abuse: (6) Supervision of other high-risk : (7) Drug use affecting : (8) Genital herpes affecting : (9) Post-traumatic stress disorder, chronic: (10) Bipolar 2 disorder: Coding Level of Care Code Acute Code for Chg Fwd Diagnoses 39 weeks gestation of Z3A.39 Encounter for induction of labor Z34.90 Chronic hypertension affecting O10.919 Cystic fibrosis carrier Z14.1 Tobacco abuse Z72.0 Supervision of other high-risk O09.899 Drug use affecting O99.320 Genital herpes affecting O98.319; A60.09 Post-traumatic stress disorder, chronic F43.12 Bipolar 2 disorder F31.81
[2023-02-23] MEDS: ibuprofen 800 mg tablet PO ×3 (02:27→15:41)
[2023-02-23] MEDS: prenatal vitamin Capsule 1 CAP PO (08:47)
[2023-02-23 12:06] LABS: Hematocrit 35.9 % (36-47); Mean Corpuscular HGB Conc 34.3 g/dL (30-55); Mean Corpuscular Hemoglobin 29.2 pg (27-33); Mean Corpuscular Volume 85.3 fl (85-98); Mean Platelet Volume 11.1 fL (7.4-10.4); Platelet Count 199 10^3/cmm (157-399); Red Blood Count 4.21 10^6/uL (3.85-5.65); Red Cell Distribution Width 12.9 % (12.1-15.1); White Blood Count 14.98 10^3/uL (3.29-11.43)
[2023-02-23 12:44] LABS: Alanine Aminotransferase 14 U/L (0-33); Albumin Level 3.3 g/dL (3.5-5.2); Alkaline Phosphatase 114 U/L (35-105); Anion Gap 11.9 (5-19); Aspartate Amino Transferase 20 U/L (0-32); Blood Urea Nitrogen 9 mg/dL (6-20); Carbon Dioxide 20 mmol/L (22-29); Chloride 107 mmol/L (98-107); Globulin 2.7 g/dL (1.3-4.6); Glomerular Filtration Rate 194.5 mL/min (90-130); Glucose 70 mg/dL (65-115); Osmolality Calculated 277 mOsm/kg (285-295); Potassium 3.9 mmol/L (3.5-5.1); Sodium 135 mmol/L (136-145); Total Bilirubin 0.3 mg/dL (0.15-1.2)
--- NOTE | 2023-02-23 15:49 | P.PN_ITS ---
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 Denies ZABALA, blurred vision or Abdomen pain. Denies heavy bleeding. Ambulating, tolerating regular diet, voiding and caring for baby boy. Discussion of CHTN and her VS today. Recommended to start meds. Labetolol 100mg BID. Pt agrees. If tolerated well would Rx for home. VSS, afbrile Abd- soft, fundus firm, Lochia light. Ext- no edema, neg Homans Lab- reviewed. Labor: Station: +1 Amniotic Membrane Status: Ruptured Monitor Mode: External Contraction Pattern: Regular Status: Category I Vitals/I&O/Wt Last Vital Signs Temp 98.1 F 02/23/23 10:40 Pulse 75 02/23/23 10:40 Resp 18 02/23/23 06:32 BP 167/95 02/23/23 10:52 Pulse Ox 99 02/23/23 10:40 O2 Del Method Room Air 02/23/23 10:40 02/23/23 02/23/23 02/23/23 06:59 14:59 22:59 Output Total 1200 / 1200 Balance -1200 / 1008.201 Physical Exam Urinary Catheter Management: Richter Latex: Cath Placed During This Visit: yes, but has since been removed by the nurse Reason for Continuing Indwelling Catheter: Decision to DC Catheter Urinary Catheter Date of Insertion: 02/22/23 Urinary Catheter Time of Insertion: 14:52 Date Urinary Catheter Removed: 02/22/23 Time Urinary Catheter Discontinued: 23:30 Data 02/23/23 11:52 02/23/23 11:52 Attestations Medical Necessity Statement*: IOL Coding Level of Care Code Acute Code for Chg Fwd Diagnoses
[2023-02-23] MEDS: labetalol 200 mg Tablet 100 MG PO (16:07)
[2023-02-23] MEDS: acetaminophen 325 mg Tablet 650 MG PO (20:11)
[2023-02-24] MEDS: acetaminophen 325 mg Tablet 650 MG PO (03:49)
[2023-02-24] MEDS: labetalol 200 mg Tablet 100 MG PO (03:50)
[2023-02-24 03:56] VITALS: BP 152/97; PULSE 69; RESP 15; TEMP 36.6; O2SAT 99
--- NOTE | 2023-02-24 09:21 | ANE.PACU2 ---
Inpatient post-anesthesia follow up: Airway intact: Yes Vital signs: Temperature 97.9 F Pulse Rate 69 Respiratory Rate 15 Blood Pressure 152/97 Pulse Oximetry 99 Oxygen Delivery Me thod Room Air Oxygen Flow Rate Fraction of Inspir ed Oxygen Hydration adequate: Yes Nausea and vomiting: No Pain level: 2 Mental status: Baseline Additional Comments: Anes start 02/22/23 1400 Anes end 02/23/23 0003
[2023-02-24] MEDS: nicotine 14 mg Patch 1 PATCH TRANSDERMA (09:36)
[2023-02-24] MEDS: prenatal vitamin Capsule 1 CAP PO (09:36)
[2023-02-24] MEDS: ibuprofen 800 mg tablet PO (09:37)
[2023-02-24 10:00] VITALS: BP 151/89; PULSE 66; RESP 16; TEMP 36.9; O2SAT 99
[2023-02-24 10:55] VITALS: BP 151/89; PULSE 66; RESP 16; TEMP 36.9; O2SAT 99
--- NOTE | 2023-02-24 11:10 | P.DS_ITS ---
Discharge Providers CUSTOMER SECURITY CLERK Date of Admission: 02/20/23 13:12 Date of Discharge: 02/24/23 Attending Provider at Admission: Oliver Zimmerman MD Attending Provider at Discharge: Oliver Zimmerman MD Primary CUSTOMER SECURITY CLERK: Dr. Zimmerman Primary Care Provider: Pretty Mcbride Diagnoses at Discharge Discharge Diagnosis (1) 39 weeks gestation of : Details from hospital stay: 27-year-old female delivered via a viable male infant. Patient stay has been complicated with her chronic hypertension. Patient denies headaches blurred vision abdominal pain or excessive vaginal bleeding. Reviewed with patient again need for medication for her hypertension. Started patient on labetalol 100 mg but systolic and diastolics have remained elevated will increase dose to 200 mg twice daily. Patient understands and agrees to comply. Patient has been counseled on discontinuing drug use (THC) as well as tobacco. Counseled patient on expectations, to include no heavy lifting pushing pulling no sex douching tampons x6 weeks. Patient is to continue her vitamins which she has at home. She may resume her other meds from home as well. VSS, afebrile Abdomen?soft, fundus firm, lochia light. Extremities?no edema, negative Homans' sign Status: Acute (2) Encounter for induction of labor: Status: Acute (3) Chronic hypertension affecting : Status: Acute (4) Cystic fibrosis carrier: Status: Acute (5) Tobacco abuse: Status: Acute (6) Supervision of other high-risk : Status: Acute (7) Drug use affecting : Status: Acute (8) Genital herpes affecting : Status: Acute (9) Post-traumatic stress disorder, chronic: Status: Acute (10) Bipolar 2 disorder: Status: Acute Reason for Visit Reason for Visit: INDUCTION OF LABOR FOR ELEVATED BLOOD PRESSURES Information Peripartum Data: Infant Delivery Method: Vaginal Physical Exam Urinary Catheter Management: Richter Latex: Cath Placed During This Visit: yes, but has since been removed by the nurse Reason for Continuing Indwelling Catheter: Decision to DC Catheter Urinary Catheter Date of Insertion: 02/22/23 Urinary Catheter Time of Insertion: 14:52 Date Urinary Catheter Removed: 02/22/23 Time Urinary Catheter Discontinued: 23:30 History History History 2 Term 0 0 Miscarriages/Ectopic 1 Living Children 0 Discharge Data Studies Completed and Pending Laboratory Results WBC 14.98 10^3/uL (3.29-11.43) H 02/23/23 11:52 RBC 4.21 10^6/uL (3.85-5.65) 02/23/23 11:52 Hgb 12.30 g/dL (11.27-16.99) 02/23/23 11:52 Hct 35.9 % (36-47) L 02/23/23 11:52 MCV 85.3 fl (85-98) 02/23/23 11:52 MCH 29.2 pg (27-33) 02/23/23 11:52 MCHC 34.3 g/dL (30-55) 02/23/23 11:52 RDW 12.9 % (12.1-15.1) 02/23/23 11:52 Plt Count 199 10^3/cmm (157-399) 02/23/23 11:52 MPV 11.1 fL (7.4-10.4) H 02/23/23 11:52 Neut % (Auto) 72.0 % 02/20/23 13:25 Lymph % (Auto) 18.9 % 02/20/23 13:25 Hill % (Auto) 6.5 % 02/20/23 13:25 Eos % (Auto) 0.8 % 02/20/23 13:25 Baso % (Auto) 0.3 % 02/20/23 13:25 Neut # (Auto) 7.44 10^3/uL (1.8-7.7) 02/20/23 13:25 Lymph # (Auto) 2.0 10^3/uL (0.8-4.8) 02/20/23 13:25 Hill # (Auto) 0.7 10^3/uL (0.2-0.9) 02/20/23 13:25 Eos # (Auto) 0.1 10^3/uL (0.0-0.8) 02/20/23 13:25 Baso # (Auto) 0.0 10^3/uL (0.0-0.1) 02/20/23 13:25 Nucleated RBC % (auto) 0 % 02/20/23 13:25 Nucleated RBCs # 0.0 /100WBC 02/20/23 13:25 Sodium 135 mmol/L (136-145) L 02/23/23 11:52 Potassium 3.9 mmol/L (3.5-5.1) 02/23/23 11:52 Chloride 107 mmol/L (98-107) 02/23/23 11:52 Carbon Dioxide 20 mmol/L (22-29) L 02/23/23 11:52 Anion Gap 11.9 (5-19) 02/23/23 11:52 BUN 9 mg/dL (6-20) 02/23/23 11:52 Creatinine 0.4 mg/dL (0.5-0.9) L 02/23/23 11:52 GFR Calculation 194.5 mL/min (90-130) H 02/23/23 11:52 Glucose 70 mg/dL (65-115) 02/23/23 11:52 Calculated Osmolality 277 mOsm/kg (285-295) L 02/23/23 11:52 Uric Acid 3.5 mg/dL (2.4-5.7) 02/20/23 13:25 Calcium 9.0 mg/dL (8.5-10.5) 02/23/23 11:52 Total Bilirubin 0.3 mg/dL (0.15-1.2) 02/23/23 11:52 AST 20 U/L (0-32) 02/23/23 11:52 ALT 14 U/L (0-33) 02/23/23 11:52 Alkaline Phosphatase 114 U/L (35-105) H 02/23/23 11:52 Total Protein 6.0 g/dL (6.6-8.7) L 02/23/23 11:52 Albumin 3.3 g/dL (3.5-5.2) L 02/23/23 11:52 Globulin 2.7 g/dL (1.3-4.6) 02/23/23 11:52 U Random Total Protein 12 mg/dL 02/20/23 13:25 Urine Creatinine 87 mg/dL (28-217) 02/20/23 13:25 Protein/Creatinin Ratio 0.14 mg/mg CR 02/20/23 13:25 Urine Opiates Screen Negative ng/mL (Negative) 02/20/23 13:25 Ur Barbiturates Screen Negative ng/mL (Negative) 02/20/23 13:25 Ur Phencyclidine Scrn Negative ng/mL (Negative) 02/20/23 13:25 Ur Amphetamines Screen Negative ng/mL (Negative) 02/20/23 13:25 U Benzodiazepines Scrn Negative ng/mL (Negative) 02/20/23 13:25 Urine Cocaine Screen Negative ng/mL (Negative) 02/20/23 13:25 U Marijuana (THC) Screen Positive ng/mL (Negative) H 02/20/23 13:25 Blood Type B Positive 02/20/23 13:25 Rho(D) Type Rh positive 02/20/23 13:25 Antibody Screen Negative 02/20/23 13:25 Vitals Last Vital Signs Temp 98.5 F 02/24/23 10:55 Pulse 66 02/24/23 10:55 Resp 16 02/24/23 10:55 BP 151/89 02/24/23 10:55 Pulse Ox 99 02/24/23 10:55 O2 Del Method Room Air 02/24/23 10:00 Results Labs OB ([facility]): Obstetrics US 02/04/23 Blood Type B Positive 02/20/23 Antibody Screen Negative 02/20/23 Hct 35.9 % (36-47) L 02/23/23 Hgb 12.30 g/dL (11.27-16.99) 02/23/23 Rho(D) Type Rh positive 02/20/23 Plt Count 199 10^3/cmm (157-399) 02/23/23 Hep Bs Antigen Non-reactive (Nonreactive) 08/19/22 Hep B Core Total Ab Non-reactive (Nonreactive) 07/09/22 Hep Bs Antibody 67.8 (11.5-1000) 07/09/22 Hepatitis C Antibody Non-reactive (Nonreactive) 08/19/22 Rubella IgG Antibody 51.6 IU/mL (0.0-10.0) H 08/19/22 RPR Nonreactive (Nonreactive) 08/19/22 HIV 1&2 Ab & HIV 1 Ag Non-reactive (Non-Reactiv) 08/19/22 TSH 1.34 uIU/mL (0.27-4.20) 08/19/22 Cystic Fibrosis Screen Carrier 08/05/22 Uric Acid 3.5 mg/dL (2.4-5.7) 02/20/23 VZV IgG Antibody 1241.00 index 07/09/22 Ser , Semi-Qnt 13.18 mIU/mL 03/11/21 HCG, Qual Positive (Negative) H 07/09/22 Urine Opiates Screen Negative ng/mL (Negative) 02/20/23 Ur Barbiturates Screen Negative ng/mL (Negative) 02/20/23 Ur Phencyclidine Scrn Negative ng/mL (Negative) 02/20/23 Ur Amphetamines Screen Negative ng/mL (Negative) 02/20/23 U Benzodiazepines Scrn Negative ng/mL (Negative) 02/20/23 Urine Cocaine Screen Negative ng/mL (Negative) 02/20/23 U Marijuana (THC) Screen Positive ng/mL (Negative) H Micro Urine Specimen 10/17/22 Pap Smear Interpret See note 08/19/22 Discharge Plan Discharge Patient Disposition: Home Condition: Stable Prescriptions: New labetalol 200 mg Tablet 200 mg PO Q12H Qty: 60 0RF Continued prenat.vits,briana,wyk-ykbf-ajejd Tablet 1 tab PO DAILY Qty: 30 6RF hydroxyzine pamoate [Vistaril] 50 mg capsule 50 mg PO TID PRN (Reason: itching) Qty: 90 6RF promethazine 12.5 mg tablet 12.5 mg PO Q6H PRN (Reason: nausea and vomiting) Qty: 30 3RF quetiapine 100 mg tablet See Rx Instructions .ROUTE .COMPLEX Qty: 30 12RF Dose Instruction: TAKE ONE TABLET BY MOUTH AT BEDTIME Rx Instructions: TAKE ONE TABLET BY MOUTH AT BEDTIME acyclovir 400 mg tablet 400 mg PO TID Qty: 180 3RF acetaminophen [Tylenol Extra Strength] 500 mg Tablet 1,000 - 1,500 mg PO PRN Discharge Orders: Discharge Order (Routine); Ordered 02/24/23 Ordered By: Earlene Sanchez Referrals: Oliver Zimmerman MD [Physician] - 03/17/23 8:15 am (You have an appointment with Dr. Zimmerman on March 17 at 8:15 am.) Discharge Diet: Regular Discharge Activity: Increase activity as tolerated Patient Instructions: Labetalol (By mouth), Depression (DC), Bleeding (DC), Preeclampsia and Eclampsia After Delivery (GEN), Vaginal Delivery (DC), Hemorrhage (DC), OB Discharge Report, OB Food/Drug Interaction Guide, OB Care at Home, Opioid Safety Activity Restrictions/Additional Instructions: No heavy lifting pushing or pulling no sex douching tampons x6 weeks. Patient is to abstain from drug use as well as tobacco abuse. Assessment: 1. S/p viable male 2. Chronic hypertension 3. Drug use during (THC) 4. Tobacco abuse during 5. HSV (no recent outbreak) 6. PTSD?chronic 7. Bipolar disorder Plan of Treatment: Discharge patient to home Follow-up with Dr. Zimmerman in 4 weeks Labetalol 200 mg twice daily Discharge Attestations CUSTOMER SECURITY CLERK Time Spent in Discharge Care*: less than 30 min Coding Level of Care Code Acute Code for Chg Fwd Diagnoses 39 weeks gestation of Z3A.39 Encounter for induction of labor Z34.90 Chronic hypertension affecting O10.919 Cystic fibrosis carrier Z14.1 Tobacco abuse Z72.0 Supervision of other high-risk O09.899 Drug use affecting O99.320 Genital herpes affecting O98.319; A60.09 Post-traumatic stress disorder, chronic F43.12 Bipolar 2 disorder F31.81
== END 2023-02-24 12:56 | disposition home or self-care (01) | DRG 806 ==
LOC: OBGYN 13:12
PROVIDERS: Obstetrics & Gynecology; Admitting Provider Obstetrics & Gynecology; PCP Nurse Practitioner Family; Visit Provider Obstetrics & Gynecology
DX: O10.02 Pre-existing essential hypertension complicating childbirth (principal); F31.81 Bipolar II disorder; Z37.0 Single live birth; O99.324 Drug use complicating childbirth; O98.32 Other infections with a predominantly sexual mode of transmission complicating childbirth; Z3A.39 39 weeks gestation of pregnancy; O99.334 Smoking (tobacco) complicating childbirth; F17.210 Nicotine dependence, cigarettes, uncomplicated; F12.10 Cannabis abuse, uncomplicated; F43.12 Post-traumatic stress disorder, chronic; O99.344 Other mental disorders complicating childbirth; Z14.1 Cystic fibrosis carrier; A60.09 Herpesviral infection of other urogenital tract
CPT/HCPCS: 36415; 51702; 59025; 59409; 80053; 80306; 82570; 84156; 84550; 85025; 85027; 86850; 86900; 96374; 96375; J2405; J2590; J2795; J3010; J7120; J7121

== ENCOUNTER → 2023-03-24 10:50 | Outpatient (BNVA) | payer MEDICAID, SELFPAY | PROVIDERS: PCP Nurse Practitioner Family; Visit Provider Obstetrics & Gynecology | DX: Z30.9 Encounter for contraceptive management, unspecified (principal) | CPT/HCPCS: 81025 ==

== ENCOUNTER → 2023-04-25 13:58 | Outpatient (BNVA) | payer MEDICAID, SELFPAY | PROVIDERS: PCP Nurse Practitioner Family; Visit Provider Nurse Practitioner Family | DX: R50.9 Fever, unspecified (principal) | CPT/HCPCS: 87400 ==

== ENCOUNTER → 2023-07-08 11:09 | Outpatient (BNVA) | payer MEDICAID, SELFPAY | PROVIDERS: PCP Nurse Practitioner Family; Visit Provider Nurse Practitioner Family | DX: A60.00 Herpesviral infection of urogenital system, unspecified (principal); J02.9 Acute pharyngitis, unspecified; J40 Bronchitis, not specified as acute or chronic; K14.3 Hypertrophy of tongue papillae | CPT/HCPCS: 87070 ==